=== PATIENT | female | born 1955 | race Caucasian/White ===

== ENCOUNTER 2022-08-13 15:16 | Outpatient (CLI) | payer MEDICARE, BC, SELFPAY ==
[2022-08-13 10:21] LABS: Albumin* 4.1 g/dL (3.3-5.0); Chloride* 103 mmol/L (96-114); Sodium* 140 mmol/L (135-149)
[2022-08-13 10:23] LABS: Carbon Dioxide* 26 mmol/L (20-32); Cholesterol* 244 mg/dL (90-199); Creatinine* 0.7 mg/dL (0.5-1.5); Estimated Glomerular Filt Rate 95 ml/min
[2022-08-13 10:24] LABS: Alanine Aminotransferase* 21 U/L (4-35); Alkaline Phosphatase* 70 U/L (40-150); Aspartate Amino Transferase* 24 U/L (12-35); Bilirubin Total* 0.5 mg/dL (0.1-1.5); Blood Urea Nitrogen* 18 mg/dL (7-30); Calcium* 9.1 mg/dL (8.4-10.6); Glucose* 114 mg/dL (60-115); HDL Cholesterol* 67 mg/dL (>=50); LDL Cholesterol Calculated 125 mg/dL (<100); Total Protein* 6.6 g/dL (6.0-8.3); Triglycerides* 261 mg/dL (40-149)
== END 2022-08-13 15:17 | disposition home or self-care (01) ==
PROVIDERS: PCP Family Medicine; Visit Provider Family Medicine
DX: Z00.00 Encounter for general adult medical examination without abnormal findings (principal); E78.5 Hyperlipidemia, unspecified
CPT/HCPCS: 80053; 80061

== ENCOUNTER 2022-08-18 09:20 | Outpatient (CLI) | payer MEDICARE, BC, SELFPAY ==
--- OUTSIDE RECORDS SUMMARY | 2022-08-18 09:23 | XMS_ITS | Clinical Summary ---
:1955 Author Organization [facility] Address [address] [place] [address]. [place] [address] Care Team Providers Name Role Phone Charlotte Gillespie MD Primary Care Provider [phone] Allergies Active Allergy Reactions Severity Noted Date Comments Carbamazepine Unknown 02/27/2020 Mirtazapine 12/18/2021 Weight gain Trazodone 12/18/2021 nightmares Zolpidem 12/18/2021 nightmares Medications Medication Sig Dispensed Refills Start Date End Date Status pregabalin (LYRICA) Take 100 mg by mouth 0 Active 100 MG capsule 2 times daily vitamin D3 Take 1 tablet by 0 Ac tive (CHOLECALCIFEROL) 50 mouth daily mcg (2000 units) tablet estradiol (ESTRACE) Take 1 mg by mouth 0 Active 1 MG tablet daily DULoxetine Take 20 mg by mouth 0 Active (CYMBALTA) 20 MG daily capsule polyethylene glycol Take 1 capful by 0 Active (MIRALAX) 17 GM/Dose mouth daily as powder needed for constipation multivitamin Take 1 tablet by 0 Active w/minerals mouth daily (MULTI-VITAMIN) tablet Probiotic, Take 2 capsules by 0 Active Lactobacillus, CAPS mouth daily senna-docusate Take 1 tablet by 0 Active (SENOKOT-S/PERICOLAC mouth 2 times daily E) 8.6-50 MG tablet as needed for constipation Take 0.5 - 1 tab daily PRN cetirizine (ZYRTEC) Take 10 mg by mouth 0 Active 10 MG tablet daily as needed for allergies sulfamethoxazole-tri TAKE 1 TABLET BY 0 12/21/2021 Active methoprim (BACTRIM MOUTH TWICE A DAY DS) 800-160 MG tablet ibuprofen Take 1 tablet (600 30 tablet 0 12/29/2021 Active (ADVIL/MOTRIN) 600 mg) by mouth every 6 MG hours as needed for tabletIndications: moderate pain Post-operative state Active Problems Problem Noted Date Post-operative state 12/28/2021 Social History Tobacco Use Types Packs/Day Years Used Date Smoking Tobacco: Never Smokeless Tobacco: Never Alcohol Use Standard Drinks/Week Comments Yes 0 (1 standard drink = 0.6 oz pure alcoho l) occ Sex Assigned at Date Recorded Not on file Last Filed Vital Signs Vital Sign Reading Time Taken Comments Blood Pressure 116/64 12/29/2021 3:59 AM CDT Pulse 75 12/29/2021 8:30 AM CDT Temperature 37.1 ??C (98.7 ??F) 12/29/2021 8:30 AM CDT Respiratory Rate 19 12/29/2021 8:30 AM CDT Oxygen Saturation 94% 12/29/2021 8:30 AM CDT Inhaled Oxygen Concentration - - Weight 86.2 kg (190 lb 1.6 oz) 12/28/2021 6:10 AM CDT Height 171.5 cm (5' 7.5) 12/28/2021 6:10 AM CDT Body Mass Index 29.33 12/28/2021 6:10 AM CDT Plan of Treatment Health Maintenance Due Date Last Done Comments ADVANCE CARE PLANNING 1955 ANNUAL REVIEW OF HM ORDERS 1955 CT COLONOGRAPHY 1955 DEXA 1955 FIT-DNA (Cologuard) 1955 FIT 1955 FLEX SIG 1955 HEPATITIS B IMMUNIZATION (1 1955 of 3 - 3-dose series) MAMMO SCREENING 1955 COLONOSCOPY 1965 COLORECTAL CANCER SCREENING 1965 HEPATITIS C SCREENING 1973 LIPID 2000 FALL RISK ASSESSMENT 2020 MEDICARE ANNUAL WELLNESS 2020 VISIT COVID-19 Vaccine (4 - 09/25/2021 07/31/2021, 01/13/2021, Booster for Pfizer series) 12/23/2020 PHQ-2 (once per calendar 10/17/2021 year) INFLUENZA VACCINE (#1) 2022 07/31/2021, 08/13/2020, 08/13/2020, Additional history exists Pneumococcal Vaccine: 65+ 07/07/2022 07/07/2021 Years (2 - PPSV23 if available, else PCV20) DTAP/TDAP/TD IMMUNIZATION 08/14/2028 08/14/2018, 08/13/2018 , (4 - Td or Tdap) 08/17/2011 ZOSTER IMMUNIZATION Completed 12/14/2019, 08/18/2019 IPV IMMUNIZATION Aged Out No longer eligi ble based on patient 's age to complete this topic MENINGITIS IMMUNIZATION Aged Out No longe r eligible based on patient 's age to complete this topic Medical Devices Implanted Type 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 Device Shelf Model / Identifier Expiration Serial / Date Lot Mesh Sling Advantage Fit System [id number] - [id number] Mesh N/A: Pelvis [employer] 11/30/2024 [id number] / Implanted: Qty: 1 on 12/28/2021 by Ria Sheffield MD at [facility] / [id number] Insurance Payer Benefit Plan / Subscriber ID Effective Phone Address T ype Group Dates BCBS BC[employer] [id number] 2021-Prese [phone] [address] [address] PPO BLUE nt [address] [place] [address] MEDICARE MEDICARE FOR HB [id number] 2021-Pres [phone] ATTN CLAIMS Medicare SUPPLEMENT ent 40 [address] [place] [address] Advance Directives For more information, please contact: [phone] Latest Code Status on File Code Status Date Activated Date Inactivated Comments Full Code 12/28/2021 1:25 PM 12/29/2021 5:29 PM All basic an d advanced life-sustaining interventions are performed as xi ropriate Question Answer Comments Code status determined by: 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
--- OUTSIDE RECORDS SUMMARY | 2022-08-18 09:23 | XMS_ITS | Encounter Summary ---
:1955 Author Organization [facility] Address [address] [place] [address]. 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 Female stress incontinence Prolapse of vaginal vault after hysterectomy [N99.3] Enterocele [K46.9] Female stress incontinence [N39.3] [facility] Periop Services Procedures ZZC LAP,SALPINGOSTOMY Xi Robotic Assisted Laparoscopic Sacral Colpopexy, Robotic Laparoscopic Abdominal Enterocele Repair, Cystoscopy, Possible Midurethral Sling and Posterior Repair [address] [place], [place] [address] Phone: Fax: Referral ID Status Reason Start Date Expiration Date Visits Requ ested Visits Authorized [id number] 1 1 Encounter Details Date Type Department Care Team Description 12/28/2021 - Hospital Encounter [facility] Ria Kim Post-operative 12/29/2021 [facility] Pediatric MD [facility] (Primary Dx) [address] [employer] [place], [place] [facility] [id number] [facility] [phone] [address] [facility] [address] [place] [id number] Social History Tobacco Use Types Packs/Day Years Used Date Smoking Tobacco: Never Smokeless Tobacco: Never Alcohol Use Standard Drinks/Week Comments Yes 0 (1 standard drink = 0.6 oz pure alcoho l) occ Sex Assigned at Date Recorded Not on file COVID-19 Exposure Response Date Recorded In the last month, have you been in contact with No / Unsure 12/28/2021 6:58 AM CDT someone who was confirmed or suspected to have Coronavirus / COVID-19? documented as of this encounter Last Filed Vital Signs Vital Sign Reading [...] Mass Index 29.33 12/28/2021 6:10 AM CDT documented in this encounter Discharge Instructions Discharge InstructionsGia Baker PA-C - 12/29/2021 7:40 AM CDT Prolapse/Pelvic Reconstructive Surgery Instructions for Caring for yourself after Surgery How do I manage my pain? Pain and tenderness should lessen each day. To help keep pain under control, use the following guidelines: ??? Apply ice packs to your perineum (vaginal and rectal area) for the 1st couple of days. ??? Take 600 milligrams (mg) of ibuprofen (Advil) every 6 hours for the 1st several days. ??? Use your prescribed narcotic (hydromorphone) for additional pain relief as needed. ??? Do not drive, drink alcohol or make any major decisions, such as signing important papers or managing legal issues, while taking prescription pain medication. ??? Take pain medication with food to avoid an upset stomach. How do I care for my perineum? Use pads for vaginal discharge after surgery. Discharge is normal and can last several weeks. Discharge may appear bloody, yellow or white. ??? Do not place anything in your vagina until advised by your doctor. What about bathing? Do not take a tub bath, use a hot tub or swim until advised by your doctor. You may take showers. What about bowel and bladder management? Keep stools soft and regular. We recommend using the following medicine that loosens stools and increases bowel movements: - MiraLAX- 17 grams or a capful daily following surgery. ??? When urinating, do not bear down. Relax and allow the bladder muscle to contract. If you are unable to urinate, contact your doctor. ??? If you go home with a catheter, your doctor may prescribe an antibiotic for you to take before bed to help prevent infection. Follow up in the clinic as instructed to have the catheter removed. What about activity? Do not lift more than 10 pounds for 12 weeks after surgery. Avoid heavy pushing or pulling, suchas vacuuming or lawn mowing. Your body's tissues need time to heal and regain maximum strength. ??? Keep Active. Walking is encouraged. Gradually build up how long and far you walk. Climbing stairs is OK if able. ??? You may resume driving when you are no longer taking narcotic pain medication and have the strength to use the brake pedal as needed. When do I call my doctor? Call Dr. Kim call [phone] if you have: (for urgent questions/concerns CELL PHONE [phone]) ?? -Any post-operative questions or concerns ?? -A fever over 100.4 F (38 C) ?? -Difficulty emptying your bladder ?? -Chills ?? -Worsening pain ?? -Nausea or vomiting documented in this encounter Medications at Time of Discharge Medication Sig Dispensed Refills Start Date End Date cetirizine (ZYRTEC) 10 Take 10 mg by mouth 0 MG tablet daily as needed for allergies DULoxetine (CYMBALTA) Take 20 mg by mouth 0 20 MG capsule daily estradiol (ESTRACE) 1 Take 1 mg by mouth 0 MG tablet daily ibuprofen Take 1 tablet (600 mg) 30 tablet 0 12/29/2021 (ADVIL/MOTRIN) 600 MG by mouth every 6 hours tabletIndications: as needed for moderate Post-operative state pain multivitamin w/minerals Take 1 tablet by mouth 0 (MULTI-VITAMIN) tablet daily polyethylene glycol Take 1 capful by mouth 0 (MIRALAX) 17 GM/Dose daily as needed for powder constipation pregabalin (LYRICA) 100 Take 100 mg by mouth 2 0 MG capsule times daily Probiotic, Take 2 capsules by 0 Lactobacillus, CAPS mouth daily senna-docusate Take 1 tablet by mouth 0 (SENOKOT-S/PERICOLACE) 2 times daily as 8.6-50 MG tablet needed for constipation Take 0.5 - 1 tab daily PRN sulfamethoxazole-trimet TAKE 1 TABLET BY MOUTH 0 12/21/2021 hoprim (BACTRIM DS) TWICE A DAY 800-160 MG tablet vitamin D3 Take 1 tablet by mouth 0 (CHOLECALCIFEROL) 50 daily mcg (2000 units) tablet amoxicillin-clavulanate Take 1 tablet by mouth 42 tablet 0 12/29/2021 01/12/2022 (AUGMENTIN) 500-125 MG 3 times daily for 14 tabletIndications: days Post-operative state HYDROmorphone Take 1 tablet (2 mg) 10 tablet 0 12/29/2021 0 01/01/2022 (DILAUDID) 2 MG by mouth every 6 hours tabletIndications: as needed for pain Post-operative state polyethylene glycol Take 17 g (1 capful) 510 g 0 202101/28/2022 (MIRALAX) 17 GM/Dose by mouth daily powderIndications: Post-operative state documented as of this encounter Progress Notes Alondra Vanegas RN - 12/29/2021 10:20 AM CDT Voiding Trial: 300 mL sterile water instilled into bladder. Patient voided 225 mL without issue. Patient states she had a previous incident of initially being able to urinate at the hospital, but not being able to urinate at home. Would like to have patient stay until she urinates a 2nd time before discharging to home. Gia Baker PA-C - 12/29/2021 7:29 AM CDT UROGYNECOLOGY POST-OP DAY #1 S: Doing well this morning Ambulating: up at bedside, this went okay. Plans to walk this am. Diet: regular diet, will order breakfast Flatus: none Pain control: well controlled Vaginal Pack: in place Jones catheter: in place O: Vitals: BP 116/64 Pulse 73 Temp 98.4 ??F (36.9 ??C) (Oral) Resp 16 Ht 1.715 m (5' 7.5) Wt 86.2 kg (190 lb 1.6 oz) SpO2 93% BMI 29.33 kg/m?? BMI= Body mass index is 29.33 kg/m??. Intake/Output Summary (Last 24 hours) at 12/29/2021 0729 Last data filed at 12/29/2021 0629 Gross per 24 hour Intake 3708.33 ml Output 2075 ml Net 1633.33 ml Exam: Appears healthy and well, A&O x3, resting well in bed Abdomen is soft, slight bloating, incisions C/D/I, good BS. Tegaderm and gauze pad over umbilical cyst drainage Ext SCD, no edema Jones catheter in place Vaginal packing in place no perineal edema, incisions intact. Labs: HGB: pre-op 13.1 Post-op 11.5 Assessment and Plan: POD# 1 A) Post-Operative Care: ??? ambulate ??? ADAT ??? continue with pain control strategies. ??? perform voiding trial when able to ambulate without assistance. ??? I reviewed post-operative instructions and precautions/ written information provided. ??? Discharge home anticipated this afternoon 12/29/21 ??? Follow-up based on findings of voiding trial. B) Medical: ??? 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 Umbilical cyst, home Augmentin given. Change gauze pad 2-3 times daily. Gia Baker PA-C Tatiana Woody RN - 12/29/2021 6:23 AM CDT Has had minimal pain. Rated pain as high as 3-4. Using Toradol and Cold pack. Jones catheter draining blanche colored urine. Did have some urethral discomfort. Vaginal packing in place. Five glued sites intact. 2 x 2 gauze dressing dry. Tolerated sips of water. IV infusing at 100 ml/hr. Will have AM HGBdrawn. Encourage ambulation. Encourage IS use. ILIOT Marily Beebe RN - 12/28/2021 10:48 PM CDT Vital Signs: WNL. Patient SpO2 >90% on RA. Patient on continuous capnography. Pain/Comfort: patient rating pain as a 3-4/10. PRN and scheduled pain medications given per DEC. Cold also applied. Patient stating adequate relief with current pain regimen. Patient encouraged to callRN if patient starts having increased pain. Patient stated an understanding. Assessment: surgical incisions c/d/i with service dressings intact. PIV site c/d/i with IVF infusingper DEC. Diet: patient tolerating PO intake. Fluids encouraged. Output: jones in place and draining. Activity/Ambulation: patient resting comfortably in bed. Social: patient calm and cooperative. Plan: Pain control. Maintain PIV. IVF. IV ABX. Maintain jones - monitor output. Monitor I&O. Encourage PO intake as tolerated. Monitor surgical incisions. documented in this encounter Miscellaneous Notes Care Plan - Alondra Vanegas RN - 12/29/2021 3:17 PM CDT Orientation: Alert and oriented x4 VS: WDL. LS: WDL. GI: Bowel sounds hypoactive, passing flatus. : Voiding adequately Skin: Center wound cleaned and re-dressed with gauze and tegaderm. Lap sites clean and dry. Lower pubic sites clean and dry. All closed with glue. IV: WDL. Activity: Able to stand, walk without issue. Independent in room. Pain: Rates 6/10, managed with schedule Toradol and PRN Tylenol. Updates/Plan: Patient discharged to home with spouse. Discharge education provided at bedside - bothpatient and indicated understanding. Provider Notification - Marily Beebe RN - 12/28/2021 8:32 PM CDT 2015 - patient complaining of heartburn after drinking apple juice. Per patient this has happened inthe past and she normally will take Pepcid at home for her heartburn. MD Kim notified and verbal telephone order with read-back given for 20 mg Pepcid and Tums as needed for heartburn. Order placed.Will continue to monitor. Plan of Care - Teja Garcia RN - 12/28/2021 5:41 PM CDT Orientation: Alert and oriented x4 VSS. 93% on room air. LS: Clear, equal bilaterally. GI:Not Passing gas. No BM. Denies N/V. : Adequate urine output. Jones catheter in place Skin: Incisions are well approximated and are CDI. Activity: SBA. Pt slept comfortably throughout shift. Pain: 0/10. Patient reported no pain, just some fullness in abdomen. Updates/Plan: Pain Control, promote ambulation, advance diet as tolerated. Op Note - Ria Kim MD - 12/28/2021 7:47 AM CDT OPERATIVE REPORT NAME: Regina Vargas MR#: [id number] : 1955 DATE OF OPERATION: December 28, 2021 SURGEON: Ria Kim MD PREOPERATIVE DIAGNOSES: 1. Post-hysterectomy vaginal prolapse. 2. Associated cystocele, rectocele and enterocele 3. Stress urinary incontinence 4. Abdominal wall cyst POSTOPERATIVE DIAGNOSES: 1. Post-hysterectomy vaginal prolapse. 2. Associated cystocele, rectocele and enterocele 3. Stress urinary incontinence 4. Abdominal wall cyst PROCEDURE: 1. Da Stanley laparoscopic sacral colpopexy. 2. Da Stanley laparoscopic abdominal halban enterocele repair 3. Da Stanley laparoscopic extensive lysis of adhesions >60 additional minutes 4. Retropubic midurethral sling 5. Cystourethroscopy. 6. 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 ESTIMATED BLOOD LOSS: 150 ml IV FLUIDS: Per anesthesia ml crystalloid FINDINGS: ??? The bladder was found to be free of lesion. Ureters were in their normal anatomic positions, were noted to be patent via administration of dye. ??? The adnexa were absent ??? Normal anorectal examination at the conclusion of the procedure. ??? The sigmoid colon was adhesed to the vagina canal. The descending colon was adhesed and folder over in the deep pelvis. These adhesions were taken down to gain access to the surgical anatomic sites ??? Abdominal wall cyst 4 cm diameter, located 10 cm above the umbilicus at the midline. COMPLICATIONS: ?? None DRAINS: ??? Jones catheter to gravity drainage. PACKING: ??? Saline-soaked vaginal packing placed. INDICATIONS: This patient was seen in consultation regarding post-hysterectomy prolapse. Please refer to her clinic documentation for a complete description of her evaluation and treatment plan. She was desirous ofa definitive surgical approach. Prior to the procedure the risks, benefits, indications, and alternat garo were discussed. Written and verbal consent were obtained. PROCEDURE IN DETAIL: The patient was brought to the operating suite. She was administered prophylactic IV antibiotics, she had sequential compression devices present and functioning on her lower extremities. She was placedin the supine position, administered general endotracheal anesthesia without complication. She was now carefully positioned in the dorsal lithotomy position with her legs carefully stationed in Yellowfin stirrups, with attention to avoiding pressure points. An exam under anesthesia was performed with noted vaginal relaxation, no adnexal or parametrial masses, normal anorectal exam. Incision and drainage Abdominal wall cyst: The cystic area above the umbilicus was prepped with betadine. A scapel was used to make a 2 cm incision. There was minimal serous drainage and some sebacious drainage. The area of the cyst size was approximately 4 cm. There was no purulence, no evidence of active infection. The area was re-cleansed and an occlusive tegaderm bandage was applied. This area was outside of the operative zone. She was now sterilely prepped and draped both abdominally and vaginally, and an 18-Armenian Jones catheter was placed to gravity drainage. Laparoscopic entry: At the base of the umbilicus, an 8 mm incision was created. The Veress needle was then inserted and the intra-abdominal cavity was insufflated with CO2 gas to a pressure of 15 mmHg. The 8 mm trocar wasthen inserted and inspection of the intra-abdominal cavity showed there to be no lesions. She was placed in steep Trendelenburg position and 4 additional laparoscopic ports were placed; a 8 mm right lower quadrant, 8 mm mid right quadrant, 8 mm mid left quadrant, and 8 mm far left quadrant. The da Stanley robotic arms were brought to the patient's bedside and operative control was assumed at the console. Lysis of adhesions: Using sharp, electrocautery and blunt technique, the folds of adhesed large bowel were sequentially by dividing the thin adhesions and thick adhesions. This required >60 minutes of additional effort. There was a small epiploic hematoma that was stable on the sigmoid at the level of the sacral promintory. Sacral colpopexy: A Lucite probe was placed within the vaginal canal. Anteriorly, the bladder was dissected down the anterior vaginal muscularis approximately 6 cm. Posteriorly, the peritoneum was dissected off the posterior rectovaginal septum and dissected down to, as close to the perineal body as possible (12 cm). Sacral dissection: At the sacral promontory the right ureter was noted to be lateral to the area of dissection. The peritoneum was elevated and incised. The peritoneal incision was taken down around the pelvic curvature to meet up with the posterior vaginal dissection. The peritoneal edges were carefully mobilized for future closure. At the promontory the connective tissue was dissected down to the anterior longitudinal ligament. The middle sacral vessel was cauterized. Mesh Attachment. A 5 cm x 15 cm piece of polypropylene mesh (Polyform, [employer]) was attached to the anterior vaginal muscularis using approximately 10 interrupted sutures of 2-0 PDS. An identical sheet of mesh was attached to the posterior vaginal wall using approximately 1O int errupted sutures of 2-0 PDS. The long arms of the mesh were now brought to the sacral promontory and attached to the anterior longitudinal ligament using 3 interrupted sutures of 0- Goretex. Appropriate tensioning was ascertained using visual and palpating clues. Redundant longitudinal mesh was trimmed and the resultant peritoneum was closed, thus retroperitonealizing the mesh repair. Enterocele Repair, abdominal approach: The redundant peritoneal tissue was plicated using 0-monocryl suture, this is performed to obliterated/resect the pelvic enterocele space. Surgiflow thrombin was applied to the left pelvic sidewall forcomplete hemostasis. Cystourethroscopy was now performed, which noted patent ureters bilaterally and normal appearing bladder. Laparoscopic closure: The fascia of the umbilical port was closed with 0-vicryl suture. The CO2 gas was allowed to escape from the patient's abdomen, and the resultant 5 skin incisions were closed with a subcuticular sutureof 4-0 monocryl, and skin glue was applied. Retropubic midurethral sling: Two forbes were created on the anterior abdominal wall 2.5 cm lateral to midline at the level of the pubic bone. Attention was turned to the vagina, where an Allis clamp was applied 1 cm distal from themeatus, an additional Allis clamp 2.5 cm from the meatus. Periurethral tissue was injected with a solution of Marcaine with epinephrine. A 1.5 cm incision was created between the 2 Allis clamps beneaththe mid urethra in the sagittal plane. Two periurethral tunnels were then created out laterally towards the pubic bone. Once an adequate dissection had been performed, the [employer] Advantage Fit device was selected and loaded. The trocar was brought through the patient's left periurethral tunnel, then back behind the pubic bone, through the space of Retzius, and out through the previously created timo on the anterior abdominal wall. The blue stay sheath was left in place. This was repeated in a similar fashion on the patient's right side. The urethra was diverted in ipsilateral fashion during trocar placement. Cystourethroscopy was now performed with the above noted normal findings. The cystoscope was removed. The sling material was appropriately positioned beneath the mid urethra with no overt tension. The resultant incision was closed with a running locking suture of 2-0 Vicryl. Excess sling material on the anterior abdominal wall was trimmed. The resultant incisions were closed with Dermabond. Normal anorectal examination was verified. The vagina was packed with a saline- soaked vaginal packing. She had a 16-Armenian Jones catheter present to gravity drainage. Sponge, lap, and needle counts were found to be correct. There were no complications from surgery. Patient was awoken from anesthesia and brought to the recovery room in excellent condition. Ria Kim MD Pharmacy-Admission Medication History - Chris Pickens RP - 12/24/2021 4:14 PM CST Medication reconciliation completed by pre-admitting. Prior to Admission medications Medication Sig Last Dose Taking? Auth Provider cetirizine (ZYRTEC) 10 MG tablet Take 10 mg by mouth daily as needed for allergies Yes Reported, Patient DULoxetine (CYMBALTA) 20 MG capsule Take 20 mg by mouth daily Yes Reported, Patient estradiol (ESTRACE) 1 MG tablet Take 1 mg by mouth daily Yes Reported, Patient multivitamin w/minerals (MULTI-VITAMIN) tablet Take 1 tablet by mouth daily Yes Reported, Patient polyethylene glycol (MIRALAX) 17 GM/Dose powder Take 1 capful by mouth daily as needed for constipation Yes Reported, Patient pregabalin (LYRICA) 100 MG capsule Take 100 mg by mouth 2 times daily Yes Reported, Patient Probiotic, Lactobacillus, CAPS Take 2 capsules by mouth daily Yes Reported, Patient senna-docusate (SENOKOT-S/PERICOLACE) 8.6-50 MG tablet Take 1 tablet by mouth 2 times daily as needed for constipation Take 0.5 - 1 tab daily PRN Yes Reported, Patient vitamin D3 (CHOLECALCIFEROL) 50 mcg (2000 units) tablet Take 1 tablet by mouth daily Yes Reported, Patient 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 CREATININE Routine 12/28/2021 2:09 PM Results f or this CDT procedure are i n the results section. INCISION AND 12/28/2021 7:36 AM Prolapse of vaginal DRAINAGE, TORSO CDT vault after hysterectomy Enterocele Female stress incontinence Special Needs 5'7 / 189# per H&P PROCEDURE, PELVIS, 12/28/2021 7:36 AM Prolapse of vagi nal vault after ROBOT-ASSISTED, USING CDT hysterecto my DA STANLEY XI Enterocele Female stress incontinence Special Needs 5'7 / 189# per H&P HEMOGLOBIN STAT 12/28/2021 7:10 AM CDT Resul ts for this procedure are in the results section. LAB RESULT - HIM SCAN 12/24/2021 12:00 AM APPLICATIONS PROCESSOR documented in this encounter Results (ABNORMAL) Hemoglobin (12/29/2021 6:28 AM CDT) athologist Signature Hemoglobin 11.5 (L) 11.7 - 15.7 12/29/2021 [facility] g/dL 6:40 AM CDT Specimen Anatomical Collection Method / Collection Time Recei mariana Time (Source) Location / Volume Laterality Blood STRUCTURE OF RIGHT Venipuncture / 12/29/2021 6:28 /02/2022 6:37 UPPER LIMB / Unknown AM CDT AM CDT Unknown Ria Kim MD LAB - BLOOD ORDERABLES Performing Organization Address City/State/ZIP Code Phon [place] [address] [facility] [address] Lab (1st floor, no room number) Creatinine (12/28/2021 2:09 PM CDT) athologist Signature Creatinine 0.78 0.52 - 1.04 12/28/2021 [facility] mg/dL 2:42 PM CDT GFR Estimate 83 >60 12/28/2021 [facility] mL/min/1.73 2:42 PM CDT m2 Comment: Effective October 06, 2021 eGF Rcr in adults is calculated using the 2020 CKD-EPI creatinine equation which includ es age and gender (Pam et al., NEJM, DOI: 10.1056/DKCOcu0330494) Specimen Anatomical Collection Method / Collection Time Recei mariana Time (Source) Location / Volume Laterality Blood STRUCTURE OF RIGHT Venipuncture / 12/28/2021 2:09 03/01/2022 2:14 UPPER LIMB / Unknown PM CDT PM CDT Unknown Ria Kim MD LAB - BLOOD ORDERABLES Performing Organization Address City/State/ZIP Code [place] [address] [facility] [address] Lab (1st floor, no room number) Hemoglobin (12/28/2021 7:10 AM CDT) P athologist Signature Hemoglobin 13.1 11.7 - 15.7 12/28/2021 [facility] g/dL 7:17 AM CDT Specimen Anatomical Collection Method / Collection Time Recei mariana Time (Source) Location / Volume Laterality Blood STRUCTURE OF LEFT Venipuncture / 12/28/2021 7:10 12/28 7:13 HAND / Unknown Unknown AM CDT AM CDT Ria Kim MD LAB - BLOOD ORDERABLES Performing Organization Address City/State/ZIP Code [place] [address] [facility] [address] Lab (1st floor, no room number) LAB RESULT - HIM SCAN (12/24/2021 12:00 AM APPLICATIONS PROCESSOR) Specimen (Source) Anatomical Location Collection Method / Collectio n Time Received Time / Laterality Volume 12/24/2021 Narrative This result has an attachment that is no t available. Provider Scan [facility] NON-BEAKER LAB TESTING documented in this encounter Visit Diagnoses Diagnosis Post-operative state - Primary Other postprocedural status Post-operative state Other postprocedural status documented in this encounter Admitting Diagnoses Diagnosis Post-operative state Other postprocedural status documented in this encounter Administered Medications Inactive Administered Medications - up to 3 most recent administrations Medication Order MAR Action Action Date Dose Rate Site acetaminophen (TYLENOL) tablet 325 Given 12/29/2021 6:37 AM CDT 325 mg mg 325 mg, Oral, EVERY 4 HOURS PRN, mild pain, fever, Starting on 12/28/21 at 1325, Maximum acetaminophen dose from all sources = 75 mg/kg/day not to exceed 4 grams/day. acetaminophen (TYLENOL) tablet 975 mg Given 12/28/2021 7:15 AM CDT 975 mg 975 mg, Oral, ONCE, On Tue12/28/21 at 0700, For 1 dose, Give within 60 min of procedure. Hold if patient has taken acetaminophen within 4 hours. Maximum acetaminophen dose from all sources = 75 mg/kg/day not to exceed 4 grams/day., Pre-procedure acetaminophen (TYLENOL) tablet 975 mg Given 12/29/2021 11:27 AM CDT 975 mg 975 mg, Oral, EVERY 6 HOURS PRN, mild pain, fever, Starting on Tue12/29/21 at 1120, Maximum acetaminophen dose from all sources = 75 mg/kg/day not to exceed 4 grams/day. calcium carbonate (TUMS) chewable tablet 500 Given 8:44 PM CDT 500 mg mg 500 mg, Oral, 3 TIMES DAILY PRN, heartburn, Starting on Tue12/28/21 at 2026 DULoxetine (CYMBALTA) DR capsule 20 mg Given 12/29/2021 8:35 AM CDT 20 mg 20 mg, Oral, DAILY, First dose (after last modification) on Tue12/29/21 at 0800 estradiol (ESTRACE) tablet 1 mg Given 12/29/2021 12:13 PM CDT 1 mg 1 mg, Oral, DAILY, First dose on Tue12/29/21 at 1130 famotidine (PEPCID) tablet 20 mg Given 12/29/2021 8:35 AM CDT 20 mg 20 mg, Oral, DAILY, First dose on Tue12/28/21 at 2030 Given 12/28/2021 8:44 PM CDT 20 mg HYDROmorphone (DILAUDID) injection 0.2 m g 0.2 mg, Intravenous, EVERY 2 HOURS PRN, other, moderate pain (pain rating 4-6) IF patient unable to take oral pain medication or pain no t controlled with oral analgesics, Starting on Tue12/28/21 at 1 325, Hold IV PRN opioid dose for analgesic side effects. Notify provider to assess for uncontroll ed pain or analgesic side effects. HYDROmorphone (DILAUDID) injection 0.4 m g 0.4 mg, Intravenous, EVERY 2 HOURS PRN, other, severe pain (pain rating 7-10) IF patient unable to take oral pain medication or pain no t controlled with oral analgesics, Starting on Tue12/28/21 at 1 325, Hold IV PRN opioid dose for analgesic side effects. Notify provider to assess for uncontroll ed pain or analgesic side effects. HYDROmorphone (DILAUDID) tablet 2 mg Given 12/28/2021 7:24 PM CDT 2 mg 2 mg, Oral, EVERY 4 HOURS PRN, other, moderate pain (pain rating 4-6)., Starting on Tue12/28/21 at 1325, Hold oral PRN dose for analgesic side effects. Notify provider to assess for uncontrolled pain or analgesic side effects. Hold while on IV PLANNED GIVING OFFICER or with regular IV opioid dosing. HYDROmorphone (DILAUDID) tablet 4 mg 4 mg, Oral, EVERY 4 HOURS PRN, severe pa in, (pain rating 7-10)., Starting on Tue12/28/21 at 1325, Hold oral PRN dose for analgesic side effects. Notify provider to assess for uncontrolled pain or analgesic side effects . Hold while on IV PLANNED GIVING OFFICER or with regular IV opioid dosing. ketorolac (TORADOL) injection 15 mg Given 12/29/2021 8:34 AM CDT 15 mg 15 mg, Intravenous, EVERY 6 HOURS, First dose on Tue12/28/21 at 1400, For 4 doses, Age greater than or equal to 65 years OR CrCl 30- 50 mL/min. May continue use for up to 5 days MAX if order renewed. IF celecoxib (CELEBREX) was given pre-operatively, start ketorolac (TORADOL) 12 hours after celecoxib (CELEBREX) given. Can cause pain on injection. If ordered intravenously (IV) : administer through a running maintenance fluid over 1 minute followed by a flush. If patient complains of pain on injection, may dilute 15-30 mg in 5 mL and push over 1 to 2 minutes. Given 12/29/2021 1:56 AM CDT 15 mg Given 12/28/2021 8:17 PM CDT 15 mg naloxone (NARCAN) injection 0.2 mg 0.2 mg, Intravenous, EVERY 2 MIN PRN, op ioid reversal, Starting on Tue12/28/21 at 1337, Administer intravenous route when available and notify provider when administered. For unintended sedation or respiratory depression if all of the below criteria are met: ~ respiratory rate LES S than or EQUAL to 8. ~SaO2 less than 92% and or/end-tidal CO2 is greater than 50. ~ the patient is receiving an opioid, has unintended sedations assessed as RASS (-3), and is cur rently not on mechanical ventilation. RASS scale moderate (-3) is movement or eye opening to voice but no eye contact. Patient Monitoring Once the patient has demonstrated a response to the naloxone, continue to monitor respiratory rate, depth, oxygen saturation and end-tidal CO2 (if available) every 15 mi nutes x 2, then every 30 minutes x 2, then every 1 hour x 1 after each naloxone dose. Consider tr ansfer to ICU if patient respiratory parameters have not improved after 4 nalox one doses. naloxone (NARCAN) injection 0.2 mg 0.2 mg, Intramuscular, EVERY 2 MIN PRN, opioid reversal, Starting on Tue12/28/21 at 1337, Administer intramuscular if an int ravenous route is not available and notify provider when administered. For unintend ed sedation or respiratory depression if all of the below criteria are met: ~ respiratory rate LESS than or EQUAL to 8. ~SaO2 less than 92% and or/end-tidal CO2 is greater th an 50. ~ the patient is receiving an opioid, has unintended sedations assessed as RASS (-3), and is currently not on mechanical ventilation. RASS scale moderate (-3) is movement or eye opening to voice but no eye contact. Patient Monitoring Once the patient has demonstrated a response to the naloxone, continue to m onitor respiratory rate, depth, oxygen saturation and end-tidal CO2 (if availab le) every 15 minutes x 2, then every 30 minutes x 2, then every 1 hour x 1 after each naloxone dose. Consider transfer to ICU if patient respiratory parameters have not improved after 4 naloxone doses. naloxone (NARCAN) injection 0.4 mg 0.4 mg, Intravenous, EVERY 2 MIN PRN, op ioid reversal, Starting on Tue12/28/21 at 1337, Administer intravenous route when available and notify provider when administered. For unintended sedation or respiratory depression if all of the below criteria are met: ~ respiratory rate LES S than or EQUAL to 8. ~ SaO2 less than 92% and or/end-tidal CO2 is greater than 50. ~ the patient is receiving an opioid, has unintended sedation assessed as RASS (-4 ) or (-5) and patient is currently not on mechanical ventilation. RASS scale (-4) is deep sedation with no response to voice but movement or eye opening to physical stimulation. R ASS scale (-5) is unarousable. Patient Monitoring Once the patient has demonstrated a response to the naloxone, continue to monitor respiratory rate, depth, oxygen saturation and end-tidal CO2 (if available) every 15 mi nutes x 2, then every 30 minutes x 2, then every 1 hour x 1 after each naloxone dose. Consider tr ansfer to ICU if patient respiratory parameters have not improved after 4 nalox one doses. naloxone (NARCAN) injection 0.4 mg 0.4 mg, Intramuscular, EVERY 2 MIN PRN, opioid reversal, Starting on Tue12/28/21 at 1337, Administer intramuscular if an int ravenous route is not available and notify provider when administered. For unintend ed sedation or respiratory depression if all of the below criteria are met: ~ res piratory rate LESS than or EQUAL to 8. ~ SaO2 less than 92% and or/end-tidal CO2 is greater ronald n 50. ~ the patient is receiving an opioid, has unintended sedation assessed as RASS (-4) or (-5) and patient is currently not on mechanical ventilation. RA SS scale (-4) is deep sedation with no response to voice but movement or eye opening to physical stimulation. RASS scale (-5) is unarousa ble. Patient Monitoring Once the patient has demonstrated a response to the nalox one, continue to monitor respiratory rate, depth, oxygen saturation and end-tidal CO2 (if availab le) every 15 minutes x 2, then every 30 minutes x 2, then every 1 hour x 1 after each naloxone dose. Consider transfer to ICU if patient respiratory parameters have not improved after 4 naloxone doses. ondansetron (ZOFRAN) injection 4 mg 4 mg, Intravenous, EVERY 6 HOURS PRN, nausea, vomiting , Administer over 2-5 Minutes, Starting on Tue12/28/21 at 1325 , Give IF patient unable to tolerate oral medication. This is Step 1 of nausea and vomiting cody gement. If nausea not resolved in 15 minutes, go to Step 2 prochlorperazine (COMPAZINE). Irritant. ondansetron (ZOFRAN-ODT) ODT tab 4 mg 4 mg, Oral, EVERY 6 HOURS PRN, nausea, v omiting, Starting on Tue12/28/21 at 1325, This is Step 1 of nausea and vomiting management. If n ausea not resolved in 15 minutes, go to Step 2 prochlorperazine ( COMPAZINE). With dry hands, peel back foil backing and gently remove tablet. Do not push oral disintegrating tablet through foil backing. Administer immediately on tongue and ora l disintegrating tablet dissolves in seconds, then swallow with saliva. Liquid not required. phenazopyridine (PYRIDIUM) tablet 200 mg Given 12/28/2021 7:16 AM CDT 200 mg 200 mg, Oral, ONCE, On Tue12/28/21 at 0700, For 1 dose, Give in preop holding room with small sip of water., Pre-procedure piperacillin-tazobactam (ZOSYN) New Bag 12/29/2021 8:35 AM CDT 3.375 g 200 mL/hr 3.375 g vial to attach to NS 100 mL bag Routine, 3.375 g, Intravenous, EVERY 6 HOURS, First dose on Tue12/28/21 at 1400, Lactated Ringer's solution is not compatible with piperacillin-tazobactam for injection. , Indications: Perioperative Pharmacoprophylaxis New Bag 12/29/2021 1:57 AM CDT 3.375 g 200 mL/hr New Bag 12/28/2021 8:17 PM CDT 3.375 g polyethylene glycol (MIRALAX) Packet 17 g Given 12/29/2021 8:35 AM CDT 17 g 17 g, Oral, DAILY, First dose on Tue12/28/21 at 1330, 1 Packet = 17 grams. Mix each gram with at least 1/2 ounce (15 mL) of water - 8 ounces for 17 g dose, 4 ounces for 8.5 g dose, 2 ounces for 4 g dose. Follow with the same volume of water. Hold for loose stools unless being administered as part of a bowel prep regimen or bowel clean out. pregabalin (LYRICA) capsule 100 mg Given 12/29/2021 8:35 AM CDT 100 mg 100 mg, Oral, 2 TIMES DAILY, First dose on Tue12/28/21 at 2000 Given 12/28/2021 8:18 PM CDT 100 mg prochlorperazine (COMPAZINE) injection 5 mg 5 mg, Intravenous, EVERY 6 HOURS PRN, nausea, vomiting , Administer over 1-2 Minutes, Starting on Tue12/28/21 at 1325 , Give IF patient unable to tolerate oral medication. This is Step 2 of nausea and vomiting management. Give if nausea not resolved 15 minutes after giving ondanse cynthia (ZOFRAN). If nausea not resolved in 15-30 minutes, Notify provider. prochlorperazine (COMPAZINE) suppository 12.5 mg 12.5 mg, Rectal, EVERY 12 HOURS PRN, roxann sea, vomiting, Starting on Tue12/28/21 at 1325, This is Step 2 of nausea and vomit ing management. Give if nausea not resolved 15 minutes after giving ondansetron (ZOFRAN). If nause a not resolved in 15-30 minutes, Notify provider. prochlorperazine (COMPAZINE) tablet 5 mg 5 mg, Oral, EVERY 6 HOURS PRN, vomiting, Starting on Tue12/28/21 at 1325, This is Step 2 of nausea and vomiting management . Give if nausea not resolved 15 minutes after giving ondansetron (ZOFRAN). If na usea not resolved in 15-30 minutes, Notify provider. sodium chloride (PF) 0.9% PF flush 3 mL 3 mL, Intravenous, EVERY 1 HOUR PRN, daisy e flush, post meds or blood draw, Starting on Tue12/28/21 at 1325, for peripheral IV line flush p ost IV meds sodium chloride (PF) 0.9% PF flush 3 mL 3 mL, Intravenous, EVERY 8 HOURS, First dose on Tue at 1330, to lock peripheral IV dormant line. Also Ordered Q1H PRN sodium chloride (PF) 0.9% PF flush 3 mL 3 mL, Intravenous, EVERY 1 HOUR PRN, line flush, to lo ck peripheral IV dormant line., Starting on Tue12/28/21 at 1325, Also Ordered E VERY 8 HOURS. sodium chloride 0.9% infusion New Bag 12/29/2021 12:42 AM CDT 100 mL/hr at 100 mL/hr, Intravenous, CONTINUOUS, Starting on Tue12/28/21 at 1330, Until Tue12/29/21 at 1724 New Bag 12/28/2021 1:42 PM CDT 100 mL/hr Vitamin D3 (CHOLECALCIFEROL) tablet 50 m cg Given 12/29/2021 12:13 PM CDT 50 mcg 50 mcg, Oral, DAILY, First dose on Tue12/29/21 at 1130, Note: 25 mcg = 1000 units documented in this encounter Active and Recently Administered Medications Due to Daylight Saving Time, this section may contain times in both APPLICATIONS PROCESSOR and CDT. Scheduled Medication Order 12/27/2021 12/28/2021 12/29/2021 acetaminophen (TYLENOL) tablet 975 mg (COMPLETED) 714 (Given - Provider: Chaim Reddy RN) 975 mg, Oral, ONCE, On Tue12/28/21 at 07 00, For 1 dose, Give within 60 min of procedure. Hold if patient has taken acetaminophen within 4 hours. Maximum acetaminophen dose from all sources = 75 mg/kg/day not to exceed 4 grams/day., Pre-procedure ceFAZolin Sodium (ANCEF) injection 2 g (COMPLETED) 0800 (Given - Provider: Estrellita Terrazas APRN INFORMATION COORDINATOR)1200 (Given - Provider: Estrellita Terrazas APRN CRNA) Routine, 2 g, Intravenous, PRE-OP/PRE-NE OCEDURE, Starting on Tue12/28/21 at 0643, For 1 dose, Give first dose within 1 hour PRIOR to incision. If patient weight is greater than or equal to 120 kg increa se dose to 3 g., Indications: Perioperative Pharmacoprophyla xis, Pre-procedure DULoxetine (CYMBALTA) DR capsule 20 mg 0835 (Given - Provider: Alondra Vanegas, ISAURO) 20 mg, Oral, DAILY, First dose (after last modificatio n) on Tue12/29/21 at 0800 estradiol (ESTRACE) tablet 1 mg 1213 (Given - Provider: Alondra Vanegas, ISAURO) 1 mg, Oral, DAILY, First dose on Tue12/29/21 at 1130 famotidine (PEPCID) tablet 20 mg 4 (Given - P rovider: Marily Beebe RN) 0835 (Given - Provider: Alondra Vanegas RN) 20 mg, Oral, DAILY, First dose on Tue12/28/21 at 2030 ketorolac (TORADOL) injection 15 mg (COMPLETED) 1411 (Given - Provider: Teja Garcia RN)2016 (Given - Provider: Marily Beebe RN) 0156 (Given - Provider: Tatiana Woody RN)0834 (Given - Provider: Alondra Vanegas RN) 15 mg, Intravenous, EVERY 6 HOURS, First dose on Tue12/28/21 at 1400, For 4 doses, Age greater than or equal to 65 years OR CrCl 30- 50 mL/min. May continue use for up to 5 days MAX if order renewed. IF celecoxib (CELEBREX) was given pre-oper atively, start ketorolac (TORADOL) 12 hours after celecoxib (CELEBREX) given. Can cause pain on injection. If ordered intravenously (IV) : administer through a ru nning maintenance fluid over 1 minute fo llowed by a flush. If patient complains of pain on injection, may dilute 15-30 mg in 5 mL and push over 1 to 2 minutes. phenazopyridine (PYRIDIUM) tablet 200 mg (COMPLETED) 715 (Given - Provider: Chaim Reddy RN) 200 mg, Oral, ONCE, On Tue12/28/21 at 07 00, For 1 dose, Give in preop holding room with small sip of water., Pre-procedure piperacillin-tazobactam (ZOSYN) 3.375 g vial to attach to NS 100 mL bag 142 (New Bag - Provider: Teja Garcia RN)2016 (New Bag - Provider: Marily Beeeb RN) 0157 (New Bag - Provider: Tatiana corcoran RN)0835 (New Bag - Provider: Alondra Vanegas RN)1400 (Canceled Entry - Provider: Orders Generic Provider - Comment: Automatically canceled at discontinue of medication order) Routine, 3.375 g, Intravenous, EVERY 6 H OURS, First dose on Tue12/28/21 at 1400, Lactated Ringer's solution is not compatible with piperacillin-tazobactam for injection. , Indications: Perioperative Pharmacoprophylaxis polyethylene glycol (MIRALAX) Packet 17 g 1422 (Not Given - Provider: Teja Garcia RN - Reason: Patient/family refused) 0835 (Given - Provider: Alondra Vanegas RN) 17 g, Oral, DAILY, First dose on 12/15 at 1330, 1 Packet = 17 grams. Mix each gram with at least 1/2 ounce (15 mL) of water - 8 ounces for 17 g dose, 4 ounces for 8.5 g dose, 2 ounces for 4 g dose . Follow with the same volume of water. Hold for loose stools unless being administered as part of a bowel prep regimen or bowel clean out. pregabalin (LYRICA) capsule 100 mg 2017 (Given - Provider: Marily Beebe RN) 0835 (Given - Provider: Alondra chambers RN) 100 mg, Oral, 2 TIMES DAILY, First dose on Tue12/28/21 at 2000 sodium chloride (PF) 0.9% PF flush 3 mL 1351 (Not Given - Provider: Teja Garcia RN - Reason: IV Infusing)2040 (Not Given - Provider: Marily Beebe RN - Reason: IV Infusing) 0530 (Canceled Entry - Provider: Tatiana schreiber RN)1313 (Not Given - Provider: Alondra Vanegas RN - Reason: Other - Comment: IV removed) 3 mL, Intravenous, EVERY 8 HOURS, First dose on Tue12/28/21 at 1330, to lock peripheral IV dormant line. Also Ordered Q1H PRN Vitamin D3 (CHOLECALCIFEROL) tablet 50 mcg 1213 (Given - Provider: Alondra Vanegas RN) 50 mcg, Oral, DAILY, First dose on Tue at 1130, Note: 25 mcg = 1000 units Continuous Medication Order 12/27/2021 12/28/2021 12/29/2021 sodium chloride 0.9% infusion 1342 (New Bag - Pr ovider: Teja Garcia RN) 0042 (New Bag - Provider: Tatiana Woody RN)0928 (Stopped - Provider: Alondra Vanegas RN) at 100 mL/hr, Intravenous, CONTINUOUS, S tarting on Tue12/28/21 at 1330, Until Tue12/29/21 at 1724 PRN Medication Order 12/27/2021 12/28/2021 12/29/2021 acetaminophen (TYLENOL) tablet 325 mg (CANCELED) 0637 (Given - Provider: Tatiana Woody, RN) 325 mg, Oral, EVERY 4 HOURS PRN, mild pa in, fever, Starting on Tue12/28/21 at 1325, Maximum acetaminophen dose from all sources = 75 mg/kg/day not to exceed 4 grams/day. acetaminophen (TYLENOL) tablet 975 mg 1127 (Given - Provider: Alondra Vanegas RN) 975 mg, Oral, EVERY 6 HOURS PRN, mild pa in, fever, Starting on Tue12/29/21 at 1120, Maximum acetaminophen dose from all sources = 75 mg/kg/day not to exceed 4 grams/day. calcium carbonate (TUMS) chewable tablet 500 mg 2043 (Given - Provider: Marily Beebe RN) 500 mg, Oral, 3 TIMES DAILY PRN, heartburn, Starting on 12/28 at 2027 hemostatic matrix (SURGIFLO) kit (CANCELED) 1154 (Given - Provider: Ria Kim MD) PRN, Starting on Tue12/28/21 at 1154, Intra-procedure HYDROmorphone (DILAUDID) injection 0.2 mg(Linked Group 1) 0.2 mg, Intravenous, EVERY 2 HOURS PRN, other, moderate pain (pain rating 4-6) IF patient unable to take oral pain medication or pain not controlled with oral analgesics, Starting on Tue12/28/21 at 1325 , Hold IV PRN opioid dose for analgesic side effects. Notify provider to assess for uncontrolled pain or analgesic side effects. HYDROmorphone (DILAUDID) injection 0.4 mg(Linked Group 1) 0.4 mg, Intravenous, EVERY 2 HOURS PRN, other, severe pain (pain rating 7-10) IF patient unable to take oral pain medication or pain not controlled with oral analgesics, Starting on Tue12/28/21 at 1325, Hold IV PRN opioid dose for analgesic s pop effects. Notify provider to assess for uncontrolled pain or analgesic side effects. HYDROmorphone (DILAUDID) tablet 2 mg(Linked Group 2) 192 (Given - Provider: Teja Garcia, ISAURO) 2 mg, Oral, EVERY 4 HOURS PRN, other, mo derate pain (pain rating 4-6)., Starting on Tue12/28/21 at 1325, Hold oral PRN dose for analgesic side effects. Notify provider to assess for uncontrolled pain or analgesic side effects. Hold while on IV PLANNED GIVING OFFICER or with regular IV opioid dosing. HYDROmorphone (DILAUDID) tablet 4 mg(Linked Group 2) 1923 (See Alternative - Provider: Teja Garcia RN) 4 mg, Oral, EVERY 4 HOURS PRN, severe pa in, (pain rating 7-10)., Starting on Tue12/28/21 at 1325, Hold oral PRN dose for analgesic side effects. Notify provider to assess for uncontrolled pain or analge sic side effects. Hold while on IV PLANNED GIVING OFFICER or with regular IV opioid dosing. lidocaine 1%/EPINEPHrine 1:100,000 with bupivacaine 0.5% mixed 1:1 60 mL (CANCELED) 1154 (Given - Provider: Ria gilmore MD) PRN, Starting on Tue12/28/21 at 1154, Intra-procedure naloxone (NARCAN) injection 0.2 mg(Linked Group 3) 0.2 mg, Intravenous, EVERY 2 MIN PRN, op ioid reversal, Starting on Tue12/28/21 at 1337, Administer intravenous route when available and notify provider when administered. For unintended sedation or resp iratory depression if all of the below c riteria are met: ~ respiratory rate LESS than or EQUAL to 8. ~SaO2 less than 92% and or/end-tidal CO2 is greater than 50. ~ the patient is receiving an opioid, vargas s unintended sedations assessed as RASS (-3), and is currently not on mechanical ventilation. RASS scale moderate (-3) is movement or eye opening to voice but no eye contact. Patient Monitoring Once the patient has demonstrated a response to the naloxone, continue to monitor respiratory rate, depth, oxygen saturation and end-tidal CO2 (if available) every 15 minutes x 2, then every 30 minutes x 2, the n every 1 hour x 1 after each naloxone d ose. Consider transfer to ICU if patient respiratory parameters have not improved after 4 naloxone doses. naloxone (NARCAN) injection 0.2 mg(Linked Group 3) 0.2 mg, Intramuscular, EVERY 2 MIN PRN, opioid reversal, Starting on Tue12/28/21 at 1337, Administer intramuscular if an intravenous route is not available and notify provider when administered. For uni ntended sedation or respiratory depressi on if all of the below criteria are met: ~ respiratory rate LESS than or EQUAL to 8. ~SaO2 less than 92% and or/end-tidal CO2 is greater than 50. ~ the patient is receiving an opioid, has unintended sed ations assessed as RASS (-3), and is currently not on mechanical ventilation. RASS scale moderate (-3) is movement or eye opening to voice but no eye contact. Pat ient Monitoring Once the patient has dem onstrated a response to the naloxone, continue to monitor respiratory rate, depth, oxygen saturation and end-tidal CO2 (if available) every 15 minutes x 2, then e very 30 minutes x 2, then every 1 hour x 1 after each naloxone dose. Consider transfer to ICU if patient respiratory parameters have not improved after 4 naloxone doses. naloxone (NARCAN) injection 0.4 mg(Linked Group 3) 0.4 mg, Intravenous, EVERY 2 MIN PRN, op ioid reversal, Starting on Tue12/28/21 at 1337, Administer intravenous route when available and notify provider when administered. For unintended sedation or resp iratory depression if all of the below c riteria are met: ~ respiratory rate LESS than or EQUAL to 8. ~ SaO2 less than 92% and or/end-tidal CO2 is greater than 50. ~ the patient is receiving an opioid, h as unintended sedation assessed as RASS (-4) or (-5) and patient is currently not on mechanical ventilation. RASS scale (-4) is deep sedation with no response to voice but movement or eye opening to phy sical stimulation. RASS scale (-5) is un arousable. Patient Monitoring Once the patient has demonstrated a response to the naloxone, continue to monitor respiratory rate, depth, oxygen saturation and end -tidal CO2 (if available) every 15 minut es x 2, then every 30 minutes x 2, then every 1 hour x 1 after each naloxone dose. Consider transfer to ICU if patient respiratory parameters have not improved after 4 naloxone doses. naloxone (NARCAN) injection 0.4 mg(Linked Group 3) 0.4 mg, Intramuscular, EVERY 2 MIN PRN, opioid reversal, Starting on Tue12/28/21 at 1337, Administer intramuscular if an intravenous route is not available and notify provider when administered. For uni ntended sedation or respiratory depressi on if all of the below criteria are met: ~ respiratory rate LESS than or EQUAL to 8. ~ SaO2 less than 92% and or/end- tidal CO2 is greater than 50. ~ the patient i s receiving an opioid, has unintended se dation assessed as RASS (-4) or (-5) and patient is currently not on mechanical ventilation. RASS scale (-4) is deep sedation with no response to voice but moveme nt or eye opening to physical stimulatio n. RASS scale (-5) is unarousable. Patient Monitoring Once the patient has demonstrated a response to the naloxone, continue to monitor respiratory rate, depth, o xygen saturation and end-tidal CO2 (if a vailable) every 15 minutes x 2, then every 30 minutes x 2, then every 1 hour x 1 after each naloxone dose. Consider transfer to ICU if patient respiratory parameters have not improved after 4 naloxone doses. ondansetron (ZOFRAN) injection 4 mg(Linked Group 4) 4 mg, Intravenous, EVERY 6 HOURS PRN, na usea, vomiting, Administer over 2-5 Minutes, Starting on Tue12/28/21 at 1325, Give IF patient unable to tolerate oral medication. This is Step 1 of nausea and vom iting management. If nausea not resolved in 15 minutes, go to Step 2 prochlorperazine (COMPAZINE). Irritant. ondansetron (ZOFRAN-ODT) ODT tab 4 mg(Linked Group 4) 4 mg, Oral, EVERY 6 HOURS PRN, nausea, v omiting, Starting on Tue12/28/21 at 1325, This is Step 1 of nausea and vomiting management. If nausea not resolved in 15 minutes, go to Step 2 prochlorperazine (C OMPAZINE). With dry hands, peel back foi l backing and gently remove tablet. Do not push oral disintegrating tablet through foil backing. Administer immediately on tongue and oral disintegrating tablet d issolves in seconds, then swallow with saliva. Liquid not requir ed. prochlorperazine (COMPAZINE) injection 5 mg(Linked Group 5) 5 mg, Intravenous, EVERY 6 HOURS PRN, na usea, vomiting, Administer over 1-2 Minutes, Starting on Tue12/28/21 at 1325, Give IF patient unable to tolerate oral medication. This is Step 2 of nausea and vom iting management. Give if nausea not res olved 15 minutes after giving ondansetron (ZOFRAN). If nausea not resolved in 15-30 minutes, Notify provider. prochlorperazine (COMPAZINE) suppository 12.5 mg(Linked Group 5) 12.5 mg, Rectal, EVERY 12 HOURS PRN, roxann sea, vomiting, Starting on Tue12/28/21 at 1325, This is Step 2 of nausea and vomiting management. Give if nausea not resolved 15 minutes after giving ondansetron (ZOFRAN). If nausea not resolved in 15-30 minutes, Notify provid er. prochlorperazine (COMPAZINE) tablet 5 mg(Linked Group 5) 5 mg, Oral, EVERY 6 HOURS PRN, vomiting, Starting on Tue12/28/21 at 1325, This is Step 2 of nausea and vomiting management. Give if nausea not resolved 15 minutes after giving ondansetron (ZOFRAN). If n ausea not resolved in 15-30 minutes, Notify provider. sodium chloride (PF) 0.9% PF flush 3 mL 3 mL, Intravenous, EVERY 1 HOUR PRN, daisy e flush, post meds or blood draw, Starting on Tue12/28/21 at 1325, for peripheral IV line flush post IV meds sodium chloride (PF) 0.9% PF flush 3 mL 3 mL, Intravenous, EVERY 1 HOUR PRN, daisy e flush, to lock peripheral IV dormant line., Starting on Tue12/28/21 at 1325, Also Ordered EVERY 8 HOURS. Linked Groups Order Group 1: HYDROmorphone (DILAUDID) injection 0.2 mgJump to med 0.2 mg, Intravenous, EVERY 2 HOURS PRN, other, moderate pain (pain rating 4-6) IF patient unable to take oral pain medication or pain not controlled with oral analgesics, Starting on Tue12/28/21 at 1325
Hold IV PRN opioid dose for analgesi c side effects. Notify provider to assess for uncontrolled pain or analgesic side effects.
Or HYDROmorphone (DILAUDID) injection 0.4 mgJump to med 0.4 mg, Intravenous, EVERY 2 HOURS PRN, other, severe pain (pain rating 7-10) IF patient unable to take oral pain medication or pain not controlled with oral analgesics, Starting on Tue12/28/21 at 1325& lt;br>Hold IV PRN opioid dose for analge sic side effects. Notify provider to assess for uncontrolled pain or analgesic side effects.
Group 2: HYDROmorphone (DILAUDID) tablet 2 mgJump to med 2 mg, Oral, EVERY 4 HOURS PRN, other, mo derate pain (pain rating 4-6)., Starting on Tue12/28/21 at 1325
Hold oral PRN dose for analgesic side effects. Notify provider to assess for uncontrolled pain or analgesic side effects. Hold wh ile on IV PLANNED GIVING OFFICER or with regular IV opioid dosing.
Or HYDROmorphone (DILAUDID) tablet 4 mgJump to med 4 mg, Oral, EVERY 4 HOURS PRN, severe pa in, (pain rating 7-10)., Starting on Tue12/28/21 at 1325
Hold oral PRN dose for analgesic side effects. Notify provider to assess for uncontrolled pain o r analgesic side effects. Hold while on IV PLANNED GIVING OFFICER or with regular IV opioid dosing.
Group 3: naloxone (NARCAN) injection 0.2 mgJump to med 0.2 mg, Intravenous, EVERY 2 MIN PRN, op ioid reversal, Starting on Tue12/28/21 at 1337
Administer intravenous route when available and notify provider when administered. For unintended sedation or respiratory depression if a ll of the below criteria are met: ~ respiratory rate LESS than or EQUAL to 8. ~SaO2 less than 92% and or/end- tidal CO2 is greater than 50.& nbsp;~ the patient is receiving an opioi d, has unintended sedations assessed as RASS (-3), and is currently not on mechanical ventilation. RASS scale moderate (-3) is movement or eye opening to voice but no eye contact.&nbs p; Patient Monitoring Once the patient has demonstrated a response to the naloxone, continue to monitor respiratory rate, depth, oxygen satu ration and end-tidal CO2 (if available) every 15 minutes x 2, then every 30 minutes x 2, then every 1 hour x 1 after each naloxone dose. Consider transfer to ICU if patient respirator y parameters have not improved after 4 n aloxone doses.
Or naloxone (NARCAN) injection 0.4 mgJump to med 0.4 mg, Intravenous, EVERY 2 MIN PRN, op ioid reversal, Starting on Tue12/28/21 at 1337
Administer intravenous route when available and notify provider when administered. For unintended sedation or respiratory depression if a ll of the below criteria are met: ~ respiratory rate LESS than or EQUAL to 8. ~ SaO2 less than 92% and or/end- tidal CO2 is greater than 50.& nbsp;~ the patient is receiving an opioi d, has unintended sedation assessed as RASS (-4) or (-5) and patient is currently not on mechanical ventilation. RASS scale (-4) is deep sedati on with no response to voice but movemen t or eye opening to physical stimulation. RASS scale (-5) is unarousable. Patient Monitoring On ce the patient has demonstrated a respon se to the naloxone, continue to monitor respiratory rate, depth, oxygen saturation and end-tidal CO2 (if available) every 15 minutes x 2, then every 30 minutes x 2, then every 1 hour x 1 after each nalo xone dose. Consider transfer to ICU if patient respiratory parameters have not improved after 4 naloxone doses.
Or naloxone (NARCAN) injection 0.2 mgJump to med 0.2 mg, Intramuscular, EVERY 2 MIN PRN, opioid reversal, Starting on Tue12/28/21 at 1337
Administer intramuscular if an intravenous route is not available and notify provider when administered. For unintended sedation or respira tory depression if all of the below criteria are met: ~ respiratory rate LESS than or EQUAL to 8. ~SaO2 less than 92% and or/end-tidal CO2 is greater than 50. ~ the patient i s receiving an opioid, has unintended sedations assessed as RASS (-3), and is currently not on mechanical ventilation. RASS scale moderate (-3) is movement or eye opening to voice but no eye contact. Patient Monitoring Once the patient has demonstrated a response to the naloxone, continue to monitor respiratory rate, depth, oxygen saturation and end-t idal CO2 (if available) every 15 minutes x 2, then every 30 minutes x 2, then every 1 hour x 1 after each naloxone dose. Consider transfer to [facility] if patient respiratory parameters hav e not improved after 4 naloxone doses.
Or naloxone (NARCAN) injection 0.4 mgJump to med 0.4 mg, Intramuscular, EVERY 2 MIN PRN, opioid reversal, Starting on Tue12/28/21 at 1337
Administer intramuscular if an intravenous route is not available and notify provider when administered. For unintended sedation or respira tory depression if all of the below criteria are met: ~ respiratory rate LESS than or EQUAL to 8. ~ SaO2 less than 92% and or/end-tidal CO2 is greater than 50. ~ the patient i s receiving an opioid, has unintended sedation assessed as RASS (-4) or (-5) and patient is currently not on mechanical ventilation. RASS s iman (-4) is deep sedation with no respo nse to voice but movement or eye opening to physical stimulation. RASS scale (-5) is unarousable. Patien t Monitoring Once the patient has d emonstrated a response to the naloxone, continue to monitor respiratory rate, depth, oxygen saturation and end-tidal CO2 (if available) every 15 minutes x 2, then every 30 minutes x 2, then every 1 hour x 1 after each naloxone dose. Consider transfer to ICU if patient respiratory parameters have not improved after 4 naloxone doses.
Group 4: ondansetron (ZOFRAN-ODT) ODT tab 4 mgJump to med 4 mg, Oral, EVERY 6 HOURS PRN, nausea, v omiting, Starting on Tue12/28/21 at 1325
This is Step 1 of nausea and vomiting management. If nausea not resolved in 15 minutes, go to Step 2 prochlorperazine (COMPAZINE).&nb sp;With dry hands, peel back foil backing and gently remove tablet. Do not push oral disintegrating tablet through foil backing. Administer immediately on ton concetta and oral disintegrating tablet disso lves in seconds, then swallow with saliva. Liquid not required.
Or ondansetron (ZOFRAN) injection 4 mgJump to med 4 mg, Intravenous, EVERY 6 HOURS PRN, na usea, vomiting, Administer over 2-5 Minutes, Starting on Tue12/28/21 at 1325
Give IF patient unable to tolerate oral medication. This is Step 1 of nausea and vomiting management. If na usea not resolved in 15 minutes, go to Step 2 prochlorperazine (COMPAZINE). Irritant.
Group 5: prochlorperazine (COMPAZINE) injection 5 mgJump to med 5 mg, Intravenous, EVERY 6 HOURS PRN, na usea, vomiting, Administer over 1-2 Minutes, Starting on Tue12/28/21 at 1325
Give IF patient unable to tolerate oral medication. This is Step 2 of nausea and vomiting management. Give if nausea not resolved 15 minutes after giving ondansetron (ZOFRAN). If nausea not resolved in 15-30 minutes, Notify provider.
Or prochlorperazine (COMPAZINE) tablet 5 mgJump to med 5 mg, Oral, EVERY 6 HOURS PRN, vomiting, Starting on Tue12/28/21 at 1325
This is Step 2 of nausea and vomiting management. Give if nausea not resolved 15 minutes after giving ondansetron (ZOFRA N). If nausea not resolved in 15-30 minutes, Notify provider.
Or prochlorperazine (COMPAZINE) suppository 12.5 mgJump to med 12.5 mg, Rectal, EVERY 12 HOURS PRN, roxann sea, vomiting, Starting on 12/28/21 at 1325
This is Step 2 of nausea and vomiting management. Give if nausea not resolved 15 minutes after giving onda nsetron (ZOFRAN). If nausea not res olved in 15-30 minutes, Notify provider.
documented in this encounter Care Teams Infection Control Manager Relationship Specialty Start Date End Date Charlotte Gillespie MD PCP - General Family Medicine 12/09/[address] [address] documented as of this encounter
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
--- OUTSIDE RECORDS SUMMARY | 2022-08-18 09:24 | XMS_ITS | Encounter Summary ---
:1955 Author Organization [facility] Address [address] [place] [address]. [place] [address] Care Team Providers Name Role Phone Charlotte Gillespie MD Primary Care Provider [phone] Reason for Visit Auth/Cert Specialty Diagnoses / [...] and Posterior Repair [address] [place], [place] [address] Phone: Fax: Referral ID Status Reason Start Date Expiration Date Visits Requ ested Visits Authorized [id number] 1 1 Encounter Details Date Type Department Care Team Description 12/28/2021 Surgery [facility] Ria Kim otic Assisted [facility] PeriOp Servic ruddy Berumen MD Laparoscopic Sacral [address] [employer] Colpopexy, Robotic [place], [place] [address] [address] Laparosc opic Abdominal [id number] [address] Enterocele Repair, [place] [address] Cystoscopy, Midurethral [phone] (Wo rk) Sling, and Extensive Lysis of Adhesions Surgery Details Date/Time Status Location OR Service Patient Case Case Traum a Class Class Type Case? 12/28/21 7:30 [facility] Surgery Panel 1 Procedure LRB Anes Op Region Wound Class Commen ts Xi Robotic Assisted Laparoscopic N/A General Pelvis II- Clean Contaminated Sacral Colpopexy, Robotic Laparoscopic Abdominal Enterocele Repair, Cystoscopy, Midurethral Sling, and Extensive Lysis of Adhesions Incision and drainage abdominal N/A General Abdomen II-C lean Contaminated wall cyst Surgeon Surgeon Role Service Panel Ria Kim MD Primary [facility] Gynecology 1 Special Needs # per H&P documented in this encounter Social History Tobacco Use Types Packs/Day Years [...] Sign Reading Time Taken Comments Blood Pressure 143/87 12/28/2021 6:15 AM CDT Pulse 62 12/28/2021 6:15 AM CDT Temperature 36.8 ??C (98.2 ??F) 12/28/2021 6:15 AM CDT Respiratory Rate 16 12/28/2021 6:15 AM CDT Oxygen Saturation 97% 12/28/2021 6:15 AM CDT Inhaled Oxygen Concentration - - [...] call my doctor? Call Dr. Kim call [phone] if you have: (for urgent questions/concerns CELL PHONE [phone]) ?? -Any post-operative questions or concerns ?? [...] a 2nd time before discharging to home. ILIOT Gia Baker PA-C - 12/29/2021 7:29 AM [...] of voiding trial. B) Medical: ??? 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 Umbilical cyst, home Augmentin given. Change gauze pad 2-3 times daily. Gia Baker PA-C ILIOT Tatiana Woody RN - 12/29/2021 6:23 AM [...] PRN and scheduled pain medications given per MAR. Cold also applied. Patient stating adequate relief with current pain regimen. Patient encouraged to callRN if patient starts having increased pain. Patient stated an understanding. Assessment: surgical incisions c/d/i with service dressings intact. PIV site c/d/i with IVF infusingper MAR. Diet: patient tolerating PO intake. Fluids encouraged. [...] CDT OPERATIVE REPORT NAME: Regina Vargas MR#: [id number] : 1955 DATE OF OPERATION: December 28, [...] drainage of abdominal wall cyst 4 cm COPYMAN: ABIGAIL Brito ANESTHESIA: General endotracheal. ESTIMATED BLOOD [...] draped both abdominally and vaginally, and an 18-Urdu Jones catheter was placed to gravity drainage. [...] 15 cm piece of polypropylene mesh (Polyform, [employer]) was attached to the anterior vaginal [...] an adequate dissection had been performed, the Store Vantage Advantage Fit device was selected and loaded. [...] saline- soaked vaginal packing. She had a 16-Urdu Jones catheter present to gravity drainage. Sponge, lap, and needle counts were found to be correct. There were no complications from surgery. Patient was awoken from anesthesia and brought to the recovery room in excellent condition. Ria Kim MD Pharmacy-Admission Medication History - Chris Pickens, [facility] - 12/24/2021 4:14 PM CST Medication reconciliation [...] tablet by mouth daily Yes Reported, Patient STERED NURSE OBSTETRICS documented in this encounter Plan of Treatment [...] RESULT - HIM SCAN 12/24/2021 12:00 AM REGISTERED NURSE OBSTETRICS documented in this encounter Results (ABNORMAL) Hemoglobin (12/29/2021 6:28 AM CDT) athologist Signature Hemoglobin 11.5 (L) 11.7 - 15.7 12/29/2021 [facility] g/dL 6:40 AM CDT Specimen Anatomical Collection Method / Collection Time Recei mariana Time (Source) Location / Volume Laterality Blood STRUCTURE OF RIGHT Venipuncture / 12/29/2021 6:28 12/15 6:37 UPPER LIMB / Unknown AM CDT AM CDT Unknown Ria Kim MD LAB - BLOOD ORDERABLES Performing Organization Address City/State/ZIP [place] [address] Care Lab [address] Lab (1st floor, no room number) [...] and gender (Pam et al., NEJM, DOI: 10.1056/[id number]) Specimen Anatomical Collection Method / Collection Time Recei maraina Time (Source) Location / Volume Laterality Blood STRUCTURE OF RIGHT Venipuncture / 12/28/2021 2:09 03/01/2022 2:14 UPPER LIMB / Unknown PM CDT PM CDT Unknown Ria Kim MD LAB - BLOOD ORDERABLES Performing Organization Address City/State/ZIP [place] [address] Care Lab [address] Lab (1st floor, no room number) Hemoglobin (12/28/2021 7:10 AM CDT) athologist Signature Hemoglobin 13.1 11.7 - 15.7 12/28/2021 [facility] g/dL 7:17 AM CDT Specimen Anatomical Collection Method / Collection Time Recei mariana Time (Source) Location / Volume Laterality Blood STRUCTURE OF LEFT Venipuncture / 12/28/2021 7:10 12/28 7:13 HAND / Unknown Unknown AM CDT AM CDT Ria Kim MD LAB - BLOOD ORDERABLES Performing Organization Address City/State/ZIP [place] [address] Care Lab [address] Lab (1st floor, no room number) LAB RESULT - HIM SCAN (12/24/2021 12:00 AM REGISTERED NURSE OBSTETRICS) Specimen (Source) Anatomical Location Collection Method / Collectio n Time Received Time / Laterality Volume 12/24/2021 Narrative This result has an attachment that is no t available. 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 Hernia of unspecified site of abdominal cavity without mention of obstruction or gangrene Female stress incontinence documented in this encounter Admitting Diagnoses Diagnosis Post-operative state Other postprocedural status documented in this encounter Administered Medications Inactive Administered Medications - up to 3 most recent administrations Medication Order MAR Action Action Date Dose Rate Site acetaminophen (TYLENOL) tablet 325 Given 12/29/2021 6:37 AM CDT 325 mg mg 325 mg, Oral, EVERY 4 HOURS PRN, mild pain, fever, Starting on Tue12/28/21 at 1325, Maximum [...] Given 12/28/2021 8:44 PM CDT 20 mg hemostatic matrix (SURGIFLO) kit Given 12/28/2021 11:54 AM CDT 1 kit PRN, Starting on Tue12/28/21 at 1154, Intra-procedure HYDROmorphone (DILAUDID) injection 0.2 m g 0.2 [...] analgesic side effects. Hold while on IV ASSEMBLER FLUORESCENT LIGHTS or with regular IV opioid dosing. HYDROmorphone (DILAUDID) tablet 4 mg 4 mg, Oral, EVERY 4 HOURS PRN, severe pa in, (pain rating 7-10)., Starting on Tue12/28/21 at 1325, Hold oral PRN dose for analgesic side effects. Notify provider to assess for uncontrolled pain or analgesic side effects . Hold while on IV ASSEMBLER FLUORESCENT LIGHTS or with regular IV opioid dosing. ketorolac [...] Given 12/28/2021 8:17 PM CDT 15 mg lidocaine 1%/EPINEPHrine 1:100,000 with Given 12/28/2021 11:54 A M CDT 12 mLs bupivacaine 0.5% mixed 1:1 60 mL PRN, Starting on Tue12/28/21 at 1154, Intra-procedure naloxone (NARCAN) injection 0.2 mg 0.2 mg, [...] this section may contain times in both REGISTERED NURSE OBSTETRICS and CDT. Scheduled Medication Order 12/27/2021 12/28/2021 12/29/2021 acetaminophen (TYLENOL) tablet 975 mg (COMPLETED) 0715 (Given - Provider: Chaim Reddy RN) 975 mg, Oral, ONCE, On Tue12/28/21 at 07 00, For 1 dose, Give within 60 min of procedure. Hold if patient has taken acetaminophen within 4 hours. Maximum acetaminophen dose from all sources = 75 mg/kg/day not to exceed 4 grams/day., Pre-procedure ceFAZolin Sodium (ANCEF) injection 2 g (COMPLETED) 0800 (Given - Provider: Estrellita Terrazas APRN CRNA)1200 (Given - Provider: Estrellita Terrazas APRN CRNA) Routine, 2 g, Intravenous, PRE-OP/PRE-TN OCEDURE, Starting on Tue12/28/21 at 0643, For 1 dose, Give first dose within 1 hour PRIOR to incision. If patient weight is greater than or equal to 120 kg increa se dose to 3 g., Indications: Perioperative Pharmacoprophyla xis, Pre-procedure DULoxetine (CYMBALTA) DR capsule 20 mg 0835 (Given - Provider: Alondra Vanegas RN) 20 mg, Oral, DAILY, First dose (after last modificatio n) on Tue12/29/21 at 0800 estradiol (ESTRACE) tablet 1 mg 1213 (Given - Provider: Alondra Vanegas RN) 1 mg, Oral, DAILY, First dose on Tue12/29/21 at 1130 famotidine (PEPCID) tablet 20 mg 2044 (Given - P rovider: Marily Beebe RN) 0835 (Given - Provider: Alondra Vanegas RN) 20 mg, Oral, DAILY, First dose on Tue12/28/21 at 2030 ketorolac (TORADOL) injection 15 mg (COMPLETED) 1412 (Given - Provider: Teja Garcia RN)2017 (Given - Provider: Marily Beebe RN) 0156 [...] to attach to NS 100 mL bag 1420 (New Bag - Provider: Teja Garcia RN)2016 (New Bag - Provider: Marily Beebe RN) 0157 (New Bag - Provider: Tatiana [...] mg (CANCELED) 0637 (Given - Provider: Tatiana Woody RN) 325 mg, Oral, EVERY 4 HOURS PRN, mild pa in, fever, Starting on Tue12/28/21 at 1325, Maximum acetaminophen dose from all sources = 75 mg/kg/day not to exceed 4 grams/day. acetaminophen (TYLENOL) tablet 975 mg 112 (Given - Provider: Alondra Vanegas RN) 975 [...] HYDROmorphone (DILAUDID) tablet 2 mg(Linked Group 2) 1923 (Given - Provider: Teja Garcia RN) 2 mg, Oral, EVERY 4 HOURS PRN, other, mo derate pain (pain rating 4-6)., Starting on Tue12/28/21 at 1325, Hold oral PRN dose for analgesic side effects. Notify provider to assess for uncontrolled pain or analgesic side effects. Hold while on IV ASSEMBLER FLUORESCENT LIGHTS or with regular IV opioid dosing. HYDROmorphone (DILAUDID) tablet 4 mg(Linked Group 2) 1923 (See Alternative - Provider: Teja Garcia RN) 4 mg, Oral, EVERY 4 HOURS PRN, severe pa in, (pain rating 7-10)., Starting on Tue12/28/21 at 1325, Hold oral PRN dose for analgesic side effects. Notify provider to assess for uncontrolled pain or analge sic side effects. Hold while on IV ASSEMBLER FLUORESCENT LIGHTS or with regular IV opioid dosing. lidocaine [...] side effects. Hold wh ile on IV ASSEMBLER FLUORESCENT LIGHTS or with regular IV opioid dosing.
Or HYDROmorphone (DILAUDID) tablet 4 mgJump to med 4 mg, Oral, EVERY 4 HOURS PRN, severe pa in, (pain rating 7-10)., Starting on Tue12/28/21 at 1325
Hold oral PRN dose for analgesic side effects. Notify provider to assess for uncontrolled pain o r analgesic side effects. Hold while on IV ASSEMBLER FL[employer]ORESCENT LIGHTS or with regular IV opioid dosing.
Group [...] after each naloxone dose. Consider transfer to [facility] if patient respiratory parameters hav e [...] roxann sea, vomiting, Starting on Tue12/28/21 at 1325
This is Step 2 of nausea and vomiting management. Give if nausea not resolved 15 minutes after giving onda nsetron (ZOFRAN). If nausea not res olved in 15-30 minutes, Notify provider.
documented in this encounter Care Teams Publication Distributor Relationship Specialty Start Date End Date Charlotte Gillespie MD PCP - General Family Medicine 12/09/[address] [address] documented as of this encounter
--- OUTSIDE RECORDS SUMMARY | 2022-08-18 09:24 | XMS_ITS | Encounter Summary ---
:1955 Author Organization [facility] Address [address] [place] [address]. [place] [address] Care Team Providers Name Role Phone Unavailable Primary Care Provider Unavailable Encounter Details Date Type Department Care Team Description 11/30/2021 Orders Only [facility] Ria Kim [facility] for Eris Berumen MD screening for other Services [facility] viral diseases [address] (Primary Dx) [place], [place] [address] [address] [place] [address] [phone] (Wo rk) Social History Tobacco Use Types Packs/Day Years Used Date Smoking Tobacco: Never Assessed Sex Assigned at Date Recorded Not on file documented as of this encounter Plan of Treatment Scheduled Orders Name Type Priority Associated Diagnoses Order S chedule Asymptomatic COVID-19 Lab Routine Encounter for aroldo richard Expected: 11/30/2021 Virus (Coronavirus) by PCR for other mukul l diseases (Approximate), Expires: 2022 documented as of this encounter Visit Diagnoses Diagnosis Encounter for screening for other viral diseases - Primary documented in this encounter
--- OUTSIDE RECORDS SUMMARY | 2022-08-18 09:24 | XMS_ITS | Encounter Summary ---
:1955 Author Organization [facility] Address [address] [place] [address]. [place] [address] Care Team Providers Name Role Phone Charlotte Gillespie MD Primary Care Provider [phone] Encounter Details Date Type Department Care Team Description 12/28/2021 Travel Social History Tobacco Use Types Packs/Day Years [...] / COVID-19? documented as of this encounter Plan of Treatment Not on filedocumented as of this encounter Visit Diagnoses Not on filedocumented in this encounter Care Teams Director Of Fundraising Relationship Specialty Start Date End Date Charlotte Gillespie MD PCP - General Family Medicine 12/09/21 [facility] [address] [place] [address] documented as of this encounter
--- OUTSIDE RECORDS SUMMARY | 2022-08-18 09:24 | XMS_ITS | Encounter Summary ---
:1955 Author Organization [facility] Address [address] [place] [address]. [place] [address] Care Team Providers Name Role Phone Charlotte Gillespie MD Primary Care Provider [phone] Encounter Details Date Type Department Care Team Description 12/18/2021 Travel Social History Tobacco Use Types Packs/Day Years Used Date Smoking Tobacco: Never Smokeless Tobacco: Never Alcohol Use Standard Drinks/Week Comments Yes 0 (1 standard drink = 0.6 oz pure alcoho l) occ Sex Assigned at Date Recorded Not on file COVID-19 Exposure Response Date Recorded In the last month, have you been in contact with No / Unsure 12/18/2021 3:38 PM HOME INSPECTOR someone who was confirmed or suspected to have Coronavirus / COVID-19? documented as of this encounter Plan of Treatment Not on filedocumented as of this encounter Visit Diagnoses Not on filedocumented in this encounter Care Teams Beauty Culture Teacher Relationship Specialty Start Date End Date Charlotte Gillespie MD PCP - General Family Medicine 12/09/21 [facility] [address] [place] [address] documented as of this encounter
--- OUTSIDE RECORDS SUMMARY | 2022-08-18 09:24 | XMS_ITS | Encounter Summary ---
:1955 Author Organization [facility] Address [address] [place] [address]. [place] [address] Care Team Providers Name Role Phone Charlotte Gillespie MD Primary Care Provider [phone] Reason for Visit Auth/Cert Specialty Diagnoses [...] Midurethral Sling and Posterior Repair [address], [place] [address] Phone: Fax: Referral ID Status Reason Start Date Expiration Date Visits Requ ested Visits Authorized [id number] 1 1 Encounter Details Date Type Department Care Team Description 12/28/2021 Anesthesia Event [facility] Buzz Escalona PeriOp Services MD Herb [address] [place] [address] ANESTHESIA [id number] [facility] [address] [place], [place] [address] (Wo rk) Anesthesia Record Procedure Summary Procedure Name Responsible Anesthesia Start Anesthesia Stop Anesthesiologist Time Time Xi Robotic Assisted Feliberto Escalona 12/28/21 0752 12/28/21 1212 Laparoscopic Sacral MD Herb Colpopexy, Robotic Laparoscopic Abdominal Enterocele Repair, Cystoscopy, Midurethral Sling, and Extensive Lysis of Adhesions (Pelvis) Events Date Time Event Comment 12/28/2021 0709 DIPLOMATIC COURIER Ready for Procedure 0752 An Start 0752 AN REASSESS I attest that I have identified and re-evaluated the patient immediately before the induction of anesthesia and I am satisfied that t he anesthetic plan is suitable for the patient's condition and procedure. The f irst vital signs recorded are pre- inducti on. Estrellita Terrazas APRN DIPLOMATIC COURIER 0752 An Start Data 0756 An Induction 0758 An Intubation 0830 AN INCISION 0857 MD Present 0952 MD Present 1032 MD Present 1054 MD Present 1138 MD Present 1200 MD Present 1204 an stop data 1212 An Stop Electronically s igned by Estrellita Terrazas APRN DIPLOMATIC COURIER on Dec 12:12 PM Name Total midazolam 1mg/mL 2 mg fentaNYL (SUBLIMAZE) injection 100 mcg lidocaine 1% 50 mg propofol (DIPRIVAN) injection 10 mg/mL vial 200 mg propofol (DIPRIVAN) 10 mg/mL 706.84 mg rocuronium 10mg/mL 100 mg glycopyrrolate 0.2mg/mL 0.8 mg neostigmine 1mg/mL 4 mg dexamethasone 4mg/mL 8 mg ondansetron 2mg/mL 4 mg ketorolac 30mg/mL 30 mg HYDROmorphone 2 mg ceFAZolin Sodium (ANCEF) injection 2 g 3 g LR PIV #1 1,400 mL Agents Name NO HELIOX O2 N2O Air Exp Sevoflurane Exp Isoflurane Exp Desflurane Exp N2O Ins Sevoflurane Ins Isoflurane Ins Desflurane O2 Auxiliary Blood No blood administrations on file. Lines, Drains, and Airways Type Details Placement Removal Incision/Surgical Site 12/28/21; 1014; 12/28/21 1014 by Bilateral; Abdomen; Krysta Jack RN Glue x 5 incision sites Incision/Surgical Site 12/28/21; 1014; 12/28/21 1014 by Perineum; Suprapubic x Krysta Jack RN 2 incision sites Incision/Surgical Site 12/28/21; 1014; Vagina; 12/28/21 1014 by Vaginal packing, Krysta Jack RN peripad Peripheral IV 12/28/21; 0708; 20 G; 12/28/21 0708 by 12/29/21 1314 by BD; Left, Posterior; Leticia Aquino RN Caliri, Katharine E, Hand; Chlorhexidine; RN None ETT Placement Date: 12/28/21 0758 by 12/28/21 1200 b y 12/28/21; Placement Estrellita Terrazas Frey, Beck y, RN Time: 0758; Mask SPECIAL MACHINE OPERATOR DIPLOMATIC COURIER Ventilation: 2; Induction Type: Intravenous; Ease of Intubation: Easy (head and neck in neutral position throughout.); Technique: Video laryngoscopy; ETT Type: Single, Oral; Tube Size: 7 mm; VL Blade Size: [place] scope 3; Grade View: 1; Adjucts: Stylet; Placement Person: DIPLOMATIC COURIER (right front tooth chipped prior to anesthesia.); Attempts: 1; Depth: 21 cm Gastric Tube 12/28/21; 0810; 12/28/21 0810 by 12/28/21 1200 b y Decompression; 18 fr; Estrellita Terrazas Frey, Be cky, RN Respiratory status SPECIAL MACHINE OPERATOR DIPLOMATIC COURIER unchanged, Aspiration of gastric content; Adhesive Urethral Catheter 12/28/21; 0824; No; 12/28/21 0824 by 12/29/21 1005 by Anesthesia, /GI/SHED BOSS Krysta Jack RN Caliri, Katharine E, Pelvic Procedure; 16 fr RN Packing 12/28/21; 1141; Vagina; 12/28/21 1141 by 2 0900 by Gauze radiopaque Zak Coffman RN Caliri, Kath arine E, vaginal packing; 1; RN 12/29/21; 0900 documented in this encounter Social History Tobacco [...] / COVID-19? documented as of this encounter OR Notes Anesthesia Postprocedure Evaluation - Terrell Terrazas MD - 12/28/2021 2:40 PM CDT Patient: Regina Vargas Procedure: Procedure(s): Xi Robotic Assisted Laparoscopic Sacral Colpopexy, Robotic Laparoscopic Abdominal Enterocele Repair,Cystoscopy, Midurethral Sling, and Extensive Lysis of Adhesions Incision and drainage abdominal wall cyst Anesthesia Type: General Note: Disposition: Admission Postop Pain Control: Uneventful Sign Out: Well controlled pain PONV: No Neuro/Psych: Uneventful Sign Out: Acceptable/Baseline neuro status Airway/Respiratory: Uneventful Sign Out: Acceptable/Baseline resp. status CV/Hemodynamics: Uneventful Sign Out: Acceptable CV status Other NRE: NONE DID A NON-ROUTINE EVENT OCCUR? No Last vitals: Vitals Value Taken Time BP 111/64 12/28/21 1305 Temp 97.8 ??F (36.6 ??C) 12/28/21 1300 Pulse 63 12/28/21 1307 Resp 9 12/28/21 1307 SpO2 94 % 12/28/21 1307 Vitals shown include unvalidated device data. Electronically Signed By: Terrell Terrazas MD December 28, 2021 2:40 PM Anesthesia Preprocedure Evaluation - Feliberto Escalona MD - 12/28/2021 6:19 AM CDT Anesthesia Pre-Procedure Evaluation Patient: Regina Vargas : 1955 Procedure : Procedure(s): Xi Robotic Assisted Laparoscopic Sacral Colpopexy, Robotic Laparoscopic Abdominal Enterocele Repair,Cystoscopy, Possible Midurethral Sling and Posterior Repair Past Medical History: Diagnosis Date ??? Complication of anesthesia itching ??? Other chronic pain Neck ??? Restless leg syndrome ??? Trigeminal neuralgia ??? Vitamin D deficiency Past Surgical History: Procedure Laterality Date ??? BACK SURGERY 2018 C2-C7 fused (4 surgeries, last one 03/2018) ??? BACK SURGERY 2014 L4-5 TLIF (3 surgeries) ??? COLONOSCOPY ??? SHED BOSS SURGERY hysterectomy, blaire oophorectomy, cystocele/retrocele repair ??? ORTHOPEDIC SURGERY Right R hallux rigidus repair ??? ORTHOPEDIC SURGERY Right hammer toe repair ??? ORTHOPEDIC SURGERY Right labral tear right hip joint ??? TONSILLECTOMY Allergies Allergen Reactions ??? Mirtazapine Weight gain ??? Trazodone nightmares ??? Zolpidem nightmares Social History Tobacco Use ??? Smoking status: Never Smoker ??? Smokeless tobacco: Never Used Substance Use Topics ??? Alcohol use: Yes Comment: occ Wt Readings from Last 1 Encounters: 12/28/21 86.2 kg (190 lb 1.6 oz) Anesthesia Evaluation Pt has had prior anesthetic. Type: General. No history of anesthetic complications ROS/MED HX ENT/Pulmonary: - neg pulmonary ROS Neurologic: (+) peripheral neuropathy, - hx of trigeminal neuralgia. Cardiovascular: - neg cardiovascular ROS (+) -----Previous cardiac testing Echo: Date: Results: Stress Test: Date: 06/05 Results: Normal ECG Reviewed: Date: Results: Cath: Date: Results: METS/Exercise Tolerance: Hematologic: - neg hematologic ROS Musculoskeletal: Comment: Multiple spinal fusions (+) arthritis, GI/Hepatic: - neg GI/hepatic ROS Renal/Genitourinary: Comment: Chronic urinary incontinence Endo: - neg endo ROS Psychiatric/Substance Use: (+) psychiatric history anxiety Infectious Disease: - neg infectious disease ROS Malignancy: - neg malignancy ROS Other: - neg other ROS (+) , H/O Chronic Pain, Physical Exam Airway Mallampati: II TM distance: > 3 FB Neck ROM: limited Mouth opening: > 3 cm Respiratory Devices and Support Dental (+) missing Cardiovascular cardiovascular exam normal Rhythm and rate: regular and normal Pulmonary pulmonary exam normal breath sounds clear to auscultation Other findings: EKG Interpretation: OUTSIDE LABS: CBC: No results found for: WBC, HGB, HCT, PLT BMP: No results found for: NA, POTASSIUM, CHLORIDE, CO2, BUN, CR, GLC COAGS: No results found for: PTT, INR, FIBR POC: No results found for: BGM, HCG, HCGS HEPATIC: No results found for: ALBUMIN, PROTTOTAL, ALT, AST, GGT, ALKPHOS, BILITOTAL, BILIDIRECT, GUSTAVO OTHER: No results found for: PH, LACT, A1C, ALLA, PHOS, MAG, LIPASE, AMYLASE, TSH, T4, T3, CRP, SED Anesthesia Plan ASA Status: 2 Anesthesia Type: General. - Airway: ETT Induction: Intravenous. Maintenance: Balanced. Techniques and Equipment: - Airway: Video-Laryngoscope (expect difficulty with limited mobility) Consents Anesthesia Plan(s) and associated risks, benefits, and realistic alternatives discussed. Questions answered and patient/brewery representative(s) expressed understanding. - Discussed: Risks, Benefits and Alternatives for BOTH SEDATION and the PROCEDURE were discussed - Discussed with: Patient - Extended Intubation/Ventilatory Support Discussed: No. - Patient is DNR/DNI Status: No Use of blood products discussed: No . Postoperative Care Pain management: IV analgesics, Oral pain medications, Multi-modal analgesia. 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 Anesthesia Type: General Note: Oropharynx: oropharynx clear of all foreign objects Level of Consciousness: awake Oxygen Supplementation: face mask Independent Airway: airway patency satisfactory and stable Dentition: dentition unchanged Vital Signs Stable: post-procedure vital signs reviewed and stable Report to RN Given: handoff report given Patient transferred to: PACU Handoff Report: Identifed the Patient, Identified the Reponsible Provider, Reviewed the pertinent medical history, Discussed the surgical course, Reviewed Intra-OP anesthesia mangement and issues during anesthesia, Set expectations for post-procedure period and Allowed opportunity for questions and acknowledgement of understanding Vitals: Vitals Value Taken Time BP 99/59 12/28/21 1207 Temp Pulse 82 12/28/21 1210 Resp 12 12/28/21 1210 SpO2 96 % 12/28/21 1210 Vitals shown include unvalidated device data. Electronically Signed By: Estrellita Terrazas APRN DIPLOMATIC COURIER December 28, 2021 12:11 PM documented in this encounter Plan of Treatment Not on filedocumented as of this encounter Visit Diagnoses Not on filedocumented in this encounter Administered Medications Inactive Administered Medications - up to 3 most recent administrations Medication Order MAR Action Action Date Dose Rate Site ceFAZolin Sodium (ANCEF) injection Given 12/28/2021 12:00 PM CDT 1 g 2 g Routine, 2 g, Intravenous, PRE-OP/PRE-PROCEDURE, Starting on Tue12/28/21 at 0643, For 1 dose, Give first dose within 1 hour PRIOR to incision. If patient weight is greater than or equal to 120 kg increase dose to 3 g., Indications: Perioperative Pharmacoprophylaxis, Pre-procedure Given 12/28/2021 8:00 AM CDT 2 g dexamethasone (DECADRON) injection Given 12/28/2021 7:56 AM CDT 8 mg Intravenous, PRN, Administer over 1 Minutes, Starting on Tue12/28/21 at 0756, Anesthesia Intra-op fentaNYL (PF) (SUBLIMAZE) injection Given 12/28/2021 7:56 AM CDT 100 mcg Intravenous, PRN, Administer over 3-5 Minutes, Starting on Tue12/28/21 at 0756, Anesthesia Intra-op glycopyrrolate (ROBINUL) injection Given 12/28/2021 11:50 AM CDT 0.6 mg Intravenous, PRN, Administer over 1-2 Minutes, Starting on Tue12/28/21 at 0756, Anesthesia Intra-op Given 12/28/2021 7:56 AM CDT 0.2 mg HYDROmorphone (DILAUDID) injection Given 12/28/2021 11:00 AM CDT 0.5 mg Intravenous, PRN, Starting on Tue12/28/21 at 0756, Anesthesia Intra-op Given 12/28/2021 9:03 AM CDT 0.5 mg Given 12/28/2021 7:56 AM CDT 1 mg ketorolac (TORADOL) injection Given 12/28/2021 7:56 AM CDT 30 mg Intravenous, PRN, Administer over 2 Minutes, Starting on Tue12/28/21 at 0756, Anesthesia Intra-op lactated ringers infusion New Bag 12/28/2021 10:15 AM CDT Intravenous, CONTINUOUS PRN, Anesthesia Intra-op, Starting on Tue12/28/21 at 0752, Until Tue12/28/21 at 1212 New Bag 12/28/2021 7:52 AM CDT lidocaine 1 % injection Given 12/28/2021 7:56 AM CDT 50 mg Other, PRN, Starting on Tue12/28/21 at 0756, Anesthesia Intra-op midazolam (VERSED) injection Given 12/28/2021 7:53 AM CDT 2 mg Intravenous, Administer over 2 Minutes, PRN, Starting on Tue12/28/21 at 0753, Anesthesia Intra-op neostigmine (PROSTIGMINE) injection Given 12/28/2021 11:50 AM CDT 4 mg Intravenous, PRN, Starting on Tue12/28/21 at 1150, Anesthesia Intra-op ondansetron (ZOFRAN) injection Given 12/28/2021 7:56 AM CDT 4 mg Intravenous, PRN, Administer over 2-5 Minutes, Starting on Tue12/28/21 at 0756, Anesthesia Intra-op propofol (DIPRIVAN) injection 10 mg/mL v ial Given 12/28/2021 7:56 AM CDT 200 mg Intravenous, PRN, Starting on Tue12/28/21 at 0756, Anesthesia Intra-op propofol (DIPRIVAN) injection New Bag 12/28/2021 7:56 AM 50 mc g/kg/min 25.86 mL/hr 10 mg/mL vial CDT Intravenous, CONTINUOUS PRN, Starting on Tue12/28/21 at 0756, Anesthesia Intra-op rocuronium injection Given 12/28/2021 10:07 AM CDT 20 mg Intravenous, PRN, Starting on Tue12/28/21 at 0756, Anesthesia Intra-op Given 12/28/2021 9:02 AM CDT 10 mg Given 12/28/2021 8:30 AM CDT 20 mg documented in this encounter Care Teams Data Warehouse Specialist Relationship Specialty Start Date End Date Charlotte Gillespie MD PCP - General Family Medicine 12/09/[address] [address] documented as of this encounter
[2022-08-18 13:06] LABS: Vitamin D 25 Hydroxy* 35 ng/mL (30-80)
== END 2022-08-18 09:21 | disposition home or self-care (01) ==
LOC: NFLDREF 09:22
PROVIDERS: PCP Family Medicine; Visit Provider Family Medicine
DX: Z00.00 Encounter for general adult medical examination without abnormal findings (principal); E78.5 Hyperlipidemia, unspecified; R73.03 Prediabetes; R73.01 Impaired fasting glucose; Z79.890 Hormone replacement therapy; Z86.39 Personal history of other endocrine, nutritional and metabolic disease
CPT/HCPCS: 82306

== ENCOUNTER 2022-09-01 14:50 | Outpatient (CLI) | payer MEDICARE, BC, SELFPAY ==
--- OUTSIDE RECORDS SUMMARY | 2022-09-01 14:53 | XMS_ITS | Encounter Summary ---
:1955 Author Organization [facility] Address [address] [place] [address]. [place] [address] Care Team Providers Name Role Phone Unavailable Primary Care Provider Unavailable Encounter Details Date Type Department Care Team Description 11/30/2021 Orders Only [facility] Ria [facility] Eris Berumen MD screening for other Services COMMUNICATIONS DIRECTOR SPECIALISTS viral diseases [address] (Primary Dx) [place], [place] [address] [address] [address] [place] [address] [phone] (Wo rk) Social History Tobacco Use Types [...]
--- OUTSIDE RECORDS SUMMARY | 2022-09-01 14:53 | XMS_ITS | Encounter Summary ---
:1955 Author Organization [facility] Address [address] [place] [address]. [place] [address] Care Team Providers Name Role Phone Charlotte Gillespie MD Primary Care Provider [phone] Encounter Details Date Type Department Care Team [...] on filedocumented in this encounter Care Teams Service Dismantler Relationship Specialty Start Date End Date Chalrotte Gillespie MD PCP - General Family Medicine 12/09/21 [facility] [address] [place] [address] documented as of this encounter
--- OUTSIDE RECORDS SUMMARY | 2022-09-01 14:53 | XMS_ITS | Encounter Summary ---
:1955 Author Organization [facility] Address [address] [place] [address]. [place] [address] Care Team Providers Name Role Phone Charlotte Gillespie MD Primary Care Provider [phone] Reason for Visit Auth/Cert Specialty Diagnoses / [...] and Posterior Repair [address] [place], [place] [address] Phone: Fax: Referral ID Status Reason Start Date Expiration Date Visits Requ ested Visits Authorized [id number] 1 1 Encounter Details Date Type Department Care Team Description 12/28/2021 - Hospital Encounter [facility] Ria Kim Post-operative 12/29/2021 [facility] Pediatric MD [place] [facility] (Primary Dx) [address] GOVERNOR ASSEMBLER [employer] [place], [place] SPECIALISTS [address] [address] [facility] [phone] [address] [facility] [address] [place] [address] Social History Tobacco Use Types Packs/Day Years [...] call my doctor? Call Dr. Kim call [phone] if you have: (for urgent questions/concerns CELL PHONE [phone]) ?? -Any post-operative questions or concerns ?? [...] of voiding trial. B) Medical: ??? continue CAR BODY DESIGNER home medications ??? Umbilical cyst, home Augmentin [...] CDT OPERATIVE REPORT NAME: Regina Vargas MR#: [id number] : 1955 DATE OF OPERATION: December 28, [...] drainage of abdominal wall cyst 4 cm AUTO APPRAISER: ABIGAIL Brito ANESTHESIA: General endotracheal. ESTIMATED BLOOD [...] draped both abdominally and vaginally, and an 18-Slovak Jones catheter was placed to gravity drainage. [...] 15 cm piece of polypropylene mesh (Polyform, [employer]) was attached to the anterior vaginal [...] an adequate dissection had been performed, the Marvel Advantage Fit device was selected and loaded. [...] saline- soaked vaginal packing. She had a 16-Slovak Jones catheter present to gravity drainage. Sponge, [...] tablet by mouth daily Yes Reported, Patient VERY ANALYST documented in this encounter Plan of Treatment [...] RESULT - HIM SCAN 12/24/2021 12:00 AM RECOVERY ANALYST documented in this encounter Results (ABNORMAL) Hemoglobin [...] Address City/State/ZIP Code [place] [address] Care Lab [address] Lab (1st floor, no room number) [...] and gender (Pam et al., NEJM, DOI: 10.1056/[id number]) Specimen Anatomical Collection Method / Collection Time Recei mariana Time (Source) Location / Volume Laterality Blood STRUCTURE OF RIGHT Venipuncture / 12/28/2021 2:09 03/01/2022 2:14 UPPER LIMB / Unknown PM CDT PM CDT Unknown Ria Kim MD LAB - BLOOD ORDERABLES Performing Organization Address City/State/ZIP Code [place] [address] Care Lab [address] Lab (1st floor, no room number) [...] Address City/State/ZIP Code [place] [address] Care Lab [address] Lab (1st floor, no room number) LAB RESULT - HIM SCAN (12/24/2021 12:00 AM RECOVERY ANALYST) Specimen (Source) Anatomical Location Collection Method / [...] analgesic side effects. Hold while on IV CABLE PLACER or with regular IV opioid dosing. HYDROmorphone (DILAUDID) tablet 4 mg 4 mg, Oral, EVERY 4 HOURS PRN, severe pa in (7-10), (pain rating 7-10)., Starting on Tue12/28/21 at 1325, Hold oral PRN dose for analgesic side effects. Notify provider to assess for uncontrolled pain or analg esic side effects. Hold while on IV CABLE PLACER or with regular IV opioid dosing. ketorolac [...] Step 1 of nausea and vomiting cody mcclain. If nausea not resolved in 15 minutes, [...] this section may contain times in both RECOVERY ANALYST and CDT. Scheduled Medication Order 12/27/2021 12/28/2021 [...] 0800 (Given - Provider: Estrellita Terrazas APRN HEALTH INFORMATION ADMINISTRATOR)1200 (Given - Provider: Estrellita Terrazas APRN CRNA) Routine, 2 g, Intravenous, PRE-OP/PRE-VT OCEDURE, Starting on Tue12/28/21 at 0643, For [...] at 1130 famotidine (PEPCID) tablet 20 mg 2043 (Given - P rovider: Marily Beebe RN) 0835 (Given - Provider: Alondra Vanegas RN) 20 mg, Oral, DAILY, First dose on Tue12/28/21 at 2030 ketorolac (TORADOL) injection 15 mg (COMPLETED) 141 (Given - Provider: Teja Garcia RN)2016 (Given [...] (CANCELED) 0637 (Given - Provider: Tatiana Woody, ISAURO) 325 mg, Oral, EVERY 4 HOURS PRN, mild pa in, fever, Starting on Tue12/28/21 at 1325, Maximum acetaminophen dose from all sources = 75 mg/kg/day not to exceed 4 grams/day. acetaminophen (TYLENOL) tablet 975 mg 1127 (Given - Provider: Alondra Vanegas, ISAURO) 975 mg, Oral, EVERY 6 HOURS PRN, [...] Group 2) 1923 (Given - Provider: Teja Garcia, ISAURO) 2 mg, Oral, EVERY 4 HOURS PRN, other, mo derate pain (pain rating 4-6)., Starting on Tue12/28/21 at 1325, Hold oral PRN dose for analgesic side effects. Notify provider to assess for uncontrolled pain or analgesic side effects. Hold while on IV CABLE PLACER or with regular IV opioid dosing. HYDROmorphone (DILAUDID) tablet 4 mg(Linked Group 2) 1923 (See Alternative - Provider: Teja Garcia RN) 4 mg, Oral, EVERY 4 HOURS PRN, severe pa in, (pain rating 7-10)., Starting on Tue12/28/21 at 1325, Hold oral PRN dose for analgesic side effects. Notify provider to assess for uncontrolled pain or analge sic side effects. Hold while on IV CABLE PLACER or with regular IV opioid dosing. lidocaine [...] side effects. Hold wh ile on IV CABLE PLACER or with regular IV opioid dosing.
Or HYDROmorphone (DILAUDID) tablet 4 mgJump to med 4 mg, Oral, EVERY 4 HOURS PRN, severe pa in, (pain rating 7-10)., Starting on Tue12/28/21 at 1325
Hold oral PRN dose for analgesic side effects. Notify provider to assess for uncontrolled pain o r analgesic side effects. Hold while on IV CABLE PLACER or with regular IV opioid dosing.
Group [...] after each naloxone dose. Consider transfer to [facility] if patient respiratory parameters hav e [...] provider.
documented in this encounter Care Teams Credit And Collections Representative Relationship Specialty Start Date End Date Charlotte Gillespie MD PCP - General Family Medicine 12/09/21 [place] [address] documented as of this encounter
--- OUTSIDE RECORDS SUMMARY | 2022-09-01 14:53 | XMS_ITS | Encounter Summary ---
:1955 Author Organization [place] Address [address] [place] [address]. [place] [address] Care Team Providers Name Role Phone Charlotte Gillespie MD Primary Care Provider [phone] Reason for Visit Auth/Cert Specialty Diagnoses [...] Midurethral Sling and Posterior Repair [address] [place], [place] [address] Phone: Fax: Referral ID Status Reason Start Date Expiration Date Visits Requ ested Visits Authorized [id number] 1 1 Encounter Details Date Type Department Care Team Description 12/28/2021 Anesthesia Event [facility] Buzz Escalona PeriOp Services MD Herb [address] [place] [address] ANESTHESIA [id number] [facility] [address] [place], [place] [address] (Wo rk) Anesthesia Record Procedure Summary Procedure Name Responsible Anesthesia Start Anesthesia Stop Anesthesiologist Time Time Xi Robotic Assisted Feliberto Escalona 12/28/21 0752 12/28/21 1212 Laparoscopic Sacral MD Herb Colpopexy, Robotic Laparoscopic Abdominal Enterocele Repair, Cystoscopy, Midurethral Sling, and Extensive Lysis of Adhesions (Pelvis) Events Date Time Event Comment 12/28/2021 0709 SOLE BLACKER Ready for Procedure 0752 An Start 0752 AN REASSESS I attest that I have identified and re-evaluated the patient immediately before the induction of anesthesia and I am satisfied that t he anesthetic plan is suitable for the patient's condition and procedure. The f irst vital signs recorded are pre- inducti on. Estrellita Terrazas APRN SOLE BLACKER 0752 An Start Data 0756 An Induction 0758 An Intubation 0830 AN INCISION 0857 MD Present 0952 MD Present 1032 MD Present 1054 MD Present 1138 MD Present 1200 MD Present 1204 an stop data 1212 An Stop Electronically s igned by Estrellita Terrazas APRN SOLE BLACKER on Dec 12:12 PM Name Total midazolam [...] Frey, Beck y, RN Time: 0758; Mask TRACE EVIDENCE TECHNICIAN SOLE BLACKER Ventilation: 2; Induction Type: Intravenous; Ease of Intubation: Easy (head and neck in neutral position throughout.); Technique: Video laryngoscopy; ETT Type: Single, Oral; Tube Size: 7 mm; VL Blade Size: Brandon scope 3; Grade View: 1; Adjucts: Stylet; Placement Person: SOLE BLACKER (right front tooth chipped prior to anesthesia.); Attempts: 1; Depth: 21 cm Gastric Tube 12/28/21; 0810; 12/28/21 0810 by 12/28/21 1200 b y Decompression; 18 fr; Estrellita Terrazas Frey, Be cky, RN Respiratory status TRACE EVIDENCE TECHNICIAN SOLE BLACKER unchanged, Aspiration of gastric content; Adhesive Urethral Catheter 12/28/21; 0824; No; 12/28/21 0824 by 12/29/21 1005 by Anesthesia, /GI/LOAN ASSISTANT Krysta Jack RN Caliri, Katharine E, Pelvic [...] L4-5 TLIF (3 surgeries) ??? COLONOSCOPY ??? LOAN ASSISTANT SURGERY hysterectomy, blaire oophorectomy, cystocele/retrocele repair ??? [...] and realistic alternatives discussed. Questions answered and patient/customer contact representative(s) expressed understanding. - Discussed: Risks, Benefits [...] Care Transfer Note - Estrellita Terrazas APRN SOLE BLACKER - 12/28/2021 12:11 PM CDT Patient: Regina [...] data. Electronically Signed By: Estrellita Terrazas APRN SOLE BLACKER December 28, 2021 12:11 PM documented in [...] mg documented in this encounter Care Teams Dressmaker Helper Relationship Specialty Start Date End Date Charlotte Gillespie MD PCP - General Family Medicine 12/09/[address] [address] documented as of this encounter
--- OUTSIDE RECORDS SUMMARY | 2022-09-01 14:53 | XMS_ITS | Encounter Summary ---
:1955 Author Organization [place] Address [address] [place] [address]. [place] [address] Care Team Providers Name Role Phone Charlotte Gillespie MD Primary Care Provider [phone] Reason for Visit Auth/Cert Specialty Diagnoses [...] and Posterior Repair [address] [place], [place] [address] Phone: Fax: Referral ID Status Reason Start Date Expiration Date Visits Requ ested Visits Authorized [id number] 1 1 Encounter Details Date Type Department Care Team Description 12/28/2021 Surgery [facility] Ria Kim otic Assisted [facility] PeriOp Servic ruddy Berumen MD Laparoscopic Sacral [address] [employer] [facility] Colpopexy, Robotic [place], [place] [address] HOMERO Johnston Laparosc opic Abdominal [id number] ANTHONY 200 Enterocele Repair, ALEXIS ZUÑIGA [address] Cystoscopy, Midurethral [phone] (Wo rk) Sling, and Extensive Lysis of Adhesions Surgery Details Date/Time Status Location OR Service Patient Case Case Traum a Class Class Type Case? 12/28/21 7:30 [facility] Surgery Panel 1 Procedure LRB Anes Op Region Wound Class Commen ts Xi Robotic Assisted Laparoscopic N/A General Pelvis II- Clean Contaminated Sacral Colpopexy, Robotic Laparoscopic Abdominal Enterocele Repair, Cystoscopy, Midurethral Sling, and Extensive Lysis of Adhesions Incision and drainage abdominal N/A General Abdomen II-C lean Contaminated wall cyst Surgeon Surgeon Role Service Panel Ria Kim MD Primary [facility] Gynecology 1 Special Needs # per H&P [...] call my doctor? Call Dr. Kim call [phone] if you have: (for urgent questions/concerns CELL PHONE [phone]) ?? -Any post-operative questions or concerns ?? [...] of voiding trial. B) Medical: ??? continue BLENDER home medications ??? Umbilical cyst, home Augmentin [...] CDT OPERATIVE REPORT NAME: Regina Vargas MR#: [id number] : 1955 DATE OF OPERATION: December 28, [...] drainage of abdominal wall cyst 4 cm MOBILE DISC JOCKEY: ABIGAIL Brito ANESTHESIA: General endotracheal. ESTIMATED BLOOD [...] draped both abdominally and vaginally, and an 18-Italian Jones catheter was placed to gravity drainage. [...] 15 cm piece of polypropylene mesh (Polyform, [employer]) was attached to the anterior vaginal [...] an adequate dissection had been performed, the Glyde Advantage Fit device was selected and loaded. [...] saline- soaked vaginal packing. She had a 16-Italian Jones catheter present to gravity drainage. Sponge, lap, and needle counts were found to be correct. There were no complications from surgery. Patient was awoken from anesthesia and brought to the recovery room in excellent condition. Ria Kim MD Pharmacy-Admission Medication History - Chris Pickens, [facility] - 12/24/2021 4:14 PM CST Medication reconciliation [...] tablet by mouth daily Yes Reported, Patient ROUTER OPERATOR documented in this encounter Plan of Treatment [...] RESULT - HIM SCAN 12/24/2021 12:00 AM HAND ROUTER OPERATOR documented in this encounter Results (ABNORMAL) Hemoglobin (12/29/2021 6:28 AM CDT) athologist Signature Hemoglobin 11.5 (L) 11.7 - 15.7 12/29/2021 [facility] g/dL 6:40 AM CDT Specimen Anatomical Collection Method / Collection Time Recei mariana Time (Source) Location / Volume Laterality Blood STRUCTURE OF RIGHT Venipuncture / 12/29/2021 6:28 12/15 6:37 UPPER LIMB / Unknown AM CDT AM CDT Unknown iRa Kim MD LAB - BLOOD ORDERABLES Performing Organization Address City/State/ZIP Code [place] [address] Care Lab [address] Lab (1st floor, no room number) [...] and gender (Pam et al., NEJM, DOI: 10.1056/[id number]) Specimen Anatomical Collection Method / Collection Time Recei mariana Time (Source) Location / Volume Laterality Blood STRUCTURE OF RIGHT Venipuncture / 12/28/2021 2:09 03/01/2022 2:14 UPPER LIMB / Unknown PM CDT PM CDT Unknown Ria Kim MD LAB - BLOOD ORDERABLES Performing Organization Address City/State/ZIP Code [place] [address] Care Lab [address] Lab (1st floor, no room number) [...] Address City/State/ZIP Code [place] [address] Care Lab [address] Lab (1st floor, no room number) LAB RESULT - HIM SCAN (12/24/2021 12:00 AM HAND ROUTER OPERATOR) Specimen (Source) Anatomical Location Collection Method / [...] analgesic side effects. Hold while on IV VEGETABLE THINNER or with regular IV opioid dosing. HYDROmorphone (DILAUDID) tablet 4 mg 4 mg, Oral, EVERY 4 HOURS PRN, severe pa in (7-10), (pain rating 7-10)., Starting on Tue12/28/21 at 1325, Hold oral PRN dose for analgesic side effects. Notify provider to assess for uncontrolled pain or analg esic side effects. Hold while on IV VEGETABLE THINNER or with regular IV opioid dosing. ketorolac [...] this section may contain times in both HAND ROUTER OPERATOR and CDT. Scheduled Medication Order 12/27/2021 12/28/2021 [...] Terrazas APRN CRNA) Routine, 2 g, Intravenous, PRE-OP/PRE-VA OCEDURE, Starting on Tue12/28/21 at 0643, For [...] 500 mg 2043 (Given - Provider: Marily Beebe, ISAURO) 500 mg, Oral, 3 TIMES DAILY PRN, heartburn, Starting on 12/28 at 202 hemostatic matrix (SURGIFLO) kit (CANCELED) 1154 (Given [...] analgesic side effects. Hold while on IV VEGETABLE THINNER or with regular IV opioid dosing. HYDROmorphone (DILAUDID) tablet 4 mg(Linked Group 2) 1923 (See Alternative - Provider: Teja Garcia RN) 4 mg, Oral, EVERY 4 HOURS PRN, severe pa in, (pain rating 7-10)., Starting on Tue12/28/21 at 1325, Hold oral PRN dose for analgesic side effects. Notify provider to assess for uncontrolled pain or analge sic side effects. Hold while on IV VEGETABLE THINNER or with regular IV opioid dosing. lidocaine [...] side effects. Hold wh ile on IV VEGETABLE THINNER or with regular IV opioid dosing.
Or HYDROmorphone (DILAUDID) tablet 4 mgJump to med 4 mg, Oral, EVERY 4 HOURS PRN, severe pa in, (pain rating 7-10)., Starting on Tue12/28/21 at 1325
Hold oral PRN dose for analgesic side effects. Notify provider to assess for uncontrolled pain o r analgesic side effects. Hold while on IV VEGETABLE THINNER or with regular IV opioid dosing.
Group [...] after each naloxone dose. Consider transfer to [facility] if patient respiratory parameters hav e [...] provider.
documented in this encounter Care Teams Communications Clerk Relationship Specialty Start Date End Date Charlotte Gillespie MD PCP - General Family Medicine 12/09/[address] [address] documented as of this encounter
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
== END 2022-09-01 14:51 | disposition home or self-care (01) ==
LOC: RAD 14:52
PROVIDERS: PCP Family Medicine; Visit Provider Family Medicine
DX: Z13.820 Encounter for screening for osteoporosis (principal); Z78.0 Asymptomatic menopausal state
CPT/HCPCS: 77080

== ENCOUNTER 2022-11-11 12:46 | Outpatient (CLI) | payer OTHER, SELFPAY ==
--- NOTE | 2022-11-11 13:00 | CRLHL7_ITS ---
For Patients: As a result of the Cures Act, medical imaging exams and procedure reports are released immediately into your electronic medical record. You may view this report before your referring provider. If you have questions, please contact your health care provider. BILATERAL SCREENING MAMMOGRAM WITH COMPUTER-AIDED DETECTION AND TOMOSYNTHESIS TECHNIQUE: CC and MLO views were obtained. These mammographic images have been obtained using full-field digital technique. These mammographic images were interpreted with the benefit of computer-aided detection. Breast tomosynthesis was used in this interpretation. COMPARISON FILM: 08/05/21, 07/07/20, 12/14/18. FINDINGS: The breasts are heterogeneously dense, which may obscure small masses. IMPRESSION: There is no radiographic evidence for malignancy. ASSESSMENT: BI-RADS Category 1: Negative RECOMMENDATION: Routine screening mammogram in 1 year. A lay language report of this examination will be provided to the patient. CHOCO VO M.D. Diagnostic/Nuclear Medicine Radiologist [email or web address] Transcribed: 3:[address]/Dictated by: Choco Vo MD @ 11/12/2022 8:49:00 AM (Electronically Signed)
== END 2022-11-11 12:47 | disposition home or self-care (01) ==
PROVIDERS: PCP Family Medicine; Visit Provider Family Medicine
DX: Z12.31 Encounter for screening mammogram for malignant neoplasm of breast; R92.2 Inconclusive mammogram
CPT/HCPCS: 77063; 77067

== ENCOUNTER 2022-12-06 10:17 | Outpatient (CLI) | payer OTHER, SELFPAY ==
[2022-12-06 12:09] LABS: Chloride* 105 mmol/L (96-114); Potassium* 4.3 mmol/L (3.6-5.1); Sodium* 138 mmol/L (135-149)
[2022-12-06 12:12] LABS: Blood Urea Nitrogen* 15 mg/dL (7-30); Carbon Dioxide* 27 mmol/L (20-32); Creatinine* 0.6 mg/dL (0.5-1.5); Estimated Glomerular Filt Rate 98 ml/min
[2022-12-06 12:13] LABS: Calcium* 9.3 mg/dL (8.4-10.6); Glucose* 108 mg/dL (60-115)
== END 2022-12-06 10:18 | disposition home or self-care (01) ==
LOC: NFLDUCREF 10:17
PROVIDERS: PCP Family Medicine; Visit Provider Family Medicine
DX: I10 Essential (primary) hypertension (principal)
CPT/HCPCS: 80048

== ENCOUNTER 2023-02-14 07:47 | Outpatient (CLI) | payer OTHER, SELFPAY ==
--- NOTE | 2023-02-14 08:15 | CRLHL7_ITS ---
For Patients: As a result of the Century Cures Act, medical imaging exams and procedure reports are released immediately into your electronic medical record. You may view this report before your referring provider. If you have questions, please contact your health care provider. Indication: Trigeminal neuralgia Technique: Noncontrast sagittal T1, axial FLAIR, T2 turbo spine echo, and diffusion weighted images. Supplemental post contrast T1 weighted axial and coronal sequences are provided after administration of 15 mL Dotarem gadolinium-based IV contrast. Comparison: 01/07/2019 MRI Findings: No evidence of diffusion restriction to suggest acute ischemia. No mass or mass effect. No midline shift. No hydrocephalus. No suspicious extra-axial collection or acute intracranial hemorrhage. Incidental lipoma along the right anterior cerebral falx. Multiple scattered foci of T2/FLAIR signal hyperintensity are present in the supratentorial white matter that are nonspecific but typical for chronic small vessel ischemic changes. Expected intracranial vascular flow voids are preserved. New moderate left mastoid fluid. The right mastoid air cells are clear. The paranasal sinuses demonstrate minimal mucosal thickening along the floors of the maxillary antrum. The orbits are unremarkable. Impression: 1. No acute intracranial abnormality. 2. Moderate supratentorial FLAIR signal abnormalities that are nonspecific but typical for chronic small vessel ischemic change. 3. No pathologic enhancement. 4. Unremarkable internal auditory canals and cerebellopontine angles. New moderate fluid in left mastoid air cells. Dictated by Benny Chung MD @ 02/14/2023 12:56:51 PM (Electronically Signed)
== END 2023-02-14 07:48 | disposition home or self-care (01) ==
PROVIDERS: PCP Family Medicine; Visit Provider Psychiatry & Neurology Neurology
DX: G50.0 Trigeminal neuralgia (principal)
CPT/HCPCS: 70553; A9575

== ENCOUNTER 2023-06-22 11:25 | Outpatient (CLI) | payer OTHER, SELFPAY ==
--- OUTSIDE RECORDS SUMMARY | 2023-06-22 11:29 | XMS_ITS | Continuity of Care Document ---
Author Name Unknown Organization [facility] Address [address] [place] [address] Phone Care Team Providers Care Supervisor Telephone Answering Service Name Role Phone Naeem Virk Unavailable Unavaila ble Allergies, Adverse Reactions, Alerts Substance Reaction Status Criticality No Known Allergies Active No Inform ation Medications Medication Instructions Dosage Effective Dates (start - stop) Status Comments gabapentin 300 mg capsule Take 1 capsule by Oral route four times every day. - Active ESTRACE (unknown strength) Not Available - Active Procedures Procedure Date Postop Followup Visit X-Ray Exam Lower Spine 2-3 Views 2015 Postop Followup Visit X-Ray Exam Lower Spine 2-3 Views 2015 Arthdsis Post/Posterolatrl/Postinterbody Lumbar Remove Intraspinal Lesion, Lumbar Remove Intraspinal Lesion, Lumbar Insert Spine Fixation, Posterior 2014 Apply Spinal Prosthetic Device 15 Autograft, Spine Surgery, Local 015 Allograft, Spine Surg, Morselized Pa Arthdsis Post/Posterolatrl/Postinterb sreekanth Lumbar Remove Intraspinal Lesion, Lumbar Remove Intraspinal Lesion, Lumbar Pa Assist Insert Spine Fixation, Posteri or Pa Assist Apply Spinal Prosthetic Device Office/Outpatient Visit,[facility], [facility] [place]-Ray Exam Lwr Spine, Min 4 Views Advance Directives Directive Yes / No Effective Date File Name No Information Encounters Encounter Description Practice Location Reason(s) For Visit Diagnoses Date Provider Providers Copied on Encounter [facility], [address], [place], [place], [id number] , [place] tel:[phone] [facility] No Information 7 Giang Naeem. [facility], [address], [place], [address], [place]. tel:[phone] [facility], [address], [place], [id number] , [place] tel:[phone] [facility] Arthrodesis statusEncount er for other specified surgical aftercare 6 Giang Naeem. [facility], [address], [place], [address], [place]. tel:[phone] Referring Provider: Chele Bowman, [address], [address]. tel:[phone] [facility], [address], [place], [place], [id number] , [place] [phone] [facility] Arthrodesis statusEncount er for other specified surgical aftercare 6 Giang Naeem. [facility], [address], [place], [address], [place]. tel:[phone] Referring Provider: Chele Bowman [address], [address]. tel:[phone] [facility], [address], [place], [id number] , [place] tel:[phone] [facility] No Information 6 Transfeldt Ensor. [facility], [address], [place], [place], [id number], [place]. [phone] [facility], [address], [place], [id number] , tel:[phone] [facility] No Information 5 Transfeldt Ensor. [facility] [place], [address] [place] [address], [address], [id number], [place]. tel:[phone] Referring Provider: Chele Bowman, [address], [address]. tel:[phone] [facility], [address], [place], [place], [id number] , [place] tel:[phone] [facility] Spinal stenosis, lumbar regionSpondyl olisthesis, lumbar region 5 Padmaja Hartley. [address], [place], [address], [place]. tel:[phone] Referring Provider: Klaus Herndon, [facility] [address], [address], [address]. tel:[phone] Office/Outpa tient Visit,[facility], [facility], [address], [place], [place], [id number] , [place] tel:[phone] [facility] Spinal stenosis, lumbar regionSpondyl olisthesis, lumbar region 5 Transfeldt Ensor. [facility] [place], [address] [place] [address], [address], [id number], [place]. tel:[phone] Referring Provider: Chele Bowman, [address], [address]. tel:[phone] Family History Family Member Type Diagnosis Age At Onset Problem (finding) Problem (finding) Problem (finding) Problem (finding) Problem (finding) Problem (finding) Problem (finding) Payers Payer name Insurance type Covered democrat ID Authoriza tion(s) No Information Social History Type Description Quantity Date Captured Comments Sex Female Smoking Status No Information Chief Complaint And Reason For Visit No Information Reason For Referral Reason For Referral No Information Plan Of Treatment Date Type Action Status Future Order: Radiology Order AP Lateral Lumbar (APLatLumb), Ordered on: Ordered Future Order: Radiology Order AP Lateral Lumbar (APLatLumb), Ordered on: Ordered Future Order: Radiology Order Joan mbosacral Min. 4 Views ([id number]), Ordered on: Ordered History Of Present Illness Encounter Date Complaint History Of Prese nt Illness No Information Functional Status Date Functional Assessmen t No Information Instructions Date Instruction Additional Infor mation No Information Assessments Type Assessment Date No Information Patient Care Teams Name Effective Dates (start - stop) Status Members No Information
== END 2023-06-22 11:26 | disposition home or self-care (01) ==
PROVIDERS: PCP Family Medicine; Visit Provider Family Medicine
DX: Z01.818 Encounter for other preprocedural examination (principal); I10 Essential (primary) hypertension; R73.03 Prediabetes; E78.5 Hyperlipidemia, unspecified
CPT/HCPCS: 80048; 85025

== ENCOUNTER 2023-11-04 08:33 | Outpatient (CLI) | payer OTHER, SELFPAY ==
--- OUTSIDE RECORDS SUMMARY | 2023-11-04 08:36 | XMS_ITS | Continuity of Care Document ---
Author Name Unknown Organization [facility] Address [address] [place] [address] Phone Care Team Providers Care Room Service Manager Name Role Phone Naeem Virk Unavailable Unavaila [...] Pa Assist Apply Spinal Prosthetic Device Office/Outpatient Visit,[facility] [place] 2014 X-Ray Exam Lwr Spine, Min 4 Views Advance Directives Directive Yes / No Effective Date File Name No Information Encounters Encounter Description Practice Location Reason(s) For Visit Diagnoses Date Provider Providers Copied on Encounter [facility], [address], [place], [place], [id number] , [place] tel:[phone] [facility] No Information 7 Giang Naeem. [facility], [address], [place], [address], [place]. tel:[phone] [facility], [address], [place], [id number] , [place] tel:[phone] [facility] Arthrodesis statusEncount er for other specified surgical aftercare 6 Giang Naeem. [facility], [address], [place], [address], [place]. tel:[phone] Referring Provider: Chele Holloway, [address], [place], [address]. tel:[phone] [facility], [address], [place], [id number] , [place] [phone] [facility] Arthrodesis statusEncount er for other specified surgical aftercare 6 Giang Naeem. [facility], [address] [facility] [address], [place], [address], [place]. tel:[phone] Referring Provider: Chele Holloway, [address], [place], [address]. tel:[phone] [facility], [address], [place], [id number] , [place] tel: [phone] [facility] No Information 6 Transfeldt Ensor. [facility], [address], [place], [place], [id number], [place]. [phone] [facility], [address], [place], [id number] , [place] [phone] [facility] No Information 5 Transfeldt Ensor. [facility] [place], [address], [address], [id number], [place]. tel:[phone] Referring Provider: Chele Holloway, [address] [facility], [place], [address]. tel:[phone] [facility], [address], [place], [place], [id number] , [place] [phone] [facility] Spinal stenosis, lumbar regionSpondyl olisthesis, lumbar region 2 5 Padmaja Hartley. [facility], [address] [place] [address] [address], [place], [address], [place]. tel:[phone] Referring Provider: Klaus Herndon, [facility] [place] [address], [address], [address]. tel:[phone] Office/Outpa tient Visit,[facility], [address], [place], [place], [id number] , [place] [phone] [facility] Spinal stenosis, lumbar regionSpondyl olisthesis, lumbar region 0 5 Transfeldt Ensor. [facility] [place], [address] [place] [address], [address], [id number], [place]. tel:[phone] Referring Provider: Chele Holloway, [address] [facility], [place], [address]. tel:[phone] Family History Family Member Type Diagnosis Age At Onset Problem (finding) Problem (finding) Problem (finding) Problem (finding) Problem (finding) Problem (finding) Problem (finding) Payers Payer name Insurance type Covered libertarian ID Authoriza tion(s) No Information Social History [...] Radiology Order Joan mbosacral Min. 4 Views ([id number]), Ordered on: Ordered History Of Present Illness Encounter Date Complaint History Of Prese nt Illness No Information Functional Status Date Functional Assessmen t No Information Instructions Date Instruction Additional Infor mation No Information Assessments Type Assessment Date No Information Patient Care Teams Name Effective Dates (start - stop) Status Members No Information
--- OUTSIDE RECORDS SUMMARY | 2023-11-04 08:37 | XMS_ITS | Clinical Summary ---
Author Name Unknown Organization [employer] [facility] Address [place], [place] [address] Care Team Providers Care Bead Machine Operator Name Role Phone Angelica Geller MD Unavailable [phone] Charlotte Gillespie MD Primary Care Provider + Allergies Active Allergy Reactions Criticality Noted Date Comments Carbamazepine Hives 02/27/2020 Mirtazapine Hives 12/18/2021 Weight gain Trazodone Nightmares 12/18/2021 nightmares Zolpidem Nightmares 12/18/2021 nightmares Medications Medication Sig Dispensed Refills Start Date End Date Status cetirizine (ZYRTEC) 10 mg tablet Take 1 tablet by mouth once daily. 0 03/29/2011 Active DULoxetine (CYMBALTA) 20 mg Delayed-release capsuleIndications :Other constipation,Troch anteric bursitis, right hip,Foot pain, right,Lumbar radicular pain,Hip pain, right Take 1 capsule by mouth 2 times daily. 180 capsule 5 12/14/2017 Active estradiol (ESTRACE) 0.5 mg tablet Take 0.5 mg by mouth once daily. 0 04/01/2019 Active lisinopriL (PRINIVIL; ZESTRIL) 10 mg tablet Take 10 mg by mouth once daily. 0 02/11/2023 Active polyethylene glycol (MIRALAX; GLYCOLAX) 17 g per packet packet Mix 1 Packet in liquid then take by mouth once daily if needed for Constipation. 0 Active pregabalin (LYRICA) 150 mg capsule Take 150 mg by mouth two times daily. 0 Active oxyCODONE (ROXICODONE) 5 mg immediate release tabletIndications: Trigeminal neuralgia of left side of face Take 1 Tablet (5 mg) by mouth every 6 hours if needed for Pain. 10 Tablet 0 06/27/2023 Active methylPREDNISolone (Medrol, Mauricio,) 4 mg tabletIndications: Trigeminal neuralgia of left side of face Take by mouth as instructed per packaging. Take with food. 21 Tablet 0 07/14/2023 Active dexAMETHasone (DECADRON) 2 mg tabletIndications: Trigeminal neuralgia of left side of face Take 1 Tablet (2 mg) by mouth three times daily with meals. 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 Nuclear senile cataract of both eyes 09/26/2020 Cervical stenosis of spine 04/10/2018 Insomnia due to medical condition 06/16/2017 Pelvic mass in female 06/01/2017 Overview: Added automatically from request for surgery [id number] Chronic fatigue 05/27/2017 Constipation by delayed colonic transit 10/14/20 15 Lumbar radicular pain 07/25/2015 Adenomatous colon polyp 09/23/2014 Overview: Colonoscopy 09/2014 Polyp repeat in 5 years Colonoscopy 11/2017 fissure, repeat in 5 years Cervical facet joint syndrome 08/15/2013 Pulmonary nodules 12/07/2010 Overview: repeat CT 11/2010 S/P C3-4, C4-5, and C5-6 spinal fusion 0 Vitamin D deficiency 12/02/2009 Family history of malignant neoplasm of gastrointestinal tract 05/30/2009 Overview: Colonoscopy 05/2009 normal repeat in 5 years Enthesopathy of ankle and tarsus, unspecified Resolved Problems Problem Noted Date Diagnosed Date Resolved Date Cervical radicular pain 05/28/201303/17 Spinal stenosis from facet joint cyst 12/16/2011 03/29/2018 Neck surgery x 3 for cervical disks 03/25/2008 05/28/2013 Overview: 1999 discectomy 1999 C5-6 fusion (ACDF) 2004 C3-5 ACDF Cervicalgia 05/28/2013 Encounters Date Type Department Care Team Description 08/25/2023 1:30 PM [facility] Phone Office Visit [facility] [address] [address] Ida Or[place] Telehealth; Surgical Followup from Last 3 Months Immunizations Name Administration Dates Next Due DT (Age < 7 years) 01/15/2005 Hepatitis A (Adult) 04/23/2015,10/23/2014 Influenza A (H1N1), Inactivated 09/03/2009 Influenza A (H1N1), Inactiva mojgan (Age >=3 Years) 09/03/2009 Influenza Virus, Unspecified 07/31/2016,07/21/20 15 Influenza, IIV3 (Age >=3 years) 07/08/2009 Influenza, IIV4 08/14/2018, 7,07/08/2016,2014 Tdap 08/17/2011 Family History Medical History Relation Name Comments Cancer-colon Brother 2 in 2003 Alcoholism Father Heart failure Mother Hypertension Mother Stroke Mother cardio Cancer-breast Other paternal cousi n 2x Other Other 1st cousin, pat cody, breast cancer Cancer-breast Paternal Aunt 3x Cancer-breast Paternal Grandmother Relation Name Status Comments Brother 1 colon cancer Brother 2 Father Mother Other Paternal Aunt Paternal Grandmother Social History Tobacco Use Types Packs/Day Years Used Date Smoking Tobacco: Never Smokeless Tobacco: Never Tobacco Cessation:Counseling Given: Yes Alcohol Use Standard Drinks/Week Comments Yes 2 (1 standard drink = 0.6 oz pur e alcohol) occasional PHQ-2 Answer Date Recorded PHQ-2 Score 2 12/16/2018 Social Connections Answer Date Recorded Frequency of Communication with Friends and Fami ly Not on file 07/14/2023 Sex and Gender Information Value Date Recorded Sex Assigned at Not on file Gender Identity Not on file Sexual Orientation Not on file Obstetrics History Para Term AB IAB SAB Ectopic Multiple Livin g Live Births 2 2 2 0 0 0 0 0 0 2 0 Date Outcome GA Total Labor Labor/2nd/3rd Weight Sex Delivery Anes PTL Maddi A1 A5 Name Cl in 1977 Term Vag 1979 Term Vag Comments No issues during o r deliveries Last Filed Vital Signs Vital Sign Reading Time Taken Comments Blood Pressure 112/58 06/23/2023 11:15 AM CDT Pulse 58 06/23/2023 11:15 AM CDT Temperature 36.5 ??C (97.7 ??F) 06/23/2023 11:00 AM C DT Respiratory Rate 12 06/23/2023 11:15 AM CDT Oxygen Saturation 90% 06/23/2023 11:15 AM CDT Inhaled Oxygen Concentration - - Weight 82.3 kg (181 lb 8 oz) 06/23/2023 6:23 AM CDT Height 170.2 cm (5' 7) 06/23/2023 6:23 AM CDT Body Mass Index 28.43 06/23/2023 6:23 AM CDT Plan of Treatment Health Maintenance Due Date Last Done Comments Hepatitis C screening for ag e 18-79 1973 Zoster (shingles) series for age 50+ (1 of 2) 2005 Mammogram for age 45-75 10/13/2018 10/13/20 17, 10/11/2017, 09/07/2016, Additional history exists Depression screening for age 12+ 04/18/2019 04/18/2018, 02/16/2017, 02/18/2016 DEXA/DXA scan for age 65+ 2020 10/16/2009 Medicare Wellness for age 65+ 2020 Pneumococcal series for age 65+ (1 of 1 - PCV) 2020 Tetanus booster 08/17/2021 08/17/2011, 03/17 ([facility]) Colonoscopy through age 75 12/01/202212/01, 12/01/2017, 09/20/2014, Additional history exists Lipids for age 45-75 04/07/2023 04/07/2018, 12/26/2014, 04/27/2011, Additional history exists COVID-19 vaccine series ( season) 2023 07/31/2021, 01/13/2021, 12/23/2020 Influenza for age 65+ 06/17/2023 08/14/2018 , 07/06/2017, 07/31/2016, Additional history exists BMI (ht and wt on same day) for age 18+ 03/02/2024 03/02/2023, 04/09/2019, 10/20/2018, Additional history exists Tdap Completed 08/17/2011 Medical Devices Implanted Type Area Gallery Intern Device Identifier Shelf Expiration Date Model / Serial / Lot Chang Lmbr 40x5.5mm Tsrh 3d Cvd Titnm - [id number] Implanted:Qty: 1 on 10/14/2015 by Klaus Mercado MBChB at [facility] Spine Implants N/A: Spine Medtronic Spine/Ortho [id number] # / / [id number] 60cc Mtf Crushed Canclls [[id number]] Implanted:Qty: 1 on 10/14/2015 by Klaus Mercado MBChB at [facility] Explanted:at [facility] (Quantity not on file) N/A: Spine Musculoskeletal Transplant 06/11/2018 [id number]# / [id number] / Spacer Lmbr [id number] [place] Vb Tlif Peek - [id number] Implanted:Qty: 1 on 10/14/2015 by Klaus Mercado MBChB at [facility] N/A: Spine Medtronic Spine/Ortho [id number] # / / [id number] Set Screw Lmbr Tsrh 3dx - [id number] Implanted:Qty: 4 on 10/14/2015 by Klaus Mercado MBChB at [facility] N/A: Spine Medtronic Spine/Ortho [id number] # / / Cnnctr Lmbr Sm Tsrh 3dx Offsettitnm - [id number] Implanted:Qty: 4 on 10/14/2015 by Klaus Mercado MBChB at [facility] N/A: Spine Medtronic Spine/Ortho [id number] # / / Screw Lmbr Post 6.5x40mm Tsrh 3dx Og Thin Va - [id number] Implanted:Qty: 4 on 10/14/2015 by Klaus Mercado MBChB at [facility] N/A: Spine Medtronic Spine/Ortho [id number]# / / Chang Lmbr 45x5.5mm Tsrh 3d Cvd Titnm - [id number] Implanted:Qty: 1 on 10/14/2015 by Klaus Mercado [facility] at [facility] N/A: Spine Medtronic Spine/Ortho [id number] # / / Plate Cerv 1lvl 23mm [place] Vision Elite Ant - [id number] Implanted:Qty: 1 on 04/12/2018 by Fitz Rojas MD at [facility] N/A: Spine Medtronic Spine/Ortho [id number] # / / [id number] [employer] Acc Implanted:Qty: 1 on 04/12/2018 by Fitz Rojas MD at [facility] Explanted:at [facility] (Quantity not on file) N/A: Spine Medtronic Spine/Ortho 09/12/2020 [id number]# / [id number] / [id number] 1cc [place] Plus Paste Dbm Implanted:Qty: 1 on 04/12/2018 by Fitz Rojas MD at [facility] Explanted:at [facility] (Quantity not on file) N/A: Spine Medtronic Spine/Ortho 11/01/2019 [id number]# / [id number] / Screw Cerv Ant 4x14mm [employer] Va Slf Tppng - [id number] Implanted:Qty: 4 on 04/12/2018 by Fitz Rojas MD at [facility] N/A: Spine Medtronic Spine/Ortho [id number] # / / Advance Directives Latest Code Status on File Code Status Date Activated Date Inactivated Comments Full Code 06/23/2023 5:51 AM 06/23/2023 2:28 PM Question Answer Comments Code Status Discussion: Unable to Assess Preferences, Provider to review later Code Status History Code Status Date Activated Date Inactivated Comments Full Code 04/12/2018 10:55 PM 04/14/2018 1:48 PM Question Answer Comments Code Status Discussion: Not Discussed Per Advance Care Plan Full Code 04/12/2018 3:42 PM 04/12/2018 10:55 PM Question Answer Comments Code Status Discussion: Not Discussed Per Advance Care Plan Full Code 06/17/2017 11:01 AM 06/17/2017 7:24 PM Full Code 10/14/2015 4:44 PM 10/17/2015 7:23 PM Care Teams Bead Machine Operator Relationship Specialty Start Date End Date Charlotte Gillespie MD [address] [place] [address] PCP - General Family Practice 04/09/19 Angelica Geller MD [address] [place] [address] [address] [place] [address] Urology Surgery - Colon and Rectal 11/28/17
--- OUTSIDE RECORDS SUMMARY | 2023-11-04 08:37 | XMS_ITS | Clinical Summary ---
Author Name Unknown Organization [facility] Address [address] [place] [address]. [place] [address] Care Team Providers Care Propagation Manager Name Role Phone Charlotte Gillespie MD Primary Care Provider + Allergies Active Allergy Reactions Criticality Noted Date Comments Carbamazepine Unknown 02/27/2020 Mirtazapine 12/18/2021 Weight gain Trazodone 12/18/2021 nightmares Zolpidem 12/18/2021 nightmares Medications Medication Sig Dispensed Refills Start Date End Date Status pregabalin (LYRICA) 100 MG capsule Take 100 mg by mouth 2 times daily 0 Active vitamin D3 (CHOLECALCIFEROL) 50 mcg (2000 units) tablet Take 1 tablet by mouth daily 0 Active estradiol (ESTRACE) 1 MG tablet Take 1 mg by mouth daily 0 Active DULoxetine (CYMBALTA) 20 MG capsule Take 20 mg by mouth daily 0 Active polyethylene glycol (MIRALAX) 17 GM/Dose powder Take 1 capful by mouth daily as needed for constipation 0 Active multivitamin w/minerals (MULTI-VITAMIN) tablet Take 1 tablet by mouth daily 0 Active Probiotic, Lactobacillus, CAPS Take 2 capsules by mouth daily 0 Active senna-docusate (SENOKOT-S/PERICOL ALESHA) 8.6-50 MG tablet Take 1 tablet by mouth 2 times daily as needed for constipation Take 0.5 - 1 tab daily PRN 0 Active cetirizine (ZYRTEC) 10 MG tablet Take 10 mg by mouth daily as needed for allergies 0 Active sulfamethoxazole-t rimethoprim (BACTRIM DS) 800-160 MG tablet TAKE 1 TABLET BY MOUTH TWICE A DAY 0 12/21/2021 Active ibuprofen (ADVIL/MOTRIN) 600 MG tabletIndications: Post-operative state Take 1 tablet (600 mg) by mouth every 6 hours as needed for moderate pain 30 tablet 0 12/29/2021 Active Active Problems Problem Noted Date Diagnosed Date Post-operative state 12/28/2021 Social History Tobacco Use Types Packs/Day Years Used Date Smoking Tobacco: Never Smokeless Tobacco: Never Alcohol Use Standard Drinks/Week Comments Yes 0 (1 standard drink = 0.6 oz pur e alcohol) occ Adolescent Education Answer Date Record ed Getting School Help Needed Not on file 07/09 Sex and Gender Information Value Date Recorded Sex Assigned at Not on file Gender Identity Not on file Sexual Orientation Not on file Last Filed Vital Signs Vital Sign Reading Time Taken Comments Blood Pressure 116/64 12/29/2021 3:59 AM CDT Pulse 75 12/29/2021 8:30 AM CDT Temperature 37.1 ??C (98.7 ??F) 12/29/2021 8:30 AM CD T Respiratory Rate 19 12/29/2021 8:30 AM CDT Oxygen Saturation 94% 12/29/2021 8:30 AM CDT Inhaled Oxygen Concentration - - Weight 86.2 kg (190 lb 1.6 oz) 12/28/2021 6:10 A M CDT Height 171.5 cm (5' 7.5) 12/28/2021 6:10 AM CDT Body Mass Index 29.33 12/28/2021 6:10 AM CDT Plan of Treatment Health Maintenance Due Date Last Done Comments ADVANCE CARE PLANNING 1955 ANNUAL REVIEW OF HM ORDERS 1955 CT COLONOGRAPHY 1955 DEXA 1955 FIT 1955 FLEX SIG 1955 MAMMO SCREENING 1955 sDNA (Cologuard) 1955 COLONOSCOPY 1965 COLORECTAL CANCER SCREENING 1965 HEPATITIS C SCREENING 1973 LIPID 2000 RSV VACCINE ( & 60+) (1 - 1-dose 60+ series) 2015 FALL RISK ASSESSMENT 2020 MEDICARE ANNUAL WELLNESS VISIT 2020 Pneumococcal Vaccine: 65+ Years (2 of 2 - PPSV23 or PCV20) 07/07/2022 07/07/2021 COVID-19 Vaccine (4 - 2022- season) 2023 07/31/2021, 01/13/2021, 12/23/2020 INFLUENZA VACCINE (#1) 2023 , 08/13/2020, 08/13/2020, Additional history exists PHQ-2 (once per calendar year) 2023 DTAP/TDAP/TD IMMUNIZATION (4 - Td or Tdap) 08/14/2028 08/14/2018, 08/13/2018, 08/17/2011 ZOSTER IMMUNIZATION Completed 12/14/2019, 9 HPV IMMUNIZATION Aged Out No longer e ligible based on patient's age to complete this topic IPV IMMUNIZATION Aged Out No longer e ligible based on patient's age to complete this topic MENINGITIS IMMUNIZATION Aged Out No l onger eligible based on patient's age to complete this topic RSV MONOCLONAL ANTIBODY Aged Out No l onger eligible based on patient's age to complete this topic Medical Devices Implanted Type Area Trekking Guide Device Identifier Shelf Expiration Date Model / Serial / Lot Mesh Sling Advantage Fit System [id number] - [id number] Implanted:Qty: 1 on 12/28/2021 by Ria Kim MD at [facility] Mesh N/A: Pelvis [employer] 11/30/2024 [id number] / / [id number] Advance Directives For more information, please contact: [phone] Latest Code Status on File Code Status Date Activated Date Inactivated Comments Full Code 12/28/2021 1:25 PM 12/29/2021 5:29 PM All b asic and advanced life-sustaining interventions are performed as appropriate Question Answer Comments Code status determined by: Discussion with patient/ legal decision maker Care Teams Propagation Manager Relationship Specialty Start Date End Date Charlotte Gillespie MD [address] [address] PCP - General Family Medicine 12/09/21
--- OUTSIDE RECORDS SUMMARY | 2023-11-04 08:37 | XMS_ITS | Referral Summary ---
Author Name Unknown Organization [facility] Address [address] [place] [address]. [place] [address] Care Team Providers Care Dispatcher Bus And Trolley Name Role Phone Charlotte Gillespie MD Primary [...] 12/28/2021 6:10 AM CDT Plan of Treatment Not on file Medical Devices Implanted Type Area [employer] Scouting Coordinator Device Identifier Shelf Expiration Date Model / Serial / Lot Mesh Sling Advantage Fit System [id number] - [id number] Implanted:Qty: 1 on 12/28/2021 by Ria Kim MD at [facility] Mesh N/A: Pelvis [employer] 11/30/2024 [id number] / / [id number] Advance Directives For more information, please contact: [phone] Latest Code Status on File Code Status Date Activated Date Inactivated Comments Full Code 12/28/2021 1:25 PM 12/29/2021 5:29 PM All b asic and advanced life-sustaining interventions are performed as appropriate Question Answer Comments Code status determined by: Discussion with patient/ legal decision maker Care Teams Dispatcher Bus And Trolley Relationship Specialty Start Date End Date Charlotte Gillespie MD [facility] [address] [place] [address] PCP - General Family Medicine 12/09/21
--- NOTE | 2023-11-04 08:45 | CRLHL7_ITS ---
For Patients: As a result of the Century Cures Act, medical imaging exams and procedure reports are released immediately into your electronic medical record. You may view this report before your referring provider. If you have questions, please contact your health care provider. BILATERAL SCREENING MAMMOGRAM WITH COMPUTER-AIDED DETECTION AND TOMOSYNTHESIS TECHNIQUE: CC and MLO views were obtained. These mammographic images have been obtained using full-field digital technique. These mammographic images were interpreted with the benefit of computer-aided detection. Breast Tomosynthesis was used in this interpretation. COMPARISON FILM: 11/11/22, 08/05/21, 07/07/20. FINDINGS: The breasts are heterogeneously dense, which may obscure small masses. IMPRESSION: There is no radiographic evidence for malignancy. ASSESSMENT: BI-RADS Category 2: Benign RECOMMENDATION: Routine screening mammogram in 1 year. A lay language report of this examination will be provided to the patient. Benny Sherwood M.D. Diagnostic Radiologist [email or web address] SP/Dictated by: Benny Sherwood MD @ 11/04/2023 10:24:00 AM (Electronically Signed)
== END 2023-11-04 08:34 | disposition home or self-care (01) ==
LOC: MAMMO 08:34
PROVIDERS: PCP Family Medicine; Visit Provider Family Medicine
DX: Z12.31 Encounter for screening mammogram for malignant neoplasm of breast (principal); R92.2 Inconclusive mammogram
CPT/HCPCS: 77063; 77067

== ENCOUNTER 2023-12-20 07:46 | Outpatient (CLI) | payer OTHER, SELFPAY | END 2023-12-20 07:47 | disposition home or self-care (01) | LOC: NFLDREF 01-02 12:43 | PROVIDERS: PCP Family Medicine; Referring Provider Family Medicine; Visit Provider Family Medicine | DX: G25.81 Restless legs syndrome (principal); G62.9 Polyneuropathy, unspecified; I10 Essential (primary) hypertension; R73.03 Prediabetes; E78.5 Hyperlipidemia, unspecified | CPT/HCPCS: 80053; 80061; 82607; 82728 ==

== ENCOUNTER 2024-01-06 07:30 | Outpatient (RCR) | payer OTHER, SELFPAY ==
--- NOTE | 2023-12-26 16:09 | PT.OPEX ---
PT [facility] Outpatient Eval PT [facility] Outpatient Eval Start: 12/26/23 07:38 Freq: Status: Active Protocol: Document 12/26/23 07:38 BILLIE (Rec: 12/26/23 16:04 BILLIE [id number]) E-signed By Ania Dickerson DPT Physical Therapy Outpatient Evaluation Insurance Information Recert Due Date 03/25/24 Insurance Name Medicare B Medical Diagnosis bilateral knee pain Treating Diagnosis bilateral knee pain, core/hip/ glut/quad weakness, limited tolerance for extended standing/walking/stairs/ bending activities Subjective Subjective Patient reports chronic bilateral knee pain for the last 6 months. Also reports some swelling/inflammation in bilateral knees, lower legs. States she started to wear compression socks on occasion and that seems to help the swelling in her lower legs/ ankles. She reports being active with helping to build their new house, lots of standing, walking, bending, lifting the last several months. She is using Aleve on days with increased activity. Occasionally using ice but not very often. Has not tried heat, knee braces, or topical ointment. She has used volteran lotion in the past but has not tried it on her knees yet. Sleep has been ok. Pain range 2-8/10 with R knee pain usually worse than L knee pain. She is trying to walk about 30 min, 5 days a week for her health. Plans to start with an anti- inflammatory diet soon, meeting with a monument erector to get started. Date of Last Physician Visit 11/24/23 Current Work Status Retired Precautions Treatment Precautions/Contraindications HX: L hip labral repair surgery approx 5-6 years ago, multiple UBN surgeries/fusions , L4-5 back fusion approx 8 years ago. Assessment Assessment/Impression Patient is a 68 year old female with bilateral knee pain, core/hip/glut/quad weakness, limited tolerance for extended standing/walking/ stairs/bending activities. Pain range 2-8/10. Patient reports increased pain with extended standing/walking, stairs, bending activities. States she has been helping to build their new home and that has been a source for her bilateral knee pain over the last 6 months. Patient is tender with palpation L medial knee and R lateral knee joint lines. Bilateral knee ROM: 0 -0-130 degrees. Patient denies increased pain with full ext or at end range flexion. She reports hx of neck surgeries, LB surgeries, L hip labral repair. Patient with general core/hip/glut/ quad/VMO weakness. She denies any injury/trauma to her knees. States xrays showed OA . Patient would benefit from skilled PT for pain/sx management, general core/hip/ glut/LE strengthening, balance /proprioception training, and establishment of HEP. Plan of Care Rehabilitation Potential Good Physical Therapy Goals 1. Decrease bilateral knee pain to less than/equal to 4/ 10 with daily/work activities and with the progression of PT activities over the next 4-6 weeks. 2. Improve core/hip/glut/VMO/ LE strength over the next 10 weeks for decrease stress to bilateral knees, decreased bilateral knee pain, improved gait, and improved tolerance for extended standing/walking/stairs for daily activities. 3. Improve balance/ proprioception over the next 8 weeks for improved stability with static/dynamic activities , decreased stress to bilateral knees, decreased bilateral knee pain, improved gait, and improved tolerance for extended standing/walking/ stairs for daily activities. 4. Patient will be I with HEP within 10 weeks for progression toward above goals, ongoing self management of pain/sx, ongoing self improvements in core/hip/glut/LE strength, and for improved tolerance for extended standing/walking/stairs for daily activities. Coordination/Communication With Referral Source Treatment Plan/Direct Interventions Manual Therapy,Therapeutic Exercises Frequency/Duration 1x/week Patient Will Be Discharged From Therapy Completion of LTG(s),Skills Plateau,Independent w/HEP, Independently Progressing Evaluation Billing Untimed Code Treatment Minutes 23 Complexity Moderate Certification Information Initial Certification Date 12/26/23 Ending Certification Date 03/25/24 Provider Signature Shows Agreement With POC & Medical Necessity Physician Signature & Date Requested Please Sign/Date Here Physician Comment/Change : Physician NPI Number #
== END 2024-05-05 23:59 | disposition home or self-care (01) ==
PROVIDERS: PCP Family Medicine; Visit Provider Family Medicine
DX: M25.561 Pain in right knee (principal); M25.562 Pain in left knee; Z51.89 Encounter for other specified aftercare
CPT/HCPCS: 97110; 97162

== ENCOUNTER 2024-01-19 11:01 | Outpatient (CLI) | payer OTHER, SELFPAY ==
[2024-01-19 11:54] LABS: Mononuclear WBC Body Fluid* 88 %; Polynuclear WBC Body Fluid* 12 %; RBC, Body Fluid* 1000 Cells/uL; WBC, Body Fluid* 108 Cells/uL
[2024-01-19 12:00] LABS: BF Color Xanthochromic
[2024-01-19 12:01] LABS: BF Clarity* Clear
== END 2024-01-19 11:02 | disposition home or self-care (01) ==
PROVIDERS: PCP Family Medicine; Visit Provider Family Medicine
DX: M25.461 Effusion, right knee (principal); M25.561 Pain in right knee
CPT/HCPCS: 87070; 89051; 89060

== ENCOUNTER 2024-01-31 08:34 | Outpatient (CLI) | payer OTHER, SELFPAY ==
--- NOTE | 2024-01-31 08:15 | MR_ITS ---
[address] [address] Phone:?[phone] Fax:?[phone] Referring Physician Information: Geoff Ferguson M.D. [id number] [id number] Phone:?[phone] Fax:?[phone] Patient:Juice Vargas D.O.B:?1955 Sex:?Female Phone:?[phone] [facility] MRN:?[id number] Exam Date:?01/31/2024 EXAM: MRI of the RIGHT KNEE, without contrast CLINICAL INFORMATION: Female, 68 years old, with right knee proximal meniscus tear. INDICATION: Right knee pain, evaluate for meniscus tear. PRIOR SURGERY: None reported. PLAIN FILMS: Radiographs 11/24/2023. COMPARISONS: No prior MRIs available. TECHNICAL INFORMATION: Using a 1.5T MR scanner and a localizing surface coil: sagittals: PD, PDFS coronals: PD, T2FS axials: PD, PDFS SEDATION: None CONTRAST: None FINDINGS: Knee joint: Effusion: Large sized right knee effusion with synovitis. Popliteal cyst: Mild fluid along the posteromedial knee may reflect residua of popliteal cyst rupture. Loose bodies: None. Subcutaneous and extra-articular soft tissues: Moderate prepatellar subcutaneous soft tissue edema. Ligaments: ACL: Intact ACL anteromedial and posterolateral bundles, without sprain or tear. PCL: Intact PCL, without acute or chronic injury. MCL: Intact MCL superficial and deep layers, without injury. LCL: Intact LCL, without injury. Posterolateral corner: No posterolateral corner soft tissue injury. Popliteus, biceps femoris, iliotibial band, popliteofibular ligament and lateral gastrocnemius are intact. Posteromedial corner: Semimembranosus, pes anserine tendons and posterior oblique ligament are without injury, tendinopathy or bursitis. Extensor mechanism: Patellar tendon: Intact, without tendinopathy. Quadriceps tendon: Intact, without tendinopathy. Retinacula: Medial and lateral retinacula are intact. Fat pads: Unremarkable infrapatellar Hoffa's, quadriceps and prefemoral fat pads. Medial compartment: Medial meniscus: Medial meniscus is abnormal in appearance. There is oblique undersurface tearing extending to the periphery along the body and posterior horn over a length of approximately 3.0 cm (sagittal series 6 image 22), with superimposed vertical oblique tearing involving the inner third along the posterior horn as well, measuring 6 mm in length (sagittal series 6 image 22). Interstitial delamination is seen to involve the posterior root without high- grade posterior root disruption. There is 3 mm peripheral meniscal extrusion at the level of the body with 2 mm inferior extension into the medial gutter. Medial femoral condyle and tibial plateau: Grade 2 chondral thinning along the central weightbearing medial femoral condyle and tibial plateau without underlying marrow reactive edema. Lateral compartment: Lateral meniscus: No articular surface, meniscosynovial junction or root tear. No displacement, extrusion or parameniscal cyst. Lateral femoral condyle: No chondromalacia or osteochondral abnormality. Lateral tibial plateau: Small region of grade III chondromalacia along the far posterior lateral tibial plateau centrally. 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 Full-thickness fissuring across it extends across the central midline ridge. Trochlea: No chondromalacia or osteochondral abnormality. Proximal tibiofibular joint: Unremarkable, without evidence of ligament sprain injury, joint effusion or adjacent marrow edema. Bones: No stress/occult fractures or other marrow edema/pathology. IMPRESSION: 1. Tearing along the body and posterior horn of the medial meniscus as described above, without evidence for posterior root disruption. Mild 3 mm peripheral meniscal extrusion with 2 mm inferior extension into the medial gutter. 2. No lateral meniscus tear. 3. Moderate size region of grade III/IV chondromalacia of the medial patellar facet and central midline ridge. 4. Mild chondral thinning of the central weightbearing medial femoral condyle tibial plateau. 5. Small region of grade III chondromalacia along the posterior lateral tibial plateau. 6. No cruciate or collateral ligament sprain/tear. 7. Large size knee joint effusion. Mild fluid along the posterior medial knee may reflect rupture Colbert's cyst. KME Electronically signed on 01/31/2024 6:38:00 PM by Jocelyne Sanchez M.D.
--- OUTSIDE RECORDS SUMMARY | 2024-01-31 08:36 | XMS_ITS | Referral Summary ---
Author Name Unknown Organization [facility] Address [address] [place] [address]. [place] [address] Care Team Providers Care Cement Breaker Name Role Phone Charlotte Gillespie MD Primary Care Provider + Allergies Active Allergy Reactions Criticality Noted Date Comments Carbamazepine Unknown 02/27/2020 Mirtazapine 12/18/2021 Weight gain Trazodone 12/18/2021 nightmares Zolpidem 12/18/2021 nightmares Medications Medication Sig Dispensed Refills Start Date End Date Status pregabalin (LYRICA) 100 MG capsule Take 100 mg by mouth 2 times daily Active vitamin D3 (CHOLECALCIFEROL) 50 mcg (2000 units) tablet Take 1 tablet by mouth daily Active estradiol (ESTRACE) 1 MG tablet Take 1 mg by mouth daily Active DULoxetine (CYMBALTA) 20 MG capsule Take 20 mg by mouth daily Active polyethylene glycol (MIRALAX) 17 GM/Dose powder Take 1 capful by mouth daily as needed for constipation Active multivitamin w/minerals (MULTI-VITAMIN) tablet Take 1 tablet by mouth daily Active Probiotic, Lactobacillus, CAPS Take 2 capsules by mouth daily Active senna-docusate (SENOKOT-S/PERICOL ALESHA) 8.6-50 MG tablet Take 1 tablet by mouth 2 times daily as needed for constipation Take 0.5 - 1 tab daily PRN Active cetirizine (ZYRTEC) 10 MG tablet Take 10 mg by mouth daily as needed for allergies Active sulfamethoxazole-t rimethoprim (BACTRIM DS) 800-160 MG tablet TAKE 1 TABLET BY MOUTH TWICE A DAY 12/21/2021 Active ibuprofen (ADVIL/MOTRIN) 600 MG tabletIndications: Post-operative state Take 1 tablet (600 mg) by mouth every 6 hours as needed for moderate pain 30 tablet 12/29/2021 Active Active Problems Problem Noted Date [...] on file Medical Devices Implanted Type Area Outboard Motor Mechanic Device Identifier Shelf Expiration Date Model / Serial / Lot Mesh Sling Prolapse Polyform Synth [id number] - [id number] Implanted:Qty: 1 on 12/28/2021 by Ria Kim MD at [facility] Mesh N/A: Pelvis [employer] 11/16/2024 [id number] / / [id number] Mesh Sling Advantage Fit System [id number] - [id number] Implanted:Qty: 1 on 12/28/2021 by Ria Kim MD at [facility] Mesh N/A: Pelvis [employer] 11/30/2024 [id number] / / [id number] Advance Directives For more information, please contact: [phone] * Full Code (Latest Code Status on File) Date Activated Date Inactivated Comments 12/28/2021 1:25 PM 12/29/2021 5:29 PM All basic an d advanced life-sustaining interventions are performed as appropriate Question Answer Comments Code status determined by: Discussion with lisa steiner/ legal decision maker Care Teams Cement Breaker Relationship Specialty Start Date End Date Charlotte Gillespie MD [facility] [address] [place] [address] PCP - General Family Medicine 12/09/21
--- OUTSIDE RECORDS SUMMARY | 2024-01-31 08:36 | XMS_ITS | Clinical Summary ---
Author Name Unknown Organization [place] Address [address] [place] [address]. [place] [address] Care Team Providers Care Stock Patcher Name Role Phone Charlotte Gillespie MD Primary [...] DEXA 1955 FIT 1955 FLEX SIG 1955 GLUCOSE 1955 MAMMO SCREENING 1955 sDNA (Cologuard) 1955 COLONOSCOPY 1965 COLORECTAL CANCER SCREENING 1965 HEPATITIS C SCREENING 1973 LIPID 1995 RSV VACCINE ( & 60+) (1 - 1-dose 60+ series) 2015 FALL RISK ASSESSMENT 2020 MEDICARE ANNUAL WELLNESS VISIT 2020 Pneumococcal Vaccine: 65+ Years (2 of 2 - PPSV23 or PCV20) 07/07/2022 07/07/2021 COVID-19 Vaccine (4 - 2023-24 season) 2023 07/31/2021, 01/13/2021, 12/23/2020 INFLUENZA VACCINE [...] this topic Medical Devices Implanted Type Area Network/Telecom Engineer Device Identifier Shelf Expiration Date Model / Serial / Lot Mesh Sling Prolapse Polyform Synth [id number] - [id number] Implanted:Qty: 1 on 12/28/2021 by Ria Kim MD at [facility] Mesh N/A: Pelvis [employer] 11/16/2024 [id number] 0 / / [id number] Mesh Sling Advantage Fit System [id number] - [id number] Implanted:Qty: 1 on 12/28/2021 by Ria iKm MD at [facility] Mesh N/A: Pelvis [employer] 11/30/2024 [id number] / / [id number] Advance Directives For more information, please contact: [phone] * Full Code (Latest Code Status on File) Date Activated Date Inactivated Comments 12/28/2021 1:25 PM 12/29/2021 5:29 PM All basic an d advanced life-sustaining interventions are performed as appropriate Question Answer Comments Code status determined by: Discussion with lisa nt/ legal decision maker Care Teams Stock Patcher Relationship Specialty Start Date End Date Charlotte Gillespie MD [facility] & [address] [address] PCP - General Family Medicine 12/09/21
--- OUTSIDE RECORDS SUMMARY | 2024-01-31 08:36 | XMS_ITS | Continuity of Care Document ---
Author Name Unknown Organization [facility] Address [address] [place] [address] Phone Care Team Providers Care Structural Metal Fabricator Apprentice Name Role Phone Naeem Virk Unavailable Unavaila [...] Pa Assist Apply Spinal Prosthetic Device Office/Outpatient Visit,[facility] 2014 X-Ray Exam Lwr Spine, Min 4 Views Advance Directives Directive Yes / No Effective Date File Name No Information Encounters Encounter Description Practice Location Reason(s) For Visit Diagnoses Date Provider Providers Copied on Encounter [facility], [address], [place], [place], [id number] , [place] tel:[phone] [facility] No Information 7 Giang Naeem. [facility], [address], [place], [address], [place]. tel:[phone] [facility], [address], [place], [place], [id number] , [place] tel:[phone] [facility] Arthrodesis statusEncount er for other specified surgical aftercare 6 Giang Naeem. [facility], [address], [place], [address], [place]. tel:[phone] Referring Provider: Chele Holloway, [address], [place], [address]. tel:[phone] [facility], [address], [place], [place], [id number] , [place] [phone] [facility] Arthrodesis statusEncount er for other specified surgical aftercare 6 Giang Naeem. [facility], [address], [place], [address], [place]. tel:[phone] Referring Provider: Chele Holloway, [address], [place], [address]. tel:[phone] [facility], [address], [place], [place], [id number] , [place] [phone] [facility] No Information 6 Transfeldt Ensor. [facility], [address], [place], [place], [id number], [place]. [phone] [facility], [address], [place], [place], [id number] , [place] [phone] [facility] No Information 5 Transfeldt Ensor. [facility], [address], [address], [id number], [place]. tel:[phone] Referring Provider: Chele Holloway, [address] [facility], [place], [address]. tel:[phone] [facility], [address], [place], [place], [id number] , [place] [phone] [facility] Spinal stenosis, lumbar regionSpondyl olisthesis, lumbar region 2 5 Padmaja Hartley. [facility], [address] [place] [address] [address], [place], [address], [place]. tel:[phone] Referring Provider: Klaus Herndon, [facility] [address], [address], [address]. tel:[phone] Office/Outpa tient Visit,[facility], [address], [place], [place], [id number] , [place] [phone] [facility] Spinal stenosis, lumbar regionSpondyl olisthesis, lumbar region 0 5 Transfeldt Ensor. [facility], [address] [place] [address], [address], [id number], [place]. tel:[phone] Referring Provider: Chele Holloway, [address] [facility], [place], [address]. tel:[phone] Family History Family Member Type Diagnosis Age [...] Radiology Order Joan mbosacral Min. 4 Views ([id number]), Ordered on: Ordered History Of Present Illness Encounter Date Complaint History Of Prese nt Illness No Information Functional Status Date Functional Assessmen t No Information Instructions Date Instruction Additional Infor mation No Information Assessments Type Assessment Date No Information Patient Care Teams Name Effective Dates (start - stop) Status Members No Information
--- OUTSIDE RECORDS SUMMARY | 2024-01-31 08:36 | XMS_ITS | Clinical Summary ---
Author Name Unknown Organization [facility] Address [place], [place] [address] Care Team Providers Care Solid Waste Disposal Manager Name Role Phone Angelica Geller MD Unavailable [phone] [place] Gillespie MD Primary Care Provider + [...] Take 0.5 mg by mouth once daily. 04/01/2019 Active lisinopriL (PRINIVIL; ZESTRIL) 10 mg tablet Take 10 mg by mouth once daily. 02/11/2023 Active polyethylene glycol (MIRALAX; GLYCOLAX) 17 g per packet packet Mix 1 Packet in liquid then take by mouth once daily if needed for Constipation. Active pregabalin (LYRICA) 150 mg capsule Take 150 mg by mouth two times daily. Active oxyCODONE (ROXICODONE) 5 mg immediate release tabletIndications: Trigeminal neuralgia of left side of face Take 1 Tablet (5 mg) by mouth every 6 hours if needed for Pain. 10 Tablet 06/27/2023 Active dexAMETHasone (DECADRON) 2 mg tabletIndications: Trigeminal neuralgia of left side of face Take 1 Tablet (2 mg) by mouth three times daily with meals. 90 Tablet 08/03/2023 Active methylPREDNISolone (Medrol, Mauricio,) 4 mg tabletIndications: Trigeminal neuralgia of left side of face Take by mouth as instructed per packaging. Take with food. 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 Nuclear senile cataract of both eyes 09/26/2020 Cervical stenosis of spine 04/10/2018 Insomnia due to medical condition 06/16/2017 Pelvic mass in female 06/01/2017 Overview: Added automatically from request for surgery [id number] Chronic fatigue 05/27/2017 Constipation by delayed colonic [...] Encounters Date Type Department Care Team Description 11/09/2023 Telephone [facility] [address] [place] [id number] Felisha Mcdowell, ECHO VASC TECH Surgical Followup 11/09/2023 Telephone [facility] [address] [facility] [address] [place] [address] Felisha Mcdowell, ECHO VASC TECH Surgical Followup from Last 3 Months Immunizations [...] n 2x Other Other 1st cousin, pat ernal, breast cancer Cancer-breast Paternal Aunt 3x Cancer-breast [...] PTL Maddi A1 A5 Name Cl in 1978 Term Vag 1979 Term Vag Comments [...] booster 08/17/2021 08/17/2011, 03/17 (Completed outside of [facility]) Colonoscopy through age 75 12/01/202212/01, 12/01/2017, 09/20/2014, Additional history exists Lipids for age 45-75 04/07/2023 04/07/2018, 12/26/2014, 04/27/2011, Additional history exists COVID-19 vaccine series (2022- season) 2023 07/31/2021, 01/13/2021, 12/23/2020 BMI (ht and wt on same day) for age 18+ 03/02/2024 03/02/2023, 04/09/2019, 10/20/2018, Additional history exists Influenza for age 65+ 06/17/2024 08/14/2018 , 07/06/2017, 07/31/2016, Additional history exists Tdap Completed 08/17/2011 Medical Devices Implanted Type Area [employer]els Reclamation Engineer Device Identifier Shelf Expiration Date Model / Serial / Lot Chang Lmbr 40x5.5mm Tsrh 3d Cvd Titnm - [id number] Implanted:Qty: 1 on 10/14/2015 by Klaus Mercado MBChB at [facility] Spine Implants N/A: Spine Medtronic Spine/Ortho [id number] # / / [id number] 60cc Mtf Crushed Canclls [[id number]] Implanted:Qty: 1 on 10/14/2015 by Klaus Mercado MBChB at [facility] Explanted:at [facility] (Quantity not on file) N/A: Spine Musculoskeletal Transplant 06/11/2018 [id number]# / [id number] / Spacer Lmbr 11v65vc [place] Vb Tlif Peek - [id number] Implanted:Qty: 1 on 10/14/2015 by Klaus Mercado MBChB at [facility] N/A: Spine Medtronic Spine/Ortho [id number] # / / [id number] Set Screw Lmbr Tsrh 3dx - [id number] Implanted:Qty: 4 on 10/14/2015 by Klaus Mercado MBChB at [facility] N/A: Spine Medtronic Spine/Ortho [id number] # / / Cnnctr Lmbr Sm Tsrh 3dx Offsettitnm - [id number] Implanted:Qty: 4 on 10/14/2015 by Klaus Mercado MBChB at [facility] N/A: Spine Medtronic Spine/Ortho [id number] # / / Screw Lmbr Post 6.5x40mm Tsrh 3dx Og Thin Va - [id number] Implanted:Qty: 4 on 10/14/2015 by Klaus Mercado MBChB at [facility] N/A: Spine Medtronic Spine/Ortho [id number]# / / Chang Lmbr 45x5.5mm Tsrh 3d Cvd Titnm - [id number] Implanted:Qty: 1 on 10/14/2015 by Klaus Mercado [facility] at [facility] N/A: Spine Medtronic Spine/Ortho [id number] # / / Plate Cerv 1lvl 23mm [place] Vision Elite Ant - [id number] Implanted:Qty: 1 on 04/12/2018 by Fitz Rojas MD at [facility] N/A: Spine Medtronic Spine/Ortho [id number] # / / [id number] Cornerstone Acc Implanted:Qty: 1 on 04/12/2018 by Fitz Rojas MD at [facility] Explanted:at [facility] (Quantity not on file) N/A: Spine Medtronic Spine/Ortho 09/12/2020 [id number]# / [id number] / [id number] 1cc Lindon Plus Paste Dbm Implanted:Qty: 1 on 04/12/2018 by Fitz Rojas MD at [facility] Explanted:at [facility] (Quantity not on file) N/A: Spine Medtronic Spine/Ortho 11/01/2019 [id number]# / [id number] / Screw Cerv Ant 4x14mm Atlantistranslational Va Slf Tppng - [id number] Implanted:Qty: 4 on 04/12/2018 by Fitz Rojas MD at [facility] N/A: Spine Medtronic Spine/Ortho [id number] # / / Procedures Procedure Name Priority Date/Time Associated Diagnosis Comments LIPID PANEL W REFLEX MEASURED LDL Routine 04/07/2018 9:32 AM CDT Screening cholesterol level COLONOSCOPY 12/01/2017 7:59 AM APIGEE DEVELOPER XR MAMMO UNI ADDL VIEWS LEFT Routine 10/13/2017 1:25 PM APIGEE DEVELOPER Abnormal mammogram XR DXA BONE DENSITY 2 SITES AXIAL Routine 10/16/2009 1:45 PM APIGEE DEVELOPER Screening for Osteoporosis from Last 3 Months or Most Recently Relevant to Health Maintenance Results * (ABNORMAL) LIPID PANEL W REFLEX MEASURED LDL (04/07/2018 9:32 AM CDT) CHOLESTEROL,TOTAL 243(H) 100 - 199 mg/dL 04/07/2018 4:07 PM CDT [facility] TRIGLYCERIDES 165(H) <150 mg/dL 04/07/2018 4:07 PM CDT [facility] HDL CHOLESTEROL 63 >40 mg/dL 8 4:07 PM CDT [facility] NON-HDL CHOLESTEROL 180(H) <145 mg/dl 04/07/2018 4:07 PM CDT [facility] CHOL/HDL RATIO 3.86 <4.50 04/07/2018 4:07 PM CDT [facility] LDL CHOLESTEROL 147(H) <=130 mg/dL 04/07/2018 4:07 PM CDT [facility] PROVIDER ORDERED STATUS RANDOM 04/07/2018 4:07 PM CDT [facility] Blood BLOOD SPECIMEN / Unknown Venipuncture / Unknown 04/07/2018 9:32 AM CDT 04/07/2018 9:32 AM CDT Harriet HARMON [facility]MI[facility] [address] [place] [address], * COLONOSCOPY (12/01/2017 7:59 AM APIGEE DEVELOPER) 12/01/2017 7:59 AM APIGEE DEVELOPER Narrative Transcriptions Rambo Rendon MD - 12/01/2017 9:26 AM CST Patient Name: Regina Vargas Procedure Date: 12/01/2017 Gender: Female Date of : 1955 Admit Type: Outpatient Procedure: Colonoscopy Proceduralist: Rambo Rendon MD , Tiny Banegas (Nurse) Indications/Pre-Op Diagnosis: Last colonoscopy: September 2014, Rectal bleeding, Personal history of colonicpolyps Medications: Fentanyl 200 micrograms IV, Midazolam 6 mgIV Procedure Description: The patient had risks, benefits and alternatives explained to andgave informed consent. The patient had a stable cardiopulmonary status and judged an adequate candidate for conscious sedation. The PCF-Q290AL [id number] was passed through the anus and advanced tothe cecum, identified by appendiceal orifice and ileocecal valve. The PCF-Q290AL [id number] was passed through the and advanced to. The colonoscopy was performed without difficulty. The patient toleratedthe procedure well. The quality of the bowel preparation was good. The ileocecal valve, appendiceal orifice, and rectum were photographed. Complications: No immediate complications. Estimated Blood Loss & Specimen: Estimated blood loss: none. Specimen collected - Yes and sent to Laboratory Findings: The perianal and digital rectal examinations were normal. [Pertinent Negatives]. A 4 mm anal fissure was found 1 cm proximal to the anus. Biopsieswere taken with a cold forceps for histology. Two sessile polyps were found in the rectum. The polyps were 3 mm in size. These polyps were removed with a cold biopsy forceps. Resection and retrieval were complete. The colon (entire examined portion) was moderately redundant.Advancing the scope required withdrawing the scope and replacing with the pediatric colonoscope. The exam was otherwise without abnormality on direct and retroflexion views. Impressions/Post-Op Diagnosis: - Anal fissure. - Two 3 mm polyps in the rectum, removed with a cold biopsy forceps. Resected and retrieved. - Redundant colon. - The examination was otherwise normal on direct and retroflexionviews. Recommendation: - Patient has a contact number available for emergencies. The signsand symptoms of potential delayed complications were discussed with the patient. Return to normal activities tomorrow. Written discharge instructions were provided to the patient. - Resume previous diet. - Continue present medications. - Await pathology results. - Repeat colonoscopy in 5 years for surveillance. Moderate Sedation: Moderate (conscious) sedation was administered by the endoscopy nurse and supervised by the endoscopist. The following parameters were monitored: oxygen saturation, heart rate, respiratory rate, blood pressure, adequacy of pulmonary ventilation and reponse to care. Please refer to the patien'ts medical record flowsheets and nursing notes for moderate sedation details. Total physician intraservice time was 39 minutes. Rambo Rendon MD 12/01/2017 9:26:30 AM This report has been signed electronically. Note Initiated On: 12/01/2017 7:59 AM Procedure Code(s): --- Professional --- 68378, Colonoscopy, flexible; with biopsy, single or multiple Diagnosis Code(s): --- Professional --- K60.2, Anal fissure, unspecified K62.1, Rectal polyp K62.5, Hemorrhage of anus and rectum Z86.010, Personal history of colonicpolyps Q43.8, Other specified congenitalmalformations of intestine CPT copyright 2016 [employer]. All rights reserved. The codes documented in this report are preliminary and upon small appliance assembly supervisor reviewmay be revised to meet current compliance requirements. Scope In: 8:40:27 AM Scope Withdrawal Time 0 hours 13 minutes 16 seconds Scope Out: 9:15:50 AM Rambo Rendon MD PROCEDURE ORD * XR MAMMO UNI ADDL VIEWS LEFT (10/13/2017 1:25 PM APIGEE DEVELOPER) Anatomical Region Laterality Modality BREASTS, Breast Left Mammography Impressions 10/13/2017 1:44 PM APIGEE DEVELOPER ??BI-RADS Category 2: Benign RECOMMENDATION: ??Routine screening. ?? NOTE: ??I discussed today's imaging findings with the patient. Joby Fajardo D.O. Diagnostic Radiologist [email or web address] ?? / ?? Narrative 10/13/2017 1:44 PM APIGEE DEVELOPER ADDITIONAL VIEWS LEFT BREAST, 10/13/2017 CLINICAL HISTORY: ??Recall for further evaluation of an asymmetry in the inferior aspect of the LEFT mid breast on MLO view of screening study, 10/11/2017. ?? TECHNIQUE: ??Spot compression MLO (x 2), ML and spot compression CC views. ?? BREAST COMPOSITION: ??Heterogeneously dense. FINDINGS: ??The asymmetry in the inferior mid LEFT breast on the MLO projection is not reproducible on the spot compression MLO projections or the MLO projection. ??Re-demonstrated is a previously diagnosed cyst at the mid 3 o'clock position of the LEFT breast. ?? Harriet Cabrera PA MAMMO * XR DEXA BONE DENSITY 2 SITES (10/16/2009 1:45 PM APIGEE DEVELOPER) Anatomical Region Laterality Modality Spine, HIPS, HIPL, HIPR Other 10/16/2009 1:45 PM APIGEE DEVELOPER Narrative 10/21/2009 4:01 PM APIGEE DEVELOPER A scan was deleted from the Results section by Irene Gill [[id number]] on 10/21/2009 at 3:57 PM (File: [id number]) Please see scanned document for results of this study. Procedure Note Analy Elias - 10/23/2009 A scan was deleted from the Results section by Irene Gill [[id number]] on10/21/2009 at 3:57 PM (File: [id number]) Please see scanned document for results of this study. [place] Pennington ECHO VASC TECH DEXA from Last 3 Months or Most Recently Relevant to Health Maintenance Advance Directives * Full Code (Latest Code Status on File) Date Activated Date Inactivated Comments 06/23/2023 5:51 AM 06/23/2023 2:28 PM Question Answer Comments Code Status Discussion: Unable to Assess Preferences, Provider to review later * Full Code Date Activated Date Inactivated Comments 04/12/2018 10:55 PM 04/14/2018 1:48 PM Question Answer Comments Code Status Discussion: Not DiscussedPer Advance Care Plan * Full Code Date Activated Date Inactivated Comments 04/12/2018 3:42 PM 04/12/2018 10:55 PM Question Answer Comments Code Status Discussion: Not DiscussedPer Advance Care Plan * Full Code Date Activated Date Inactivated Comments 06/17/2017 11:01 AM 06/17/2017 7:24 PM * Full Code Date Activated Date Inactivated Comments 10/14/2015 4:44 PM 10/17/2015 7:23 PM Care Teams Solid Waste Disposal Manager Relationship Specialty Start Date End Date [place] Gillespie MD [address] [place] [address] PCP - General Family Practice 04/09/19 Angelica Geller MD [address] [place] [id number] Urology Surgery - Colon and Rectal 11/28/17
== END 2024-01-31 08:35 | disposition home or self-care (01) ==
LOC: MRI 08:34
PROVIDERS: PCP Family Medicine; Visit Provider Orthopaedic Surgery Sports Medicine
DX: M25.561 Pain in right knee (principal); S83.221A Peripheral tear of medial meniscus, current injury, right knee, initial encounter; M22.41 Chondromalacia patellae, right knee; M94.261 Chondromalacia, right knee; M25.461 Effusion, right knee
CPT/HCPCS: 73721

== ENCOUNTER 2024-02-10 07:20 | Outpatient (CLI) | payer OTHER, SELFPAY ==
--- NOTE | 2024-02-10 08:17 | W.ANESCHARGE ---
Anesthesia Charges Start Date/Time Anesthesia Start Date: 02/10/24 Anesthesia Start Time: 07:47 Stop Date/Time Anesthesia Stop Date: 02/10/24 Anesthesia Stop Time: 08:15
--- NOTE | 2024-02-10 10:19 | W.ANESCHARGE ---
Anesthesia Charges Start Date/Time Anesthesia Start Date: 02/10/24 Anesthesia Start Time: 07:47 Stop Date/Time Anesthesia Stop Date: 02/10/24 Anesthesia Stop Time: 08:15
== END 2024-02-10 07:21 | disposition home or self-care (01) ==
LOC: OP CLINIC 07:21
PROVIDERS: PCP Family Medicine; Visit Provider Internal Medicine
DX: Z12.11 Encounter for screening for malignant neoplasm of colon (principal); K63.5 Polyp of colon; Z86.010 Personal history of colon polyps; Z80.0 Family history of malignant neoplasm of digestive organs
CPT/HCPCS: 00811; 45380; 88305

== ENCOUNTER 2024-02-13 10:28 | Day surgery (SDC) | payer OTHER, SELFPAY ==
[2024-02-13] VITALS (11 sets, daily range): BP systolic 115–147; BP diastolic 58–84; PULSE 44–65; RESP 14–16; TEMP 36.4–36.9; O2SAT 96–99; BMI 28.0
[2024-02-13] MEDS: LACTATED RINGERS 1000 ML 1,000 ML 100 ML IV (10:35)
[2024-02-13] MEDS: SODIUM CHLORIDE 0.9 % (FLUSH) 10 ML SYRINGE IVF (11:15)
--- NOTE | 2024-02-13 11:19 | W.PM.H&PU ---
History & Physical Update History & Physical Update H&P Reviewed and patient assessed: No changes noted
[2024-02-13] MEDS: CEFAZOLIN 2 GM in 0.9 % SODIUM CHLORIDE Mini-bag 100 ML IVPB (12:00)
--- NOTE | 2024-02-13 12:32 | PM.ORPRC ---
Procedure Note Date of procedure: 02/13/24 Procedure: PREOPERATIVE DIAGNOSIS: 1. Right knee medial meniscus tear POSTOPERATIVE DIAGNOSIS: 1. Right knee medial meniscus tear 2. Right knee medial plica PROCEDURE: 1. Right knee arthroscopic partial medial meniscectomy 2. Right knee arthroscopic limited synovectomy (plica excision) SURGEON: Geoff Ferguson M.D. STAFF REGISTERED NURSE: Clifford Garcia PA-C. Of note, an fish hatchery assistant was critical for this case to aid in patient positioning, knee manipulation, instrument exchange, and closure. ANESTHESIA: Spinal EBL: 2ml TOURNIQUET: 30 min at 300 torr COMPLICATIONS: None evident INDICATIONS: The patient is a pleasant 68-year-old female who has experienced right knee pain particularly with any twisting or turning. Physical exam was concerning for medial meniscus tear, this was confirmed on MRI. Additionally, attempted nonoperative management has been tried, and failed. Thus, surgery was recommended. FINDINGS: Complex tearing posterior horn approaching midbody medial meniscus. The posterior root was intact. 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 Small region of grade 2-3 chondromalacia anterior portion lateral tibial plateau. Otherwise healthy articular cartilage lateral compartment. Patellofemoral compartment showed grade 2 chondromalacia. Plica seen along the medial anterior synovial lining with some indentation in the femur. ACL and PCL were intact robust. Lateral meniscus intact. DESCRIPTION OF PROCEDURE: After a thorough discussion of risks, benefits, and alternatives, the patient was brought to the operating room and placed upon the operating table. Induction of anesthesia was undertaken as previously noted. 2g iv Ancef was administered within 1 hr of incision preoperatively. Appropriate time-out was performed identifying proper patient, site, and procedure. The right lower extremity was prepped and draped in the appropriate sterile fashion using ChloraPrep. The limb was exsanguinated and tourniquet inflated. Anterolateral and anteromedial portals were established with an 11 blade, and a diagnostic arthroscopy was performed. This identified the findings as noted above. Following the diagnostic arthroscopy, and limited synovectomy was including excision of medial plica with motorized shaver. Beyond that, a partial medial menisectomy was performed with the combination of basket forceps and a motorized shaver. Following this, the meniscus was re-probed and found to be stable. Approximately 25 % of the overall meniscus required resection. At this stage, the shaver was reinserted into the suprapatellar pouch and all remaining meniscal debris was evacuated. Instruments were removed, excess fluid was drained, and closure performed with 4-0 Monocryl with Steri-Strips. Dressings were applied, the tourniquet deflated, and the patient was awoken from anesthesia and transferred to the PACU in stable condition. PLAN: 1. Weightbear as tolerated operative extremity. Crutch / walker ambulation assistance PRN. 2. Ice, acetominophen and/or ibuprofen, and oxycodone for pain as needed. 3. Knee range of motion and quad sets/straight leg raise regularly 4. Follow up with PA visit in 1-2 weeks for a wound check and possibly to initiate physical therapy.
[2024-02-13] MEDS: ROPIVACAINE 0.5% 30 ML 150 MG INJECTION (12:35)
--- NOTE | 2024-02-13 12:49 | W.ANESCHARGE ---
Anesthesia Charges Start Date/Time Anesthesia Start Date: 02/13/24 Anesthesia Start Time: 11:44 Stop Date/Time Anesthesia Stop Date: 02/13/24 Anesthesia Stop Time: 12:46
--- NOTE | 2024-02-13 12:52 | W.ANESCHARGE ---
Anesthesia Charges Start Date/Time Anesthesia Start Date: 02/13/24 Anesthesia Start Time: 11:44 Stop Date/Time Anesthesia Stop Date: 02/13/24 Anesthesia Stop Time: 11:46
--- NOTE | 2024-02-13 13:25 | W.ANESCHARGE ---
Anesthesia Charges Start Date/Time Anesthesia Start Date: 02/13/24 Anesthesia Start Time: 11:44 Stop Date/Time Anesthesia Stop Date: 02/13/24 Anesthesia Stop Time: 12:46
== END 2024-02-13 14:30 | disposition home or self-care (01) ==
LOC: OR 10:29
PROVIDERS: PCP Family Medicine; Visit Provider Orthopaedic Surgery Sports Medicine
PROC: (CPT 29870; principal; 2024-02-13 11:45)
DX: S83.231A Complex tear of medial meniscus, current injury, right knee, initial encounter (principal); M67.51 Plica syndrome, right knee
CPT/HCPCS: 29881; 29875; 01400; J0690; J2250; J2704; J2795; J3010; J7120

== ENCOUNTER 2024-03-21 08:00 | Outpatient (RCR) | payer OTHER, SELFPAY ==
--- NOTE | 2024-01-10 14:01 | OT.OPOE ---
OT Outpatient Ortho Eval OT Outpatient Ortho Eval* Start: 01/10/24 13:39 Freq: Status: Active Protocol: Document 01/10/24 13:40 LCN (Rec: 01/10/24 13:49 LCN [id number]) E-signed By Francy Willams, OTR/L, CLT OT OP Ortho Eval Details Complexity Complexity Low Insurance Information Insurance Information [facility] Insurance Information Comments [facility] Outpatient History/Precautions Current Condition/Medical Diagnosis Referring Provider Lauren Noble MD at [facility] Orthopedics/[place] ( PCP Lyudmila Gillespie) Treatment Diagnosis R lateral epicondylitis with mild R carpal tunnel syndrome Date of Onset 12/19/23 Medical Conditions HTN,Arthritis Other Conditions Pt has chronic L trigeminal Neuralgia pn x 5 /2 yrs that is responding some to Cymbalta and Lyrica. (Had procedure 2022 to add cushion/spacer not helpful per pt.) Spinal fusions of C2-C5 and L3/4. Affected by restless legs. L labrum tear of R acetabulum 2016. Bladder sling 207Hysterctomy. Recent increase of A1c from 5.7 - 6.3 , pre diabetic. History of L elbow pain responded well to Protein Rich Plasma injection with Dr. Bowman 7 years ago. I take longer to heal than many people...more swelling, inflammation. Medical/Functional History Medical History Reviewed Yes Prior Level of Function/Mobility Pt lives locally with her in their son's house as they are finishing up on construction of their own new house, likely moving in Feb 15 2024. They have Daughter in [place], 7 grandchildren and 3 great grand children. 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 Social History Employment Status Retired Current Occupation [employer] and finished with Care Coordination Hobbies home building project assist, spnding time with family/ grandchildren Fitness walking 5 d/week with active puppy Ortho Subjective Subjective Subjective Regina Germaine Vargas is an active 68 y/o female who fell onto her right elbow while tangled up with young puppy's leash on 09/19/24. She has been having sharp zingers of pain from the lateral epicondyle but also bouts of hand numbness ( glove/palm) wtih greater intensity since then. She was seen by her primary and also [facility]ics Lauren Noble on 12/19 23 and referred to OP OT to address R ight elbow epicondylitis. Also had EMG study 01/07/24 and found to have mild carpal tunnel syndrome. Has been using wrist velcro brace over night while sleeping since 12/19/23, not making much change so far. Notes pain scales are challenging topic for her since having her chronic neuralgia pain, does better with mild/medium/severe scale. Pt has had no other fractures , accidents or traumas in R UE that she knows of. Pt finds equal help from ice packs and heat/microwave pack, occasional use. Frequently finds herself rubbing her arm. No history of massage or companion caregiver. Seeing [facility] PT for B knee pain as of 12/26/23. Pain Assessment Location R lateral epicondyle Description Burning,Tightness,Pressure, Dull, Achy,Stabbing,With Movement Intensity Moderate Range of Motion and Strength Elbow/Forearm Range of Motion and Strength Elbow/Forearm Range of Motion and Good SH AROM WNL. R Scap is Strength elevated w downward rotation, anterior tilt, with winging of scapula. Hypertonic with trigger points at R upper trap , levator, Sscalnes, narrowed space at rib 1-2 vs clavicle ( pt notes this area will get tight when her arm is acting up) and banded/thick texture at rhomboids (radiates into post delt area with pressure) . MMT of all shoulder planes radiates/pulls into lateral epicondyle, 4/5 MMT with SH ABD and SH ER. 4+/5 Biceps, triceps. MMT 4/5 with pronation, radiates to ECRB area. Spongy edema around the elbow, tricep insert to ECRL. Springy tone and thickness at biceps insert. Point soreness at R lateral epicondyle, extensor muscle bulk, ECU line. Fovea test at [facility] (-) Wrist Range of Motion and Strength Wrist Range of Motion and Strength WNL B wrist AROM EX/FL. Tender pulls up into lateral epicondyle for final passive [address], UD and supination with springy end feel. MMT 5/5 not painful with wrist extension, wr flexion or index finger extension. With UD 4+/[address] 4+/5 aches at ulnar styloid. Moderate pain in R extensor muscle bulk during R valve setter testing in elbow flexion and RISA positions along w 3 pt pinch in pronation. (Pt's L side valve setter /pinch are 1 SD above WNL for her age. R side is > 2 SD BNL for all tests) Hand Pinch/Chief Operator Lock Tender Strength Hand Right Chief Operator Lock Tender Strength Position 1 (lbs) 25 Chief Operator Lock Tender Strength Position 2 (lbs) 27 Lateral Pinch Strength (lbs) 7 Left Chief Operator Lock Tender Strength Position 1 (lbs) 55 Chief Operator Lock Tender Strength Position 2 (lbs) 55 Lateral Pinch Strength (lbs) 16 Three Point Pinch (lbs) 16 Upper Extremity Special Tests Upper Extremity Special Tests Comments Comments (-) Tinel's at R ulnar groove and medial epicondyle (+) Ulnar NN compression/elbow fold x 60 sec, gets whole hand numbness at 35 seconds, recovers in 10 sec. (+) Ulnar Nerve Dynamic testing gets RF/SF numbness in position 4 ( SH ABD at 90, EL FL , WR EX + supination and UD) and lateral elbow pulling to biceps and into palm with pos 1,2,3. (+) Tinel's at CT focal to R thumb/IF (-) R Durkan's Compression. Good muscle tone of R thenar eminence. OT Problems Problems Problems Decreased Strength,Decreased Range of Motion,Pain,Lifting, Gripping,Pinching Problems Comments R arm fatigues easily with scrubbing, sanding motions, driving (with burning, poking pain) and carrying loads. Unable to help with house building chores anymore, leashing her dog with L hand only. Notes she sleeps in prone w R SH abd to 60 ER to 90 and EL flexed, then hand numb and needs to straighten arm to return to sleep fairly easily as hand sx wear off in 1-2 min . Other Problems Writing,Opening Containers, Fasteners,Sleeping Assessment Assessment Assessment Germaine is demonstrating a myriad of symptoms surrounding her R lateral epicondylitis and mild carpal tunnel syndrome, including nerve sensitivity of ulnar nerve above and below elbow, suspected myofascial adhesions of R upper quadrant/ periscapular and R cervical mm with subclavicular space narrowing, scap winging, edema surrounding the elbow with springy end ROM loss, pain with MMT radiating to lateral epicondyle, R valve setter and pinch weakness to 2 SD BNL. These deficits are impacting several daily tasks above and pt will benefit from skilled OT to address these areas. Occupational Therapy Treatment Plan - OP Potential Rehabilitation Potential Good Barriers Barriers to goal attainment history of nerve sensitivity issues, pt reports her healing takes longer than others. Set Goals Goals Set with Patient Yes Goals Goals In 10-12 weeks, Germaine will demonstrate: 1) Decreased pn to <2/10 80% of the time with sustained gripping, carrying groceries, writing and driving. 2) I HEP for stretching, gradual strengthening and self mgmt strategies. 3) improved R valve setter strength to 40# and pinch to 12# with R elbow pain < 1/10. 4) Pt to be fit with functional bracing (for R elbow/soft padded night and possible custom wrist splint for days/driving/heavy tasks) and use adaptive strategies to protect joint integrity to support less pain with ADL. Target Date 04/09/24 Treatment Plan Treatment Plan Evaluation,Edema Control, Iontophoresis,Joint Mobilization,Manual Therapy, Splinting,Ultrasound, Therapeutic Exercise,Self Care /Home Management,Education Expected Frequency 1-2x Week Expected Duration 8-10 Weeks Home Program Home Program Home Program Initiated Home Program Specifics Self manual lymphatic drainage of R UE at axilla to forearm and to axilla/subclavicular drain areas. Issued info to order soft elbow splinting for night time . Recertification Information Recertification Information Initial Certification Date 01/10/24 Recertification Due Date 04/09/24 Provider Signature Shows Agreement With POC & Medical Necessity Physician Comment/Change Comment or Changes Physician NPI Number #
--- NOTE | 2024-01-10 14:02 | OT.OPOE ---
OT Outpatient Ortho Eval OT Outpatient Ortho Eval* Start: 01/10/24 13:39 Freq: Status: Active Protocol: Document 01/10/24 13:40 LCN (Rec: 01/10/24 13:49 LCN [id number]) E-signed By Francy Willams, OTR/L, CLT OT OP Ortho Eval Details Complexity Complexity Low Insurance Information Insurance Information [facility] Insurance Information Comments [facility] Outpatient History/Precautions Current Condition/Medical Diagnosis Referring Provider Lauren Noble MD at [facility]/[place] ( PCP Lyudmila Gillespie) Treatment Diagnosis R lateral epicondylitis with mild R carpal tunnel syndrome Date of Onset 12/19/23 Medical Conditions HTN,Arthritis Other Conditions Pt has chronic L trigeminal Neuralgia pn x 5 /2 yrs that is responding some to Cymbalta and Lyrica. (Had procedure 2022 to add cushion/spacer not helpful per pt.) Spinal fusions of C2-C5 and L3/4. Affected by restless legs. L labrum tear of R acetabulum 2016. Bladder sling 207Hysterctomy. Recent increase of A1c from 5.7 - 6.3 , pre diabetic. History of L elbow pain responded well to Protein Rich Plasma injection with Dr. Bowman 7 years ago. I take longer to heal than many people...more swelling, inflammation. Medical/Functional History Medical History Reviewed Yes Prior Level of Function/Mobility Pt lives locally with her in their son's house as they are finishing up on construction of their own new house, likely moving in Feb 15 2024. They have Daughter in [place], 7 grandchildren and 3 great grand children. 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 Social History Employment Status Retired Current Occupation [employer] and finished with Care Coordination Hobbies home building project assist, spnding time with family/ grandchildren Fitness walking 5 d/week with active puppy Ortho Subjective Subjective Subjective Regina Germaine Vargas is an active 68 y/o female who fell onto her right elbow while tangled up with young puppy's leash on 09/19/24. She has been having sharp zingers of pain from the lateral epicondyle but also bouts of hand numbness ( glove/palm) wtih greater intensity since then. She was seen by her primary and also [facility] Lauren Noble on 12/19 23 and referred to OP OT to address R ight elbow epicondylitis. Also had EMG study 01/07/24 and found to have mild carpal tunnel syndrome. Has been using wrist velcro brace over night while sleeping since 12/19/23, not making much change so far. Notes pain scales are challenging topic for her since having her chronic neuralgia pain, does better with mild/medium/severe scale. Pt has had no other fractures , accidents or traumas in R UE that she knows of. Pt finds equal help from ice packs and heat/microwave pack, occasional use. Frequently finds herself rubbing her arm. No history of massage or daycare worker. Seeing [facility] PT for B knee pain as of 12/26/23. Pain Assessment Location R lateral epicondyle Description Burning,Tightness,Pressure, Dull, Achy,Stabbing,With Movement Intensity Moderate Range of Motion and Strength Elbow/Forearm Range of Motion and Strength Elbow/Forearm Range of Motion and Good SH AROM WNL. R Scap is Strength elevated w downward rotation, anterior tilt, with winging of scapula. Hypertonic with trigger points at R upper trap , levator, Sscalnes, narrowed space at rib 1-2 vs clavicle ( pt notes this area will get tight when her arm is acting up) and banded/thick texture at rhomboids (radiates into post delt area with pressure) . MMT of all shoulder planes radiates/pulls into lateral epicondyle, 4/5 MMT with SH ABD and SH ER. 4+/5 Biceps, triceps. MMT 4/5 with pronation, radiates to ECRB area. Spongy edema around the elbow, tricep insert to ECRL. Springy tone and thickness at biceps insert. Point soreness at R lateral epicondyle, extensor muscle bulk, ECU line. Fovea test at [facility] (-) Wrist Range of Motion and Strength Wrist Range of Motion and Strength WNL B wrist AROM EX/FL. Tender pulls up into lateral epicondyle for final passive [address], UD and supination with springy end feel. MMT 5/5 not painful with wrist extension, wr flexion or index finger extension. With UD 4+/[address] 4+/5 aches at ulnar styloid. Moderate pain in R extensor muscle bulk during R expense analyst testing in elbow flexion and RISA positions along w 3 pt pinch in pronation. (Pt's L side expense analyst /pinch are 1 SD above WNL for her age. R side is > 2 SD BNL for all tests) Hand Pinch/Sample Grinder Strength Hand Right Sample Grinder Strength Position 1 (lbs) 25 Sample Grinder Strength Position 2 (lbs) 27 Lateral Pinch Strength (lbs) 7 Left Sample Grinder Strength Position 1 (lbs) 55 Sample Grinder Strength Position 2 (lbs) 55 Lateral Pinch Strength (lbs) 16 Three Point Pinch (lbs) 16 Upper Extremity Special Tests Upper Extremity Special Tests Comments Comments (-) Tinel's at R ulnar groove and medial epicondyle (+) Ulnar NN compression/elbow fold x 60 sec, gets whole hand numbness at 35 seconds, recovers in 10 sec. (+) Ulnar Nerve Dynamic testing gets RF/SF numbness in position 4 ( SH ABD at 90, EL FL , WR EX + supination and UD) and lateral elbow pulling to biceps and into palm with pos 1,2,3. (+) Tinel's at CT focal to R thumb/IF (-) R Durkan's Compression. Good muscle tone of R thenar eminence. OT Problems Problems Problems Decreased Strength,Decreased Range of Motion,Pain,Lifting, Gripping,Pinching Problems Comments R arm fatigues easily with scrubbing, sanding motions, driving (with burning, poking pain) and carrying loads. Unable to help with house building chores anymore, leashing her dog with L hand only. Notes she sleeps in prone w R SH abd to 60 ER to 90 and EL flexed, then hand numb and needs to straighten arm to return to sleep fairly easily as hand sx wear off in 1-2 min . Other Problems Writing,Opening Containers, Fasteners,Sleeping Assessment Assessment Assessment Germaine is demonstrating a myriad of symptoms surrounding her R lateral epicondylitis and mild carpal tunnel syndrome, including nerve sensitivity of ulnar nerve above and below elbow, suspected myofascial adhesions of R upper quadrant/ periscapular and R cervical mm with subclavicular space narrowing, scap winging, edema surrounding the elbow with springy end ROM loss, pain with MMT radiating to lateral epicondyle, R expense analyst and pinch weakness to 2 SD BNL. These deficits are impacting several daily tasks above and pt will benefit from skilled OT to address these areas. Occupational Therapy Treatment Plan - OP Potential Rehabilitation Potential Good Barriers Barriers to goal attainment history of nerve sensitivity issues, pt reports her healing takes longer than others. Set Goals Goals Set with Patient Yes Goals Goals In 10-12 weeks, Germaine will demonstrate: 1) Decreased pn to <2/10 80% of the time with sustained gripping, carrying groceries, writing and driving. 2) I HEP for stretching, gradual strengthening and self mgmt strategies. 3) improved R expense analyst strength to 40# and pinch to 12# with R elbow pain < 1/10. 4) Pt to be fit with functional bracing (for R elbow/soft padded night and possible custom wrist splint for days/driving/heavy tasks) and use adaptive strategies to protect joint integrity to support less pain with ADL. Target Date 04/09/24 Treatment Plan Treatment Plan Evaluation,Edema Control, Iontophoresis,Joint Mobilization,Manual Therapy, Splinting,Ultrasound, Therapeutic Exercise,Self Care /Home Management,Education Expected Frequency 1-2x Week Expected Duration 8-10 Weeks Home Program Home Program Home Program Initiated Home Program Specifics Self manual lymphatic drainage of R UE at axilla to forearm and to axilla/subclavicular drain areas. Issued info to order soft elbow splinting for night time . Recertification Information Recertification Information Initial Certification Date 01/10/24 Recertification Due Date 04/09/24 Provider Signature Shows Agreement With POC & Medical Necessity Physician Comment/Change Comment or Changes Physician NPI Number #
== END 2024-07-19 23:59 | disposition home or self-care (01) ==
PROVIDERS: PCP Family Medicine; Visit Provider Orthopaedic Surgery
DX: M77.11 Lateral epicondylitis, right elbow (principal); Z51.89 Encounter for other specified aftercare
CPT/HCPCS: 97035; 97110; 97140; 97165; 97535; X5282

== ENCOUNTER 2024-03-21 13:45 | Outpatient (RCR) | payer OTHER, SELFPAY ==
--- NOTE | 2024-03-09 11:48 | PT.OPE ---
PT [facility] Outpatient Eval PT [facility] Outpatient Eval Start: 03/09/24 07:53 Freq: Status: Active Protocol: Document 03/09/24 07:54 ENM (Rec: 03/09/24 09:00 ENM [id number]) E-signed By Sherice Ayala, DPT Physical Therapy Outpatient Evaluation Insurance Information Recert Due Date 06/07/24 Insurance Name Medicare B Medical Diagnosis right arthroscopic partial medial meniscectomy right knee arthroscopic limited synovectomy (plica excision) DOS 02/13/24 Treating Diagnosis right knee pain, decreased knee ROM, impaired gait, impaired balance, swelling, decreased knee strength Referring MD Garcia Subjective Subjective Patient presents to PT almost 4 weeks s/p right arthroscopic partial medial meniscectomy and limited synovectomy plica excision DOS 02/13/24. Prior to surgery she had a lot of burning to the medial knee and swelling. It was painful to walk. The first couple of weeks it felt ok. Yesterday she was walking and it caught. She is still having lots of swelling and burning of the knee. Sitting in a chair or lowering herself down onto a toilet can be excruciating. Has not been doing any exercising since surgery. Has been icing regularly. Sleeping at night can be uncomfortable due to the pressure on her knee. She is having to take the steps one at a time right now. When it started: 6 months ago Describes it as: burning Severity: mod Irritability: mod Imaging showed Complex tearing posterior horn approaching midbody medial meniscus. PMHx: HTN, multiple orthopedic surgeries including hip labral repair, cervical fusion Pain Comments at its best: 10 at its worse: 8-07/26 easing: aleve aggravating: bending the knee, sitting to stand Current Work Status Retired Preferred Name raúl Objective Other/Pertinent Objective Knee ROM L 2-0-131 R 0-4-97 hip ROM log roll WNL no pain Strength: quad set fair SLR needing Edna to complete with 5-10 deg extensor lag present gait/balance: Patient ambulates with decreased knee extension, decreased stance time of RLE, stiffness throughout the knee with antalgic gait pattern palpation/joint mobility: Patient tender to palpation along medial joint line Swelling/observation: superior patella: L 43 R 46 cm mid patella: L 41.5 cm R 43.5 cm inf patella: L 38 R 40 cm 2 incision ports have healed well Assessment Assessment/Impression Patient presents to PT for evaluation almost 4 weeks s/p right arthroscopic partial medial meniscectomy and limited synovectomy plica excision DOS 02/13/24. She was doing ok initially after surgery but continues to have knee pain and swelling that is limiting her mobility. Weight bearing activities involving knee flexion such as sit to stands are still limited and painful after surgery. Pains range from 4-10/10. Upon assessment patient displays decreased knee ROM, impaired gait, impaired transfers, decreased quad strength and swelling. Impairments consistent with s/ p knee surgery. Raúl would benefit from skilled PT to address impairments stated above in order to perform all functional and recreational activities without significant difficulty or discomfort for return to PLOF. Plan of Care Rehabilitation Potential Good Physical Therapy Goals In 6-8 visits: 1. Patient will improve knee ROM to at least 115 degs for improved ease of transfers 2. Patient will perform the stairs with step through mechanics to navigate home environment 3. Patient will be able to play with her grandkids with 3 /10 or less knee pain during or after 4. Patient will be able to walk up to 10 minutes with normal mechanics and without report of increased knee pain 5. Patient will display improve global hip and knee strength to at least 4/5 to participate in recreational activities without difficulty Coordination/Communication With Referral Source Treatment Plan/Direct Interventions Gait Training,Ice/Cold/ Vasopneumatic,Joint Mobilization,Manual Therapy, Neuromuscular Re-ed,Self-Care/ Home Management,Therapeutic Activities,Therapeutic Exercises Frequency/Duration 1x a week for 6-8 visits Patient Will Be Discharged From Therapy Completion of LTG(s), Independent w/HEP Evaluation Billing Untimed Code Treatment Minutes 27 Complexity Low Certification Information Initial Certification Date 03/09/24 Ending Certification Date 06/07/24 Provider Signature Shows Agreement With POC & Medical Necessity Physician Signature & Date Requested Please Sign/Date Here Physician Comment/Change : Physician NPI Number #
== END 2024-06-21 10:51 | disposition home or self-care (01) ==
PROVIDERS: PCP Family Medicine; Visit Provider Physician Assistant Surgical
DX: Z98.890 Other specified postprocedural states (principal); Z51.89 Encounter for other specified aftercare
CPT/HCPCS: 97110; 97140; 97161

== ENCOUNTER 2024-05-16 07:30 | Outpatient (CLI) | payer OTHER, SELFPAY ==
--- OUTSIDE RECORDS SUMMARY | 2024-05-16 13:25 | XMS_ITS | Continuity of Care Document ---
Author Organization [facility] Address [address] [place] [address] Phone Care Team Providers Care Power Plant Superintendent Name Role Phone Naeem Virk Unavailable Unavaila [...] Allograft, Spine Surg, Morselized Pa Arthdsis Post/Posterolatrl/Postinterb srekeanth Lumbar Remove Intraspinal Lesion, Lumbar Remove Intraspinal Lesion, Lumbar Pa Assist Insert Spine Fixation, Posteri or Pa Assist Apply Spinal Prosthetic Device Office/Outpatient Visit,New, [facility] [place] 2014 X-Ray Exam Lwr Spine, Min 4 Views Advance Directives Directive Yes / No Effective Date File Name No Information Encounters Encounter Description Practice Location Reason(s) For Visit Diagnoses Date Provider Providers Copied on Encounter [facility], [address], [place], [place], [id number] , [place] tel:[phone] [facility] No Information 7 Padmaja Fengolas. [facility], [address], [place], [address], [place]. tel:[phone] [facility], [address], [place], [place], [id number] , [place] tel: [phone] [facility] Arthrodesis statusEncount er for other specified surgical aftercare 6 Giang Naeem. [facility], [address], [place], [address], [place]. tel:[phone] Referring Provider: Chele Holloway, [address], [place], [address]. tel:[phone] [facility], [address], [place], [place], [id number] , [place] tel:[phone] [facility] Arthrodesis statusEncount er for other specified surgical aftercare 6 Giang Naeem. [facility], [address], [place], [address], [place]. tel:[phone] Referring Provider: Chele Holloway, [address], [place], [address]. tel:[phone] [facility], [address], [place], [id number] , [place] tel:[phone] [facility] No Information 6 Transfeldt Ensor. [facility], [address], [place], [place], [id number], [place]. tel:[phone] [facility], [address], [place], [place], [id number] , tel:[phone] [facility] No Information 5 Transfeldt Ensor. [facility], [address] [place] [address], [address], [id number], [place]. tel:[phone] Referring Provider: Chele Holloway, [employer] [address], [place], [address]. tel:[phone] [facility], [address], [place], [place], [id number] , [place] [phone] [facility] Spinal stenosis, lumbar regionSpondyl olisthesis, lumbar region 5 Padmaja Hartley. [address], [place], [address], [place]. tel:[phone] Referring Provider: Klaus Herndon, [facility] [address], [address], [address]. tel:[phone] Office/Outpa tient Visit,[facility], [address], [place], [place], [id number] , [place] [phone] [facility] Spinal stenosis, lumbar regionSpondyl olisthesis, lumbar region 5 Transfeldt Ensor. [facility], [address] [place] [address], [address], [id number], [place]. tel:[phone] Referring Provider: Chele Holloway, [employer] [address], [address]. tel:[phone] Family History Family Member Type Diagnosis Age At Onset Problem (finding) Problem (finding) Problem (finding) Problem (finding) Problem (finding) Problem (finding) Problem (finding) Payers Payer name Insurance type Covered constitution party ID Authoriza tion(s) No Information Social History [...] Radiology Order Joan mbosacral Min. 4 Views ([id number]), Ordered on: Ordered History Of Present Illness Encounter Date Complaint History Of Prese nt Illness No Information Functional Status Date Functional Assessmen t No Information Instructions Date Instruction Additional Infor mation No Information Assessments Type Assessment Date No Information Patient Care Teams Name Effective Dates (start - stop) Status Members No Information
--- OUTSIDE RECORDS SUMMARY | 2024-05-16 13:26 | XMS_ITS | Referral Summary ---
Author Organization [facility] Address [address] [place] [address]. [place] [address] Care Team Providers Care Production Operator Name Role Phone Charlotte Gillespie MD Primary [...] on file Medical Devices Implanted Type Area Leno Sewer Device Identifier Shelf Expiration Date Model / Serial / Lot Mesh Sling Prolapse Polyform Synth [id number] - [id number] Implanted:Qty: 1 on 12/28/2021 by Ria Kim MD at [facility] Mesh N/A: Pelvis [employer] 11/16/2024 [id number] / / [id number] Mesh Sling Advantage Fit System [id number] - [id number] Implanted:Qty: 1 on 12/28/2021 by Ria Kim MD at [facility] Mesh N/A: Pelvis [employer] 11/30/2024 [id number] / / [id number] Advance Directives For more information, please contact: [phone] * Full Code (Latest Code Status on File) Date Activated Date Inactivated Comments 12/28/2021 1:25 PM 12/29/2021 5:29 PM All basic an d advanced life-sustaining interventions are performed as appropriate Question Answer Comments Code status determined by: Discussion with lisa steiner/ legal decision maker Care Teams Production Operator Relationship Specialty Start Date End Date Charlotte Gillespie MD [facility] [address] [place] [address] PCP - General Family Medicine 12/09/21
--- OUTSIDE RECORDS SUMMARY | 2024-05-16 13:26 | XMS_ITS | Clinical Summary ---
Author Organization [facility] Address [address] [place] [address]. [place] [address] Care Team Providers Care Wood Boatbuilder Name Role Phone Charlotte Gillespie MD Primary [...] - 2023-24 season) 2023 07/31/2021, 01/13/2021, 12/23/2020 PHQ-2 (once per calendar year) 2023 INFLUENZA VACCINE (#1) 2024 , 08/13/2020, 08/13/2020, Additional history exists DTAP/TDAP/TD IMMUNIZATION (4 - Td or Tdap) [...] this topic Medical Devices Implanted Type Area Correspondence Review Clerk Device Identifier Shelf Expiration Date Model / Serial / Lot Mesh Sling Prolapse Polyform Synth [id number] - [id number] Implanted:Qty: 1 on 12/28/2021 by Ria Kim MD at [facility] Mesh N/A: Pelvis [employer] 11/16/2024 [id number] / / [id number] Mesh Sling Advantage Fit System [id number] - [id number] Implanted:Qty: 1 on 12/28/2021 by Ria Kim MD at [facility] Mesh N/A: Pelvis [employer] 11/30/2024 [id number] / / [id number] Advance Directives For more information, please contact: [phone] * Full Code (Latest Code Status on File) Date Activated Date Inactivated Comments 12/28/2021 1:25 PM 12/29/2021 5:29 PM All basic an d advanced life-sustaining interventions are performed as appropriate Question Answer Comments Code status determined by: Discussion with lisa nt/ legal decision maker Care Teams Wood Boatbuilder Relationship Specialty Start Date End Date Charlotte Gillespie MD [facility] & [address] [address] PCP - General Family Medicine 12/09/21
--- OUTSIDE RECORDS SUMMARY | 2024-05-16 13:26 | XMS_ITS | Clinical Summary ---
Author Organization [employer] [facility] Address [place], [place] [address] Care Team Providers Care Crossbar Frame Wirer Name Role Phone Angelica Geller MD Unavailable [phone] Charlotte Gillespie MD Primary Care Provider + [...] Overview: Added automatically from request for surgery [id number] Chronic fatigue 05/27/2017 Constipation by delayed colonic [...] 3 for cervical disks 03/25/2008 05/28/2013 Overview: 1998 discectomy 1999 C5-6 fusion (ACDF) [...] Outcome GA Total Labor Labor/2nd/3rd Weight Sex Type Anes PTL Maddi A1 A5 Name Clin 1978 Term Vag 1979 Term Vag Comments [...] booster 08/17/2021 08/17/2011, 03/17 ([facility] Colonoscopy through age 75 12/01/202212/01, 12/01/2017, 09/20/2014, Additional history exists Lipids for age 45-75 04/07/2023 04/07/2018, 12/26/2014, 04/27/2011, Additional history exists COVID-19 vaccine series ( season) 2023 07/31/2021, 01/13/2021, 12/23/2020 BMI (ht and wt on same day) for age 18+ 03/02/2024 03/02/2023, 04/09/2019, 10/20/2018, Additional history exists Influenza for age 65+ 06/17/2024 08/14/2018 , 07/06/2017, 07/31/2016, Additional history exists Tdap Completed 08/17/2011 Medical Devices Implanted Type Area Air Export Operations Agent Device Identifier Shelf Expiration Date Model / Serial / Lot Chang Lmbr 40x5.5mm Tsrh 3d Cvd Titnm - [id number] Implanted:Qty: 1 on 10/14/2015 by Klaus Mercado MBChB at [facility] Spine Implants N/A: Spine Medtronic Spine/Ortho [id number] # / / [id number] 60cc Mtf Crushed Canclls [[id number]] Implanted:Qty: 1 on 10/14/2015 by Klaus Mercado MBChB at [facility] Explanted:at [facility] (Quantity not on file) N/A: Spine Musculoskeletal Transplant 06/11/2018 [id number]# / [id number] / Spacer Lmbr [id number] [place] Vb Tlif Peek - [id number] Implanted:Qty: 1 on 10/14/2015 by Klaus Mercado MBChB at [facility] N/A: Spine Medtronic Spine/Ortho [id number] # / / [id number] Set Screw Lmbr Tsrh 3dx - [id number] Implanted:Qty: 4 on 10/14/2015 by Klaus Mercado MBChB at [facility] N/A: Spine Medtronic Spine/Ortho [id number] # / / Cnnctr Lmbr Sm Tsrh 3dx Offsettitnm - [id number] Implanted:Qty: 4 on 10/14/2015 by Klaus Mercado MBChB at [facility] N/A: Spine Medtronic Spine/Ortho [id number] # / / Screw Lmbr Post 6.5x40mm Tsrh 3dx Og Thin Va - [id number] Implanted:Qty: 4 on 10/14/2015 by Klaus Mercado MBChB at [facility] N/A: Spine Medtronic Spine/Ortho [id number]# / / Chang Lmbr 45x5.5mm Tsrh 3d Cvd Titnm - [id number] Implanted:Qty: 1 on 10/14/2015 by Klaus Mercado MBChB at [facility] N/A: Spine Medtronic Spine/Ortho [id number] # / / Plate Cerv 1lvl 23mm [place] Vision Elite Ant - [id number] Implanted:Qty: 1 on 04/12/2018 by Fitz Rojas MD at [facility] N/A: Spine Medtronic Spine/Ortho [id number] # / / [id number] Cornerstone Acc Implanted:Qty: 1 on 04/12/2018 by Fitz Rojas MD at [facility] Explanted:at [facility] (Quantity not on file) N/A: Spine Medtronic Spine/Ortho 09/12/2020 [id number]# / [id number] / [id number] 1cc Converse Plus Paste Dbm Implanted:Qty: 1 on 04/12/2018 by Fitz Rojas MD at [facility] Explanted:at [facility] (Quantity not on file) N/A: Spine Medtronic Spine/Ortho 11/01/2019 [id number]# / [id number] / Screw Cerv Ant 4x14mm [employer] Va Slf Tppng - [id number] Implanted:Qty: 4 on 04/12/2018 by Fitz Rojas MD at [facility] N/A: Spine Medtronic Spine/Ortho [id number] # / / Procedures Procedure Name Priority Date/Time Associated Diagnosis Comments LIPID PANEL W REFLEX MEASURED LDL Routine 04/07/2018 9:32 AM CDT Screening cholesterol level COLONOSCOPY 12/01/2017 7:59 AM ORAL AND MAXILLOFACIAL SURGEON XR MAMMO UNI ADDL VIEWS LEFT Routine 10/13/2017 1:25 PM ORAL AND MAXILLOFACIAL SURGEON Abnormal mammogram XR DXA BONE DENSITY 2 SITES AXIAL Routine 10/16/2009 1:45 PM ORAL AND MAXILLOFACIAL SURGEON Screening for Osteoporosis from Last 3 Months or Most Recently Relevant to Health Maintenance Results * (ABNORMAL) LIPID PANEL W REFLEX MEASURED LDL (04/07/2018 9:32 AM CDT) CHOLESTEROL,TOTAL 243(H) 100 - 199 mg/dL 04/07/2018 4:07 PM CDT [facility] [employer] [facility] TRIGLYCERIDES 165(H) <150 mg/dL 04/07/2018 4:07 PM CDT [facility] HDL CHOLESTEROL 63 >40 mg/dL 8 4:07 PM CDT [facility] NON-HDL CHOLESTEROL 180(H) <145 mg/dl 04/07/2018 4:07 PM CDT [facility] CHOL/HDL RATIO 3.86 <4.50 04/07/2018 4:07 PM CDT [facility] LDL CHOLESTEROL 147(H) <=130 mg/dL 04/07/2018 4:07 PM CDT [facility] TRAL LABORATORY PROVIDER ORDERED STATUS RANDOM 04/07/2018 4:07 PM CDT [facility] TRA LABORAT[facility] Blood BLOOD SPECIMEN / Unknown Venipuncture / Unknown 04/07/2018 9:32 AM CDT 04/07/2018 9:32 AM CDT Harriet HARMON CHEMISTRY [facility] [address] [place] [address], [place] * COLONOSCOPY (12/01/2017 7:59 AM ORAL AND MAXILLOFACIAL SURGEON) 12/01/2017 7:59 AM ORAL AND MAXILLOFACIAL SURGEON Narrative Transcriptions Rambo Rendon MD - 12/01/2017 [...] adequate candidate for conscious sedation. The PCF-Q290AL [id number] was passed through the anus and advanced tothe cecum, identified by appendiceal orifice and ileocecal valve. The PCF-Q290AL [id number] was passed through the and advanced to. [...] 7:59 AM Procedure Code(s): --- Professional --- 70060, Colonoscopy, flexible; with biopsy, single or multiple Diagnosis Code(s): --- Professional --- K60.2, Anal fissure, unspecified K62.1, Rectal polyp K62.5, Hemorrhage of anus and rectum Z86.010, Personal history of colonicpolyps Q43.8, Other specified congenitalmalformations of intestine CPT copyright 2016 [employer]. All rights reserved. The codes documented in this report are preliminary and upon research associate molecular biology reviewmay be revised to meet current compliance requirements. Scope In: 8:40:27 AM Scope Withdrawal Time 0 hours 13 minutes 16 seconds Scope Out: 9:15:50 AM Rambo Rendon MD PROCEDURE ORD * XR MAMMO UNI ADDL VIEWS LEFT (10/13/2017 1:25 PM ORAL AND MAXILLOFACIAL SURGEON) Anatomical Region Laterality Modality BREASTS, Breast Left Mammography Impressions 10/13/2017 1:44 PM ORAL AND MAXILLOFACIAL SURGEON ??BI-RADS Category 2: Benign RECOMMENDATION: ??Routine screening. ?? NOTE: ??I discussed today's imaging findings with the patient. Joby Fajardo D.O. Diagnostic Radiologist [email or web address] ?? / ?? Narrative 10/13/2017 1:44 PM ORAL AND MAXILLOFACIAL SURGEON ADDITIONAL VIEWS LEFT BREAST, 10/13/2017 CLINICAL HISTORY: [...] BONE DENSITY 2 SITES (10/16/2009 1:45 PM ORAL AND MAXILLOFACIAL SURGEON) Anatomical Region Laterality Modality Spine, HIPS, HIPL, HIPR Other 10/16/2009 1:45 PM ORAL AND MAXILLOFACIAL SURGEON Narrative 10/21/2009 4:01 PM ORAL AND MAXILLOFACIAL SURGEON A scan was deleted from the Results section by Irene Gill [[id number]] on 10/21/2009 at 3:57 PM (File: [id number]) Please see scanned document for results of this study. Procedure Note Analy Elias - 10/23/2009 A scan was deleted from the Results section by Irene Gill [[id number]] on10/21/2009 at 3:57 PM (File: [id number]) Please see scanned document for results of this study. Jamaica Pennington NP DEXA from Last 3 Months or Most [...] 4:44 PM 10/17/2015 7:23 PM Care Teams Crossbar Frame Wirer Relationship Specialty Start Date End Date Charlotte Gillespie MD [address] [place] [address] PCP - General Family Practice 04/09/19 Angelica Geller MD [address] [place] [address] [address] [place] [address] Urology Surgery - Colon and Rectal 11/28/17
== END 2024-05-16 07:31 | disposition home or self-care (01) ==
LOC: NFLDREF 13:23
PROVIDERS: PCP Family Medicine; Referring Provider Family Medicine; Visit Provider Family Medicine
DX: E78.5 Hyperlipidemia, unspecified (principal); R73.03 Prediabetes
CPT/HCPCS: 80061

== ENCOUNTER 2024-08-21 10:22 | Outpatient (CLI) | payer OTHER, SELFPAY ==
--- OUTSIDE RECORDS SUMMARY | 2024-08-21 10:26 | XMS_ITS | Clinical Summary ---
Author Organization [employer] [facility] Address [place], [place] [address] Care Team Providers Care Chief Of Police Name Role Phone Angelica Geller MD Unavailable [phone] Charlotte Gillespie MD Primary Care Provider + Allergies Active Allergy Reactions Criticality Noted Date Comments Carbamazepine Hives,*Unknown - Follow up needed High 02/27/2020 Mirtazapine Hives 12/18/2021 Weight gain Trazodone Nightmares 12/18/2021 nightmares Zolpidem Nightmares 12/18/2021 nightmares Medications Medication Sig Dispensed Refills Start Date End Date Status cetirizine (ZYRTEC) 10 mg tablet Take 1 tablet by mouth once daily. 0 03/29/2011 Active estradiol (ESTRACE) 0.5 mg tablet Take 0.5 mg by mouth once daily. 04/01/2019 Active lisinopriL (PRINIVIL; ZESTRIL) 10 mg tablet Take 10 mg by mouth once daily. 02/11/2023 Active pregabalin (LYRICA) 50 mg capsuleIndicatio ns:Trigeminal neuralgia of left side of face Take 2 Capsules (100 mg) by mouth two times daily. 120 Capsule 1 08/15/2024 Active DULoxetine (CYMBALTA) 20 mg Delayed-release capsuleIndicatio ns:Trigeminal neuralgia of left side of face Take 1 Capsule (20 mg) by mouth two times daily. 60 Capsule 1 08/15/2024 Active DULoxetine (CYMBALTA) 20 mg Delayed-release capsuleIndicatio ns:Other constipation,Tro chanteric bursitis, right hip,Foot pain, right,Lumbar radicular pain,Hip pain, right Take 1 capsule by mouth 2 times daily. 180 capsule 5 12/14/2017 4 Discontinued (Other - add note to specify (E-cancel not sent)) polyethylene glycol (MIRALAX; GLYCOLAX) 17 g per packet packet Mix 1 Packet in liquid then take by mouth once daily if needed for Constipation. 4 Discontinued (*Med complete/Reg imen complete/Lev el of care change) pregabalin (LYRICA) 150 mg capsule Take 150 mg by mouth two times daily. 4 Discontinued (*Medication adjustment) oxyCODONE (ROXICODONE) 5 mg immediate release tabletIndication s:Trigeminal neuralgia of left side of face Take 1 Tablet (5 mg) by mouth every 6 hours if needed for Pain. 10 Tablet 06/27/2023 4 Discontinued (*Med complete/Reg imen complete/Lev el of care change) dexAMETHasone (DECADRON) 2 mg tabletIndication s:Trigeminal neuralgia of left side of face Take 1 Tablet (2 mg) by mouth three times daily with meals. 90 Tablet 08/03/2023 4 Discontinued (*Med complete/Reg imen complete/Lev el of care change) methylPREDNISolo ne (Medrol, Mauricio,) 4 mg tabletIndication s:Trigeminal neuralgia of left side of face Take by mouth as instructed per packaging. Take with food. 21 Tablet 11/09/2023 4 Discontinued (*Med complete/Reg imen complete/Lev el of care change) Hospital, Clinic, or Other Facility Administered Medication Ordered Dose Route Frequency Start Date End Date Status betamethasone acet,sod phos 9 mg injection (CELESTONE SOLUSPAN)Indications:Arthr itis of right shoulder region,Right shoulder tendonitis 9 mg IArtic ONE TIME 08/09/2024 08/09/2024 Ended betamethasone acet,sod phos 3 mg injection (CELESTONE SOLUSPAN)Indications:Tendo nitis of upper biceps tendon of right shoulder 3 mg IArtic ONE TIME 08/09/2024 08/09/2024 Ended Active Problems Problem Noted Date Diagnosed Date Presbyopia 09/26/2020 Regular astigmatism of both eyes 09/26/2020 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 Nuclear senile cataract of both eyes 09/26/2020 Cervical stenosis of spine 04/10/2018 Insomnia due to medical condition 06/16/2017 Pelvic mass in female 06/01/2017 Overview (06/01/2017): Added automatically from request for surgery [id number] Chronic fatigue 05/27/2017 Constipation by delayed colonic transit 10/14/20 15 Lumbar radicular pain 07/25/2015 Adenomatous colon polyp 09/23/2014 Overview (12/02/2017): Colonoscopy 09/2014 Polyp repeat in 5 years Colonoscopy 11/2017 fissure, repeat in 5 years Cervical facet joint syndrome 08/15/2013 Pulmonary nodules 12/07/2010 Overview (12/07/2010): repeat CT 11/2010 S/P C3-4, C4-5, and C5-6 spinal fusion 0 Vitamin D deficiency 12/02/2009 Family history of malignant neoplasm of gastrointestinal tract 05/30/2009 Overview (05/30/2009): Colonoscopy 05/2009 normal repeat in 5 years Enthesopathy of ankle and tarsus, unspecified Resolved Problems Problem Noted Date Diagnosed Date Resolved Date Cervical radicular pain 05/28/201303/17 Spinal stenosis from facet joint cyst 12/16/2011 03/29/2018 Neck surgery x 3 for cervical disks 03/25/2008 05/28/2013 Overview (03/25/2008): 1999 discectomy 1999 C5-6 fusion (ACDF) 2004 C3-5 ACDF Cervicalgia 05/28/2013 Encounters Date Type Department Care Team Description 08/15/2024 10:30 AM CDT [facility] [address] [address] Ida Orta PA Telehealth (Left trigeminal nerve pain.) 08/15/2024 Travel 08/09/2024 7:20 AM CDT Procedure Only [facility] [address] [place] [address] Chele Bowman MD Procedure (Ultrasound guided injection rig... 08/08/2024 Travel 08/01/2024 7:45 AM CDT Procedure Only [facility] [address] [place] [address] Chele Bowman MD Procedure (Right common extensor tendon [place]... 07/31/2024 Travel 07/27/2024 11:20 AM CDT Office Visit [facility] [address] [place] [address] Chele Bowman MD Musculoskeletal Problem (Consult right elbow pain discuss possible PRP (platelet rich plasma)) 07/27/2024 Travel 07/12/2024 Transcribe Orders [facility] [address] [facility] [address] Geoff Ferguson MD from Last 3 Months Immunizations Name Administration [...] Answer Date Recorded PHQ-2 Score 2 12/16/2018 Sex and Gender Information Value Date Recorded [...] Sign Reading Time Taken Comments Blood Pressure 128/70 08/09/2024 7:24 AM CDT Pulse 67 08/09/2024 7:24 AM CDT Temperature 36.6 ??C (97.8 ??F) 08/09/2024 7:24 AM CD T Respiratory Rate 12 06/23/2023 11:15 AM CDT Oxygen Saturation 99% 08/09/2024 7:24 AM CDT Inhaled Oxygen Concentration - - Weight 82.3 kg (181 lb 8 oz) 06/23/2023 6:23 AM CDT Height 170.2 cm (5' 7) 06/23/2023 6:23 AM CDT Body Mass Index 28.43 06/23/2023 6:23 AM CDT Plan of Treatment Scheduled Procedures Name Priority Associated Diagnoses Date/Ti me TRIGEMINAL RHIZOTOMY Trigeminal neuralgia of left side of face Health Maintenance Due Date Last Done Comments [...] booster 08/17/2021 08/17/2011, 03/17 (Completed outside of [facility]) Colonoscopy through age 75 12/01/202212/01, 12/01/2017, 09/20/2014, Additional history exists Lipids for age 45-75 04/07/2023 04/07/2018, 12/26/2014, 04/27/2011, Additional history exists BMI (ht and wt on same day) for age 18+ 03/02/2024 03/02/2023, 04/09/2019, 10/20/2018, Additional history exists COVID-19 vaccine series ( season) 2024 11/24/2023, 07/31/2021, 01/13/2021, Additional history exists Influenza for age 65+ 06/17/2024 08/14/2018 , 07/06/2017, 07/31/2016, Additional history exists Tdap Completed 08/17/2011 Medical Devices Implanted Type Area Burn Nurse Device Identifier Shelf Expiration Date Model / Serial / Lot Chang Lmbr 40x5.5mm Tsrh 3d Cvd Titnm - [id number] Implanted:Qty: 1 on 10/14/2015 by Klaus Mercado MBChB at [facility] Spine Implants N/A: Spine Medtronic Spine/Ortho [id number] # / / [id number] 60cc Mtf Crushed Canclls [[id number]] Implanted:Qty: 1 on 10/14/2015 by Klaus Mercado MBChB at [facility] Explanted:at [facility] (Quantity not on file) N/A: Spine Musculoskeletal Transplant 06/11/2018 [id number]# / [id number] / Spacer Lmbr [id number] [place] Vb Tlif Peek - [id number] Implanted:Qty: 1 on 10/14/2015 by Klaus Mercado MBChB at [facility] N/A: Spine Medtronic Spine/Ortho [id number] # / / [id number] 7 Set Screw Lmbr Tsrh 3dx - [id number] Implanted:Qty: 4 on 10/14/2015 by Klaus Mercado MBChB at [facility] N/A: Spine Medtronic Spine/Ortho [id number] # / / Cnnctr Lmbr Sm Tsrh 3dx Offsettitnm - [id number] Implanted:Qty: 4 on 10/14/2015 by Klaus Mercado MBChB at [facility] N/A: Spine Medtronic Spine/Ortho [id number] # / / Screw Lmbr Post 6.5x40mm Tsrh 3dx Og Thin Va - [id number] Implanted:Qty: 4 on 10/14/2015 by Klaus Mercado MBChB at [facility] N/A: Spine Medtronic Spine/Ortho [id number]# / / Chang Lmbr 45x5.5mm Tsrh 3d Cvd Titnm - [id number] Implanted:Qty: 1 on 10/14/2015 by Klaus Mercado MBChB at [facility] N/A: Spine Medtronic Spine/Ortho [id number] # / / Plate Cerv 1lvl 23mm [place] Vision Elite Ant - [id number] Implanted:Qty: 1 on 04/12/2018 by Fitz Rojas MD at [facility] N/A: Spine Medtronic Spine/Ortho [id number] # / / [id number] [employer] Acc Implanted:Qty: 1 on 04/12/2018 by Fitz Rojas MD at [facility] Explanted:at [facility] (Quantity not on file) N/A: Spine Medtronic Spine/Ortho 09/12/2020 [id number]# / [id number] / [id number] 1cc Jayden Plus Paste Dbm Implanted:Qty: 1 on 04/12/2018 by Fitz Rojas MD at [facility] Explanted:at [facility] (Quantity not on file) N/A: Spine Medtronic Spine/Ortho 11/01/2019 [id number] / [id number] / Screw Cerv Ant 4x14mm Atlantistranslational Va Slf Tppng - [id number] Implanted:Qty: 4 on 04/12/2018 by Fitz Rojas MD at [facility] N/A: Spine Medtronic Spine/Ortho [id number] # / / Procedures Procedure Name Priority Date/Time Associated Diagnosis Comments BEDSIDE US STUDY ARCHIVE Routine 08/09/2024 11:49 AM CDT Arthritis of right shoulder region Right shoulder tendonitis BEDSIDE US STUDY ARCHIVE Routine 08/01/2024 10:07 AM CDT Lateral epicondylitis, right elbow Chronic elbow pain, right LIPID PANEL W REFLEX MEASURED LDL Routine 04/07/2018 9:32 AM CDT Screening cholesterol level COLONOSCOPY 12/01/2017 7:59 AM PIPELINE DISPATCH OPERATOR XR MAMMO UNI ADDL VIEWS LEFT Routine 10/13/2017 1:25 PM PIPELINE DISPATCH OPERATOR Abnormal mammogram XR DXA BONE DENSITY 2 SITES AXIAL Routine 10/16/2009 1:45 PM PIPELINE DISPATCH OPERATOR Screening for Osteoporosis from Last 3 Months or Most Recently Relevant to Health Maintenance Results * BEDSIDE US STUDY ARCHIVE (08/09/2024 11:49 AM CDT) Narrative Ayesha Silva - 08/09/2024 11:49 AM CDT The patient was seen for ultrasound guided injection by Dr. Chele Bowman. Ultrasound was not used for diagnostic purposes, but to guide the needle placement and document the position of the injection. ?? See patient's EPIC encounter for the detail of the procedure; see BRAD for saved images of the injection. Chele Bowman MD PROCEDURE ORD * BEDSIDE US STUDY ARCHIVE (08/01/2024 10:07 AM CDT) Narrative Ayesha Silva - 08/01/2024 10:07 AM CDT The patient was seen for ultrasound guided injection by Dr. Chele Bowman. Ultrasound was not used for diagnostic purposes, but to guide the needle placement and document the position of the injection. ?? See patient's EPIC encounter for the detail of the procedure; see BRAD for saved images of the injection. Chele Bowman MD PROCEDURE ORD * (ABNORMAL) LIPID PANEL W REFLEX MEASURED LDL (04/07/2018 9:32 AM CDT) CHOLESTEROL,TOTAL 243(H) 100 - 199 mg/dL 04/07/2018 4:07 PM CDT [facility] TRIGLYCERIDES 165(H) <150 mg/dL 04/07/2018 4:07 PM CDT [facility] HDL CHOLESTEROL 63 >40 mg/dL 8 4:07 PM CDT [facility] NON-HDL CHOLESTEROL 180(H) <145 mg/dl 04/07/2018 4:07 PM CDT [facility] CHOL/HDL RATIO 3.86 <4.50 04/07/2018 4:07 PM CDT [facility] LDL CHOLESTEROL 147(H) <=130 mg/dL 04/07/2018 4:07 PM CDT [facility] PROVIDER ORDERED STATUS RANDOM 04/07/2018 4:07 PM CDT [facility] Blood BLOOD SPECIMEN / Unknown Venipuncture / Unknown 04/07/2018 9:32 AM CDT 04/07/2018 9:32 AM CDT Harriet HARMON CHEMISTRY [facility] [address] [place] [address], [place] * COLONOSCOPY (12/01/2017 7:59 AM PIPELINE DISPATCH OPERATOR) 12/01/2017 7:59 AM PIPELINE DISPATCH OPERATOR Narrative Transcriptions Rambo Rendon MD - 12/01/2017 [...] adequate candidate for conscious sedation. The PCF-Q290AL [id number] was passed through the anus and advanced tothe cecum, identified by appendiceal orifice and ileocecal valve. The PCF-Q290AL [id number] was passed through the and advanced to. [...] 7:59 AM Procedure Code(s): --- Professional --- 72377, Colonoscopy, flexible; with biopsy, single or multiple Diagnosis Code(s): --- Professional --- K60.2, Anal fissure, unspecified K62.1, Rectal polyp K62.5, Hemorrhage of anus and rectum Z86.010, Personal history of colonicpolyps Q43.8, Other specified congenitalmalformations of intestine CPT copyright 2016 [employer]. All rights reserved. The codes documented in this report are preliminary and upon wash driller reviewmay be revised to meet current compliance requirements. Scope In: 8:40:27 AM Scope Withdrawal Time 0 hours 13 minutes 16 seconds Scope Out: 9:15:50 AM Rambo Rendon MD PROCEDURE ORD * XR MAMMO UNI ADDL VIEWS LEFT (10/13/2017 1:25 PM PIPELINE DISPATCH OPERATOR) Anatomical Region Laterality Modality BREASTS, Breast Left Mammography Impressions 10/13/2017 1:44 PM PIPELINE DISPATCH OPERATOR ??BI-RADS Category 2: Benign RECOMMENDATION: ??Routine screening. ?? NOTE: ??I discussed today's imaging findings with the patient. Joby Fajardo D.O. Diagnostic Radiologist [email or web address] ?? / ?? Narrative 10/13/2017 1:44 PM PIPELINE DISPATCH OPERATOR ADDITIONAL VIEWS LEFT BREAST, 10/13/2017 CLINICAL HISTORY: [...] position of the LEFT breast. ?? Harriet HARMON MAMMO * XR DEXA BONE DENSITY 2 SITES (10/16/2009 1:45 PM PIPELINE DISPATCH OPERATOR) Anatomical Region Laterality Modality Spine, HIPS, HIPL, HIPR Other 10/16/2009 1:45 PM PIPELINE DISPATCH OPERATOR Narrative 10/21/2009 4:01 PM PIPELINE DISPATCH OPERATOR A scan was deleted from the Results section by Irene Gill [[id number]] on 10/21/2009 at 3:57 PM (File: [id number]) Please see scanned document for results of this study. Procedure Note Analy Elias - 10/23/2009 A scan was deleted from the Results section by Irene Gill [[id number]] on10/21/2009 at 3:57 PM (File: [id number]) Please see scanned document for results of [...] 4:44 PM 10/17/2015 7:23 PM Care Teams Chief Of Police Relationship Specialty Start Date End Date Charlotte Gillespie MD [address] [place] [address] PCP - General Family Practice 04/09/19 Angelica Geller MD [address] [place] [address] [address] [place] [address] Urology Surgery - Colon and Rectal 11/28/17
--- OUTSIDE RECORDS SUMMARY | 2024-08-21 10:26 | XMS_ITS | Continuity of Care Document ---
Author Organization [facility] Address [address] [place] [address] Phone Care Team Providers Care Table Assembler Metal Name Role Phone Naeem Virk Unavailable Unavaila [...] Assist Apply Spinal Prosthetic Device [place] [facility] [place] Lwr Spine, Min 4 Views Advance Directives Directive Yes / No Effective Date File Name No Information Encounters Encounter Description Practice Location Reason(s) For Visit Diagnoses Date Provider Providers Copied on Encounter [facility], [address], [place], [place], [id number] , [place] tel:[phone] [facility] No Information 7 Padmaja Fengolas. [facility], [address], [place], [address], [place]. tel:[phone] [facility], [address], [place], [place], [id number] , [place] tel: [phone] [facility] Arthrodesis statusEncount er for other specified surgical aftercare 6 Giang Naeem. [facility], [address], [place], [address], [place]. tel:[phone] Referring Provider: Chele Holloway, [address], [place], [address]. tel:[phone] [facility], [address], [place], [place], [id number] , [place] tel:[phone] [facility] Arthrodesis statusEncount er for other specified surgical aftercare 6 Giang Naeem. [facility], [address], [place], [address], [place]. tel:[phone] Referring Provider: Chele Holloway, [address], [place], [address]. tel:[phone] [facility], [address], [place], [place], [id number] , [place] tel:[phone] [facility] No Information [address] [facility], [address], [place], [place], [id number], [place]. tel:[phone] [facility], [address], [place], [place], [id number] , tel:[phone] [facility] No Information 5 Transfeldt Ensor. [facility], [address] [place] [address], [address], [id number], [place]. tel:[phone] Referring Provider: Chele Holloway, [employer] [address], [place], [address]. tel:[phone] [facility], [address], [place], [place], [id number] , [place] [phone] [facility] Spinal stenosis, lumbar regionSpondyl olisthesis, lumbar region 5 Padmaja Hartley. [address], [address], [place]. tel:[phone] Referring Provider: Klaus Herndon, [facility] [address], [address], [address]. tel:[phone] Office/Outpa tient Visit,[facility], [address], [place], [place], [id number] , [place] [phone] [facility] Spinal stenosis, lumbar regionSpondyl olisthesis, lumbar region [address] [facility], [address] [place] [address], [address], [id number], [place]. tel:[phone] Referring Provider: Chele Holloway, [employer] [address], [address]. tel:[phone] Family History Family Member Type Diagnosis Age [...] Radiology Order Joan mbosacral Min. 4 Views ([id number]), Ordered on: Ordered History Of Present Illness Encounter Date Complaint History Of Prese nt Illness No Information Functional Status Date Functional Assessmen t No Information Instructions Date Instruction Additional Infor mation No Information Assessments Type Assessment Date No Information Patient Care Teams Name Effective Dates (start - stop) Status Members No Information
--- OUTSIDE RECORDS SUMMARY | 2024-08-21 10:27 | XMS_ITS | Referral Summary ---
Author Organization [facility] Address [address] [place] [address]. [place] [address] Care Team Providers Care Rail Transit Operator Name Role Phone Charlotte Gillespie MD Primary Care Provider + Allergies Active Allergy Reactions Criticality Noted Date Comments Carbamazepine Unknown 02/27/2020 Mirtazapine 12/18/2021 Weight gain Trazodone 12/18/2021 nightmares Zolpidem 12/18/2021 nightmares Medications pregabalin (LYRICA) 100 MG capsule Take 100 mg by mouth 2 times daily Active vitamin D3 (CHOLECALCIFERO L) 50 mcg (2000 units) tablet Take 1 [...] 2 capsules by mouth daily Active senna-docusate (SENOKOT-S/GRETA COLACE) 8.6-50 MG tablet Take 1 tablet by mouth 2 times daily as needed for constipation Take 0.5 - 1 tab daily PRN Active cetirizine (ZYRTEC) 10 MG tablet Take 10 mg by mouth daily as needed for allergies Active sulfamethoxazol e-trimethoprim (BACTRIM DS) 800-160 MG tablet TAKE 1 TABLET BY MOUTH TWICE A DAY 2 Active ibuprofen (ADVIL/MOTRIN) 600 MG tabletIndicatio ns:Post-operati ve state Take 1 tablet (600 mg) by mouth every 6 hours as needed for moderate pain 30 tablet 2 Active Active Problems Problem Noted Date Diagnosed Date Post-operative state 12/28/2021 Social History Tobacco Use Types Packs/Day Years Used Date Smoking Tobacco: Never Smokeless Tobacco: Never Alcohol Use Standard Drinks/Week Comments Yes 0 (1 standard drink = 0.6 oz pur e alcohol) occ Adolescent Education Answer Date Record ed Getting School Help Needed Not on file 07/09 Comments No Sex and Gender Information Value Date Recorded Sex Assigned at Not on file Legal Sex Female 3:04 PM DRUM BUILDER Gender Identity Not on file Sexual Orientation [...] on file Medical Devices Implanted Type Area Patternmaker All Around Device Identifier Shelf Expiration Date Model / Serial / Lot Mesh Sling Prolapse Polyform Synth [id number] - [id number] Implanted:Qty: 1 on 12/28/2021 by Ria Kim MD at [facility] Mesh N/A: Pelvis [employer] 11/16/2024 [id number] / / [id number] Mesh Sling Advantage Fit System [id number] - [id number] Implanted:Qty: 1 on 12/28/2021 by Ria Kim MD at [facility] Mesh N/A: Pelvis [employer] 11/30/2024 [id number] / / [id number] Insurance MEDICARE [facility] BLUE Advance Directives For more information, please contact: [phone] * Full Code (Latest Code Status on File) Date Activated Date Inactivated Comments 12/28/2021 1:25 PM 12/29/2021 5:29 PM All basic an d advanced life-sustaining interventions are performed as appropriate Question Answer Comments Code status determined by: Discussion with patie nt/ legal decision maker Care Teams Rail Transit Operator Relationship Specialty Start Date End Date Charlotte Gillespie MD [facility] [address] [place] [address] PCP - General Family Medicine 12/09/21
== END 2024-08-21 10:23 | disposition home or self-care (01) ==
LOC: NFLDREF 10:24
PROVIDERS: PCP Family Medicine; Visit Provider Family Medicine
DX: Z01.818 Encounter for other preprocedural examination (principal); I10 Essential (primary) hypertension; E78.5 Hyperlipidemia, unspecified
CPT/HCPCS: 80048; 80061

== ENCOUNTER 2024-10-31 09:11 | Outpatient (CLI) | payer OTHER, SELFPAY ==
--- NOTE | 2024-10-31 09:15 | CRLHL7_ITS ---
For Patients: As a result of the Century Cures Act, medical imaging exams and procedure reports are released immediately into your electronic medical record. You may view this report before your referring provider. If you have questions, please contact your health care provider. INDICATION: Left-sided trigeminal neuralgia. Comparison 02/14/2023. TECHNIQUE: Multiplanar T1, T2, FLAIR and diffusion-weighted imaging. Post gadolinium T1 weighted sequences. Additional pre and post gadolinium sequences of the skullbase with special attention to the trigeminal nerves. FINDINGS: Mild to moderate generalized volume loss. Stable scattered patchy T2/FLAIR signal hyperintensity within the white matter of both cerebral hemispheres consistent with chronic deep white matter small vessel ischemic changes. No restricted diffusion to suggest acute ischemia. No abnormal enhancement or enhancing lesions within the brain parenchyma. Dedicated sequences of the skull base demonstrates normal course of cranial nerves. No abnormal mass or enhancement within cerebellopontine angles are IAC`s. Normal course of the bilateral trigeminal nerves. No abnormal mass or enhancement. No evidence of an impinging vascular loop. Bilateral orbits are unremarkable. Normal appearing sella. Visualized paranasal sinuses mastoid air cells are unremarkable. IMPRESSION: 1. No interval change 2. No acute intracranial abnormality 3. [id number] generalized cerebral volume loss. Chronic deep white matter small vessel ischemic changes 4. No abnormal enhancement or enhancing lesions. 5. Dedicated sequences of the skull base demonstrates normal course of cranial nerves. No abnormal mass or enhancement. Normal course of the bilateral trigeminal nerves. Dictated by Reji Geller MD @ 10/31/2024 4:09:56 PM (Electronically Signed)
== END 2024-10-31 09:12 | disposition home or self-care (01) ==
LOC: MRI 09:13
PROVIDERS: PCP Family Medicine; Visit Provider Neurological Surgery
DX: G50.0 Trigeminal neuralgia (principal); I67.82 Cerebral ischemia
CPT/HCPCS: 70553; A9575

== ENCOUNTER 2024-11-07 08:15 | Outpatient (RCR) | payer OTHER, SELFPAY ==
--- OUTSIDE RECORDS SUMMARY | 2024-10-18 08:42 | XMS_ITS | Referral Summary ---
Author Organization [facility] Address [address] [place] [address]. [place] [address] Care Team Providers Care Inverform Machine Operator Name Role Phone Charlotte Gillespie MD [...] on file Legal Sex Female 3:04 PM SKIN CARE CONSULTANT Gender Identity Not on file Sexual Orientation Not on file Last Filed Vital Signs Vital Sign Reading Time Taken Comments Blood Pressure 116/64 12/29/2021 3:59 AM CDT Pulse 75 12/29/2021 8:30 AM CDT Temperature 37.1 C (98.7 F) 12/29/2021 8:30 AM CDT Respiratory Rate 19 12/29/2021 8:30 AM CDT Oxygen Saturation 94% 12/29/2021 8:30 AM CDT Inhaled Oxygen Concentration - - Weight 86.2 kg (190 lb 1.6 oz) 12/28/2021 6:10 A M CDT Height 171.5 cm (5' 7.5) 12/28/2021 6:10 AM CDT Body Mass Index 29.33 12/28/2021 6:10 AM CDT Plan of Treatment Not on file Medical Devices Implanted Type Area Aerobics Instructor Device Identifier Shelf Expiration Date Model / Serial / Lot Mesh Sling Prolapse Polyform Synth [id number] - [id number] Implanted:Qty: 1 on 12/28/2021 by Ria Kim MD at [facility] Mesh N/A: Pelvis [employer] 11/16/2024 [id number] / / [id number] Mesh Sling Advantage Fit System [id number] - [id number] Implanted:Qty: 1 on 12/28/2021 by Ria Kim MD at [facility] Mesh N/A: Pelvis [employer] 11/30/2024 [id number] / / [id number] Insurance MEDICARE [facility] BLUE Advance Directives For more information, please contact: [phone] * Full Code (Latest Code Status on File) Date Activated Date Inactivated Comments 12/28/2021 1:25 PM 12/29/2021 5:29 PM All basic an d advanced life-sustaining interventions are performed as appropriate Question Answer Comments Code status determined by: Discussion with patie nt/ legal decision maker Care Teams Inverform Machine Operator Relationship Specialty Start Date End Date Charlotte Gillespie MD [facility] [address] [place] [address] PCP - General Family Medicine 12/09/21
--- OUTSIDE RECORDS SUMMARY | 2024-10-18 08:42 | XMS_ITS | Clinical Summary ---
Author Organization [facility] Address [place], [place] [address] Care Team Providers Care Coater Associate Name Role Phone Angelica Geller MD Unavailable [phone] Charlotte Gillespie MD Primary Care Provider + Allergies Active Allergy Reactions Criticality Noted Date Comments Carbamazepine Hives High 02/27/2020 Mirtazapine Hives 12/18/2021 Weight gain Trazodone Nightmares 12/18/2021 nightmares Zolpidem Nightmares 12/18/2021 nightmares Medications cetirizine (ZYRTEC) 10 mg tablet Take 1 tablet by mouth once daily. 0 1 Active estradiol (ESTRACE) 0.5 mg tablet Take 0.5 mg by mouth once daily. 9 Active lisinopriL (PRINIVIL; ZESTRIL) 10 mg tablet Take 10 mg by mouth once daily. 3 Active pregabalin (LYRICA) 50 mg capsuleIndicati ons:Trigeminal neuralgia of left side of face Take 2 Capsules (100 mg) by mouth two times daily. 120 Capsule 1 4 Active DULoxetine (CYMBALTA) 20 mg Delayed-release capsuleIndicati ons:Trigeminal neuralgia of left side of face Take 1 Capsule (20 mg) by mouth two times daily. 60 Capsule 1 4 Active rosuvastatin (CRESTOR) 5 mg tablet Take 5 mg by mouth at bedtime. 4 Active oxyCODONE (ROXICODONE) 5 mg immediate release tabletIndicatio ns:Left-sided trigeminal neuralgia Take 1 Tablet (5 mg) by mouth every 6 hours if needed for Pain. 20 Tablet 08/28/2024 12:27 PM ADJUSTER 4 Active methylPREDNISol one (MEDROL DOSEPAK) 4 mg tabletIndicatio ns:Trigeminal neuralgia of left side of face Take by mouth as instructed per packaging. 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 Nuclear senile cataract of both eyes 09/26/2020 Cervical stenosis of spine 04/10/2018 Insomnia due to medical condition 06/16/2017 Pelvic mass in female 06/01/2017 Overview (06/01/2017): Added automatically from request for surgery [id number] Chronic fatigue 05/27/2017 Constipation by delayed colonic [...] disks 03/25/2008 05/28/2013 Overview (03/25/2008): 1999 discectomy 2000 C5-6 fusion (ACDF) 2004 C3-5 ACDF Cervicalgia 05/28/2013 Encounters Date Type Department Care Team Description 10/12/2024 1:30 PM ADJUSTER [facility] [address] [address] Felisha Mcdowell NP Surgical Followup 10/11/2024 Travel 10/04/2024 Travel 10/01/2024 Travel 08/28/2024 10:23 AM ADJUSTER Anesthesia Event [facility] [address] [place] [address] Percy Tompkins MD Augustin, Joshua Ryan, DO 08/28/2024 9:10 AM ADJUSTER - 08/28/2024 11:03 AM ADJUSTER Surgery [facility] [address] [place] [address] Elliott Muir MD Redo left sided balloon compression rhizotomy 08/28/2024 7:28 AM ADJUSTER - 08/28/2024 1:32 PM ADJUSTER Hospital Encounter [facility] [address] [place] [address] Elliott Muir MD Left-sided trigeminal neuralgia (Primary Dx) Discharge Disposition: Home Self Care 08/27/2024 Travel 08/15/2024 10:30 AM CDT [facility] [address] [address] Ida Orta PA Telehealth (Left trigeminal nerve pain.) 08/15/2024 Travel 08/09/2024 7:20 AM CDT Procedure Only [facility] [address] [place] [address] Chele Bowman MD Procedure (Ultrasound guided injection rig... 08/08/2024 Travel 08/01/2024 7:45 AM CDT Procedure Only [facility] [address] [place] [address] Chele Bowman MD Procedure (Right common extensor tendon PA... 07/31/2024 Travel 07/27/2024 11:20 AM CDT Office Visit [facility] [address] [place] [address] Chele Bowman MD Musculoskeletal Problem (Consult right elbow pain discuss possible PRP (platelet rich plasma)) 07/27/2024 Travel from Last 3 Months Immunizations Name Administration [...] Answer Date Recorded PHQ-2 Score 2 12/16/2018 Comments No Sex and Gender Information Value Date Recorded Sex Assigned at Not on file Legal Sex Female 5:25 AM ADJUSTER Gender Identity Not on file Sexual Orientation Not on file Occupation Industry Job Start Date Job End Date Not on file Not on file Not on file Not on file Obstetrics History Para Term [...] Sign Reading Time Taken Comments Blood Pressure 120/62 08/28/2024 1:15 PM ADJUSTER Pulse 64 08/28/2024 1:15 PM ADJUSTER Temperature 36.2 C (97.2 F) 08/28/2024 11:30 AM ADJUSTER Respiratory Rate 16 08/28/2024 1:15 PM ADJUSTER Oxygen Saturation 94% 08/28/2024 1:15 PM ADJUSTER Inhaled Oxygen Concentration - - Weight 85.3 kg (188 lb) 08/28/2024 8:06 AM ADJUSTER Height 170.2 cm (5' 7) 08/28/2024 8:06 AM ADJUSTER Body Mass Index 29.44 08/28/2024 8:06 AM ADJUSTER Plan of Treatment Health Maintenance Due Date Last Done Comments Hepatitis C screening for ag e 18-79 1973 Pneumococcal series for age 50+ (1 of 1 - PCV) 2005 Zoster (shingles) series for age 50+ (1 of 2) 2005 Mammogram for age 45-75 10/13/2018 10/13/20 17, 10/11/2017, 09/07/2016, Additional history exists Depression screening for age 12+ 04/18/2019 04/18/2018, 02/16/2017, 02/18/2016 DEXA/DXA scan for age 65+ 2020 10/16/2009 Medicare Wellness for age 65+ 2020 Tetanus booster 08/17/2021 08/17/2011, 03/17 (Completed outside of [facility]) Colonoscopy through age 75 12/01/202212/01, 12/01/2017, 09/20/2014, Additional history exists Lipids for age 45-75 04/07/2023 04/07/2018, 12/26/2014, 04/27/2011, Additional history exists BMI (ht and wt on same day) for age 18+ 03/02/2024 03/02/2023, 04/09/2019, 10/20/2018, Additional history exists COVID-19 vaccine series ( season) 2024 11/24/2023, 07/31/2021, 01/13/2021, Additional history exists Influenza for age 65+ 06/17/2024 08/14/2018 , 07/06/2017, 07/31/2016, Additional history exists RSV vaccine for adults or (1 - 1-dose 75+ series) 2030 Tdap Completed 08/17/2011 Medical Devices Implanted Type Area Top Dyeing Machine Loader Device Identifier Shelf Expiration Date Model / Serial / Lot Chang Lmbr 40x5.5mm Tsrh 3d Cvd Titnm - [id number] Implanted:Qty: 1 on 10/14/2015 by Klaus Mercado MBChB at [facility] Spine Implants N/A: Spine Medtronic Spine/Ortho [id number] # / / [id number] 60cc Mtf Crushed Canclls [[id number]] Implanted:Qty: 1 on 10/14/2015 by Klaus Mercado MBChB at [facility] Explanted:at [facility] (Quantity not on file) N/A: Spine Musculoskeletal Transplant 06/11/2018 [id number]# / [id number] / Spacer Lmbr 11h32st Arbela Vb Tlif Peek - [id number] Implanted:Qty: 1 on 10/14/2015 by Klaus Mercado MBChB at [facility] N/A: Spine Medtronic Spine/Ortho [id number] # / / [id number] 7 Set Screw Lmbr Tsrh 3dx - [id number] Implanted:Qty: 4 on 10/14/2015 by Klaus Mercado MBChB at [facility] N/A: Spine Medtronic Spine/Ortho [id number] # / / Cnnctr Lmbr Sm Tsrh 3dx Offsettitnm - [id number] Implanted:Qty: 4 on 10/14/2015 by Klaus Mercado MBChB at [facility] N/A: Spine Medtronic Spine/Ortho [id number] # / / Screw Lmbr Post 6.5x40mm Tsrh 3dx Og Thin Va - [id number] Implanted:Qty: 4 on 10/14/2015 by Klaus Mercado MBChB at [facility] N/A: Spine Medtronic Spine/Ortho [id number]# / / Chang Lmbr 45x5.5mm Tsrh 3d Cvd Titnm - [id number] Implanted:Qty: 1 on 10/14/2015 by Klaus Mercado [facility] at [facility] N/A: Spine Medtronic Spine/Ortho [id number] # / / Plate Cerv 1lvl 23mm Ellerbe Vision Elite Ant - [id number] Implanted:Qty: 1 on 04/12/2018 by Fitz Rojas MD at [facility] N/A: Spine Medtronic Spine/Ortho [id number] # / / [id number] Cornerstone Acc Implanted:Qty: 1 on 04/12/2018 by Fitz Rojas MD at [facility] Explanted:at [facility] (Quantity not on file) N/A: Spine Medtronic Spine/Ortho 09/12/2020 [id number]# / [id number] / [id number] 1cc Jayden Plus Paste Dbm Implanted:Qty: 1 on 04/12/2018 by Fitz Rojas MD at [facility] Explanted:at [facility] (Quantity not on file) N/A: Spine Medtronic Spine/Ortho 11/01/2019 [id number]# / [id number] / Screw Cerv Ant 4x14mm Atlantistranslational Va Slf Tppng - [id number] Implanted:Qty: 4 on 04/12/2018 by Fitz Rojas MD at [facility] N/A: Spine Medtronic Spine/Ortho [id number] # / / Procedures Procedure Name Priority Date/Time Associated Diagnosis Comments SCAN CORRESP-IMAGING 08/28/2024 11:29 AM ADJUSTER ENDOTRACHEAL TUBE Routine 08/28/2024 11:23 AM ADJUSTER XR SKULL EQUAL OR LESS 3 VIEWS PORTABLE Routine 08/28/2024 11:21 AM ADJUSTER XR C-ARM GREATER 1 HR Routine 08/28/2024 11:20 AM ADJUSTER TRIGEMINAL RHIZOTOMY Tier 1 08/28/2024 9:50 AM ADJUSTER Trigeminal neuralgia of left side of face Case Notes Supine, C-arm reg, C-arm 2X. Head cantu bag, Cardiac defibrillator and the pacer pads TYPE & SCREEN Preop 08/28/2024 8:24 AM ADJUSTER HEMOGLOBIN Preop 08/28/2024 8:24 AM ADJUSTER SCAN-CARDIAC STRIP 08/28/2024 12:00 AM ADJUSTER SCAN CORRESP-LABORATORY RESULTS 08/21/2024 4:09 PM ADJUSTER BEDSIDE US STUDY ARCHIVE Routine 08/09/2024 11:49 AM CDT Arthritis of right shoulder region Right shoulder tendonitis BEDSIDE US STUDY ARCHIVE Routine 08/01/2024 10:07 AM CDT Lateral epicondylitis, right elbow Chronic elbow pain, right LIPID PANEL W REFLEX MEASURED LDL Routine 04/07/2018 9:32 AM CDT Screening cholesterol level COLONOSCOPY 12/01/2017 7:59 AM ADJUSTER XR MAMMO UNI ADDL VIEWS LEFT Routine 10/13/2017 1:25 PM ADJUSTER Abnormal mammogram XR DXA BONE DENSITY 2 SITES AXIAL Routine 10/16/2009 1:45 PM ADJUSTER Screening for Osteoporosis from Last 3 Months or Most Recently Relevant to Health Maintenance Results * SCAN CORRESP-IMAGING (08/28/2024 11:29 AM ADJUSTER) Anatomical Region Laterality Modality Other Narrative 08/28/2024 11:29 AM ADJUSTER Ordered by an unspecified provider. us Other Clinical Staff OTHER Final Resul t * ETT (08/28/2024 11:23 AM ADJUSTER) Narrative Marily Kruse CRNA Student - 08/28/2024 11:23 AM ADJUSTER Marily Kruse CRNA Student 08/28/2024 11:27 AM Procedure: ETT Patient location during procedure: OR ETT Properties Mask Ventilation: easy and oral airway Final Technique: video laryngoscopy Type: straight Location: oral Cuffed: yes Tube Size: 7.5 mm Stylet: yes Laryngoscope Blade: Glidescope Blade Size: 3 Cormack-Lehane Grade View: 1 Insertion Attempts: 1 Placement Verification: auscultation Assessment: pharynx clear, atraumatic and dentition unchanged Secured at: 22 Measured From: lips Bite Block: soft Difficulty: 0 (not difficult) Percy Tompkins MD ANESTHESIA PX NOTE ORDERABLES Final Result * XR SKULL EQUAL OR LESS 3 VIEWS PORTABLE (08/28/2024 11:21 AM ADJUSTER) Anatomical Region Laterality Modality SKULL Digital Radiogra phy Narrative 08/28/2024 9:34 AM ADJUSTER No radiology involvement necessary. See chart for further information. Elliott Muir MD GENERAL IMAGING Final Re sult * XR C-ARM GREATER 1 HR (08/28/2024 11:20 AM ADJUSTER) Anatomical Region Laterality Modality Other Narrative 08/28/2024 9:34 AM ADJUSTER 20 seconds fluoroscopy time was provided. See operative/procedure report for further information. Elliott Muir MD FLUOROSCOPY Final Re sult * Type and Screen (08/28/2024 8:24 AM ADJUSTER) ABORH A Rh Positive 08/28/2024 9:15 AM ADJUSTER [facility] ANTIBODY SCREEN Negative Negative 08/28/2024 9:15 AM ADJUSTER [facility] SPECIMEN EXPIRATION DATE/TIME 08/31/24 23:59 08/28/2024 9:15 AM ADJUSTER [facility] Blood BLOOD SPECIMEN / Unknown Venipuncture / Unknown 08/28/2024 8:24 AM ADJUSTER 08/28/2024 8:33 AM ADJUSTER Felisha Mcdowell NP BLOOD BANK Final Result [facility] [address] [place] [address], [place] [phone] * HEMOGLOBIN (08/28/2024 8:24 AM ADJUSTER) HEMOGLOBIN 13.0 12.0 - 16.0 g/dL 08/28/2024 8:44 AM ADJUSTER [facility] MCV 88 80 - 100 fL 08/28/2024 8:44 AM ADJUSTER [facility] Blood BLOOD SPECIMEN / Unknown Venipuncture / Unknown 08/28/2024 8:24 AM ADJUSTER 08/28/2024 8:33 AM ADJUSTER us Mitchel Echeverria DO HEMATOLOGY Final Re sult [facility] [address] [place] [address], [place] * SCAN-CARDIAC STRIP (08/28/2024 12:00 AM ADJUSTER) Narrative 08/28/2024 12:00 AM ADJUSTER Ordered by an unspecified provider. us Other Clinical Staff OTHER Final Resul t * SCAN CORRESP-LABORATORY RESULTS (08/21/2024 4:09 PM ADJUSTER) Narrative 08/21/2024 4:09 PM ADJUSTER Ordered by an unspecified provider. us Other Clinical Staff OTHER Final Resul t * BEDSIDE US STUDY ARCHIVE (08/09/2024 11:49 AM CDT) Narrative Ayesha Silva - 08/09/2024 11:49 AM CDT The patient was seen for ultrasound guided injection by Dr. Chele Bowman. Ultrasound was not used for diagnostic purposes, but to guide the needle placement and document the position of the injection. See patient's EPIC encounter for the detail of the procedure; see BRAD for saved images of the injection. us Chele Bowman MD PROCEDURE ORD Final Resu lt * BEDSIDE US STUDY ARCHIVE (08/01/2024 10:07 AM CDT) Narrative Ayesha Silva - 08/01/2024 10:07 AM CDT The patient was seen for ultrasound guided injection by Dr. Chele Bowman. Ultrasound was not used for diagnostic purposes, but to guide the needle placement and document the position of the injection. See patient's EPIC encounter for the detail of the procedure; see BRAD for saved images of the injection. Chele Bowman MD PROCEDURE ORD Final Resu lt * (ABNORMAL) LIPID PANEL W REFLEX MEASURED LDL (04/07/2018 9:32 AM CDT) Pathologist [facility] CHOLESTEROL,TOTAL 243(H) 100 - 199 mg/dL 04/07/2018 4:07 PM CDT [facility] TRIGLYCERIDES 165(H) <150 mg/dL 04/07/2018 4:07 PM CDT [facility] HDL CHOLESTEROL 63 >40 mg/dL 8 4:07 PM CDT [facility] NON-HDL CHOLESTEROL 180(H) <145 mg/dl 04/07/2018 4:07 PM CDT [facility] CHOL/HDL RATIO 3.86 <4.50 04/07/2018 4:07 PM CDT [facility] LDL CHOLESTEROL 147(H) <=130 mg/dL 04/07/2018 4:07 PM CDT [facility] PROVIDER ORDERED STATUS RANDOM 04/07/2018 4:07 PM CDT [facility] Blood BLOOD SPECIMEN / Unknown Venipuncture / Unknown 04/07/2018 9:32 AM CDT 04/07/2018 9:32 AM CDT us Harriet HARMON CHEMISTRY Final R esult [facility] [address] [place] [address], [place] * COLONOSCOPY (12/01/2017 7:59 AM ADJUSTER) 12/01/2017 7:59 AM ADJUSTER Narrative Transcriptions Rambo Rendon MD - 12/01/2017 [...] adequate candidate for conscious sedation. The PCF-Q290AL [id number] was passed through the anus and advanced tothe cecum, identified by appendiceal orifice and ileocecal valve. The PCF-Q290AL [id number] was passed through the and advanced to. [...] reponse to care. [facility] and nursing notes for moderate sedation details. Total physician intraservice time was 39 minutes. Rambo Rendon MD 12/01/2017 9:26:30 AM This report has been signed electronically. Note Initiated On: 12/01/2017 7:59 AM Procedure Code(s): --- Professional --- 21228, Colonoscopy, flexible; with biopsy, single or multiple Diagnosis Code(s): --- Professional --- K60.2, Anal fissure, unspecified K62.1, Rectal polyp K62.5, Hemorrhage of anus and rectum Z86.010, Personal history of colonicpolyps Q43.8, Other specified congenitalmalformations of intestine CPT copyright 2016 [employer]. All rights reserved. The codes documented in this report are preliminary and upon protective service specialist reviewmay be revised to meet current compliance requirements. Scope In: 8:40:27 AM Scope Withdrawal Time 0 hours 13 minutes 16 seconds Scope Out: 9:15:50 AM us Rambo Rendon MD PROCEDURE ORD Final Res ult * XR MAMMO UNI ADDL VIEWS LEFT (10/13/2017 1:25 PM ADJUSTER) Anatomical Region Laterality Modality BREASTS, Breast Left Mammography Impressions 10/13/2017 1:44 PM ADJUSTER BI-RADS Category 2: Benign RECOMMENDATION: Routine screening. NOTE: I discussed today's imaging findings with the patient. Joby Fajardo D.O. Diagnostic Radiologist [email or web address] / Narrative 10/13/2017 1:44 PM ADJUSTER ADDITIONAL VIEWS LEFT BREAST, 10/13/2017 CLINICAL HISTORY: Recall for further evaluation of an asymmetry in the inferior aspect of the LEFT mid breast on MLO view of screening study, 10/11/2017. TECHNIQUE: Spot compression MLO (x 2), ML and spot compression CC views. BREAST COMPOSITION: Heterogeneously dense. FINDINGS: The asymmetry in the inferior mid LEFT breast on the MLO projection is not reproducible on the spot compression MLO projections or the MLO projection. Re-demonstrated is a previously diagnosed cyst at the mid 3 o'clock position of the LEFT breast. Harriet HARMON MAMMO Final R esult * XR DEXA BONE DENSITY 2 SITES (10/16/2009 1:45 PM ADJUSTER) Anatomical Region Laterality Modality Spine, HIPS, HIPL, HIPR Other 10/16/2009 1:45 PM ADJUSTER Narrative 10/21/2009 4:01 PM ADJUSTER A scan was deleted from the Results section by Irene Gill [[id number]] on 10/21/2009 at 3:57 PM (File: [id number]) Please see scanned document for results of this study. Procedure Note Analy Elias - 10/23/2009 A scan was deleted from the Results section by Irene Gill [[id number]] on10/21/2009 at 3:57 PM (File: [id number]) Please see scanned document for results of this study. Jamaica Pennington NP DEXA F inal Result from Last 3 Months or Most Recently Relevant to Health Maintenance Insurance * Guarantor: Regina Vargas Account Type Relation to Patient Date of Phone Billing Address Personal/Family Self 1955 [address] [place] [address] MEDICARE ADVANTAGE MR MEDICARE PART A HB ONLY * Guarantor: Regina Vargas Account Type Relation to Patient Date of Phone Billing Address Workers Comp Self 1955 [address] [place] [address] URIEL GARCIA * Guarantor: Regina Vargas Account Type Relation to Patient Date of Phone Billing Address Workers Comp Self 1955 [address] [place] [address] URIEL GARCIA * Guarantor: eRgina Vargas Account Type Relation to Patient Date of Phone Billing Address Motor Vehicle Self 1955 [address] [place] [address] [facility] [employer] ([place]) [address] [place] [phone] Advance Directives * Full Code (Latest Code Status on File) Date Activated Date Inactivated Comments 08/28/2024 7:58 AM 08/28/2024 3:37 PM Question Answer Comments Code Status Discussion: Reviewed Preferences * Full Code Date Activated Date Inactivated Comments 06/23/2023 5:51 [...] Comments 06/17/2017 11:01 AM 06/17/2017 7:24 PM Care Teams Coater Associate Relationship Specialty Start Date End Date Charlotte Gillespie MD [address] [place] [address] PCP - General Family Practice 04/09/19 Angelica Geller MD [address] [place] [id number] Urology Surgery - Colon and Rectal 11/28/17
--- OUTSIDE RECORDS SUMMARY | 2024-10-18 08:42 | XMS_ITS | Clinical Summary ---
Author Organization [facility] Address [address] [place] [address]. [place] [address] Care Team Providers Care Joint Cleaning Machine Operator Name Role Phone Charlotte Gillespie [...] on file Legal Sex Female 3:04 PM GAUGE MAKER Gender Identity Not on file Sexual Orientation [...] 1965 HEPATITIS C SCREENING 1973 LIPID 1995 FALL RISK ASSESSMENT 2020 MEDICARE ANNUAL WELLNESS VISIT 2020 Pneumococcal Vaccine: 50+ Years (2 of 2 - PPSV23) 07/07/2022 07/07/2021 PHQ-2 (once per calendar year) 2023 COVID-19 Vaccine (4 - 2023- season) 2024 07/31/2021, 01/13/2021, 12/23/2020 INFLUENZA VACCINE (#1) 2024 , 08/13/2020, 08/13/2020, Additional history exists DTAP/TDAP/TD IMMUNIZATION (4 - Td or Tdap) 08/14/2028 08/14/2018, 08/13/2018, 08/17/2011 RSV VACCINE (1 - 1-dose 75+ series) 2030 ZOSTER IMMUNIZATION Completed 12/14/2019, 9 HPV IMMUNIZATION Aged Out No longer e ligible based on patient's age to complete this topic MENINGITIS IMMUNIZATION Aged Out No l onger eligible based on patient's age to complete this topic RSV MONOCLONAL ANTIBODY Aged Out No l onger eligible based on patient's age to complete this topic Medical Devices Implanted Type Area Touring Production Manager Device Identifier Shelf Expiration Date Model / Serial / Lot Mesh Sling Prolapse Polyform Synth [id number] - [id number] Implanted:Qty: 1 on 12/28/2021 by Ria Kim MD at [facility] Mesh N/A: Pelvis [employer] 11/16/2024 [id number] / / [id number] Mesh Sling Advantage Fit System [id number] - [id number] Implanted:Qty: 1 on 12/28/2021 by Ria Kim MD at [facility] Mesh N/A: Pelvis [employer] 11/30/2024 [id number] / / [id number] Insurance MEDICARE [facility] Advance Directives For more information, please contact: [phone] * Full Code (Latest Code Status on File) Date Activated Date Inactivated Comments 12/28/2021 1:25 PM 12/29/2021 5:29 PM All basic an d advanced life-sustaining interventions are performed as appropriate Question Answer Comments Code status determined by: Discussion with lisa nt/ legal decision maker Care Teams Joint Cleaning Machine Operator Relationship Specialty Start Date End Date Charlotte Gillespie MD [facility] [address] [address] PCP - General Family Medicine 12/09/21
== END 2025-03-07 23:59 | disposition home or self-care (01) ==
PROVIDERS: PCP Family Medicine; Visit Provider Family Medicine
DX: M19.011 Primary osteoarthritis, right shoulder (principal); M77.8 Other enthesopathies, not elsewhere classified; M75.21 Bicipital tendinitis, right shoulder; M77.11 Lateral epicondylitis, right elbow; Z51.89 Encounter for other specified aftercare
CPT/HCPCS: 97110; 97140; 97162

== ENCOUNTER 2024-11-23 09:44 | Outpatient (CLI) | payer OTHER, SELFPAY | END 2024-11-23 09:45 | disposition home or self-care (01) | LOC: NFLDREF 09:46 | PROVIDERS: PCP Family Medicine; Visit Provider Family Medicine | DX: I10 Essential (primary) hypertension (principal) | CPT/HCPCS: 80048 ==

== ENCOUNTER 2025-01-01 08:27 | Outpatient (CLI) | payer OTHER, SELFPAY | END 2025-01-01 08:28 | disposition home or self-care (01) | LOC: NFLDREF 01-02 02:46 | PROVIDERS: PCP Family Medicine; Referring Provider Family Medicine; Visit Provider Family Medicine | DX: E78.5 Hyperlipidemia, unspecified (principal); I10 Essential (primary) hypertension; R79.89 Other specified abnormal findings of blood chemistry; R73.03 Prediabetes; E55.9 Vitamin D deficiency, unspecified; Z86.39 Personal history of other endocrine, nutritional and metabolic disease | CPT/HCPCS: 80053; 80061; 82306; 82607 ==

== ENCOUNTER 2025-02-05 14:51 | Outpatient (CLI) | payer OTHER, SELFPAY ==
--- NOTE | 2025-02-05 15:00 | CRLHL7_ITS ---
For Patients: As a result of the Century Cures Act, medical imaging exams and procedure reports are released immediately into your electronic medical record. You may view this report before your referring provider. If you have questions, please contact your health care provider. INDICATION: BILATERAL SCREENING MAMMOGRAM, ASYMPTOMATIC 69 F COMPARISON: 11/04/23, 11/11/22, 08/13/21 TECHNIQUE: CC and MLO views were obtained. These mammographic images have been obtained using full-field digital technique. These mammographic images were interpreted with the benefit of computer aided detection and tomosynthesis. BREAST COMPOSITION: The breasts are heterogeneously dense, which may obscure small masses. FINDINGS: No suspicious findings. ASSESSMENT: BI-RADS 1 Negative RECOMMENDATION: Annual screening mammogram. A lay language report of this examination will be provided to the patient. Dictated by: Benny Sherwood MD @ 02/07/2025 12:54:31 (Electronically Signed)
== END 2025-02-05 14:52 | disposition home or self-care (01) ==
LOC: MAMMO 14:52
PROVIDERS: PCP Family Medicine; Visit Provider Family Medicine
DX: Z12.31 Encounter for screening mammogram for malignant neoplasm of breast (principal); R92.333 Mammographic heterogeneous density, bilateral breasts
CPT/HCPCS: 77063; 77067

== ENCOUNTER 2025-05-21 08:32 | Outpatient (CLI) | payer OTHER, SELFPAY | END 2025-05-21 08:33 | disposition home or self-care (01) | LOC: NFLDREF 05-23 10:42 | PROVIDERS: PCP Family Medicine; Referring Provider Family Medicine; Visit Provider Family Medicine | DX: E55.9 Vitamin D deficiency, unspecified (principal); E78.5 Hyperlipidemia, unspecified; R73.03 Prediabetes; I10 Essential (primary) hypertension | CPT/HCPCS: 80053; 80061; 82306 ==

== ENCOUNTER 2025-07-23 08:06 | Outpatient (CLI) | payer OTHER, SELFPAY | END 2025-07-23 08:07 | disposition home or self-care (01) | LOC: NFLDREF 07-25 12:54 | PROVIDERS: PCP Family Medicine; Referring Provider Family Medicine; Visit Provider Family Medicine | DX: Z79.899 Other long term (current) drug therapy (principal) | CPT/HCPCS: 80053 ==

== ENCOUNTER 2025-09-17 08:29 | Outpatient (CLI) | payer OTHER, SELFPAY ==
[2025-09-17 11:55] LABS: Vitamin B12* 899 pg/mL (243-894)
== END 2025-09-17 08:30 | disposition home or self-care (01) ==
LOC: NPINS 08:30
PROVIDERS: PCP Family Medicine; Visit Provider Psychiatry & Neurology Neurology
DX: Z51.81 Encounter for therapeutic drug level monitoring (principal); G64 Other disorders of peripheral nervous system; G25.81 Restless legs syndrome; M62.81 Muscle weakness (generalized); R20.2 Paresthesia of skin; G50.0 Trigeminal neuralgia
CPT/HCPCS: 82607; 82728